=== PATIENT | male | born 1935 | race Caucasian/White ===

== ENCOUNTER 2019-01-02 10:08 | Observation (INO) | payer MEDICARE, BC ==
--- NOTE | 2019-01-02 10:45 | EDM.PDOC ---
ED HPI GENERAL MEDICAL PROBLEM - General Chief Complaint: General Stated Complaint: MEDICAL [facility] Time Seen by Provider: 01/02/19 10:25 Source of Information: Reports: Patient, EMS History Limitations: Reports: No Limitations - History of Present Illness INITIAL COMMENTS - FREE TEXT/NARRATIVE: 83-year-old male brought in by EMS this morning after struggling with GI symptoms such as nausea, diarrhea, abdominal cramps and also cold symptoms with cough, runny nose for the past 2-3 days but today developed some chest pressure which scared him. He called EMS, and EKG looks stable from previous EKGs. He had taken some nitroglycerin prior to EMS arriving and was feeling better but had a few episodes in route of brief epigastric and substernal fullness with no change in vitals or EKG monitoring. While visiting with the patient he had another episode of one to two minutes of a fullness substernally. He felt uncomfortable yesterday with "sweats, I felt hot". Onset: Gradual Duration: Day(s): (Intermittent symptoms for the past 3-4 days) Location: Reports: Chest, Abdomen Associated Symptoms: Reports: Chest Pain, Fever/Chills, Malaise, Shortness of Breath, Other (Rhinitis, diarrhea) Lower Back Pain Score (Numeric/FACES): 8 - Related Data Allergies Allergy/AdvReac Type Severity Reaction Status Date / Time No Known Allergies Allergy Verified 06/23/15 16:51 Home Meds: Home Meds Aspirin 325 mg PO DAILY 08/10/13 [History] Diltiazem HCl [Diltiazem 12Hr ER] 90 mg PO BID 08/10/13 [History] Lisinopril/Hydrochlorothiazide [Lisinopril-Hctz 20-12.5 mg Tab] 1 each PO BID [History] Metoprolol Succinate [Toprol XL 50mg] 1 tab PO DAILY 08/10/13 [History] Nitroglycerin 0.4 mg SL ASDIRECTED PRN 08/10/13 [History] Simvastatin 1 tab PO BEDTIME 08/10/13 [History] Omeprazole 40 mg PO DAILY 06/23/15 [History] Hydrocodone/Acetaminophen [Hydrocodon-Acetaminophn 10-325] 2 tab PO Q8H PRN [History] LORazepam 0.5 mg PO Q8H PRN 01/02/19 [History] Past Medical History HEENT History: Reports: Impaired Vision Cardiovascular History: Reports: Bypass, CAD, Hypertension, Stents Gastrointestinal History: Reports: Diverticulosis Genitourinary History: Reports: Prostate Disorder Musculoskeletal History: Reports: Arthritis, Back Pain, Chronic Other Oncologic History: skin Other Dermatologic History: skin cancer - Infectious Disease History Infectious Disease History: Reports: Chicken Pox, Measles, Mumps - Past Surgical History Cardiovascular Surgical History: Reports: Valve Replacement, Other (See Below) GI Surgical History: Reports: Appendectomy, Cholecystectomy, Colonoscopy, EGD, Hernia Repair/Other Social & Family History - Family History Cardiac: Reports: CAD, [place] : Reports: Renal Disease/Insufficiency Oncologic: Reports: Brain - Tobacco Use Smoking Status *Q: Former Smoker Used Tobacco, but Quit: Yes Month/Year Tobacco Last Used: many years ago - Caffeine Use Caffeine Use: Reports: Coffee Caffeine Use Comment: rarely - Recreational Drug Use Recreational Drug Use: No ED ROS GENERAL - Review of Systems Review Of Systems: See Below Constitutional: Reports: Fever, Chills, Malaise HEENT: Reports: Rhinitis. Denies: Throat Pain Respiratory: Reports: Shortness of Breath, Cough. Denies: Sputum Cardiovascular: Reports: Chest Pain (Substernal pressure) GI/Abdominal: Reports: Abdominal Pain, Diarrhea, Nausea : Reports: No Symptoms Skin: Reports: Other (Healing chronic lesions on his lower extremities) Neurological: Denies: Headache, Paresthesia Psychiatric: Reports: No Symptoms ED EXAM, GENERAL - Physical Exam Exam: See Below Exam Limited By: No Limitations General Appearance: Alert, No Apparent Distress Neck: Non-Tender Respiratory/Chest: No Respiratory Distress, Lungs Clear Cardiovascular: Regular Rate, Rhythm, Systolic Murmur (Significant 3/6 systolic murmur) GI/Abdominal: Normal Bowel Sounds, Tender (Diffuse tenderness and mild distention of the abdomen on palpation) Extremities: Other (1+ symmetric pitting edema with healing dry ulcerations around the ankles) Neurological: Alert, Oriented Psychiatric: Normal Affect, Normal Mood EKG INTERPRETATION Rhythm: NSR QRS: RBBB EKG Interpretation Comments: EKG looks identical to 3 years ago Course - Vital Signs Last Recorded V/S: Last Vital Signs Temp 99.4 F 01/02/19 15:27 Pulse 88 01/02/19 15:27 Resp 18 01/02/19 15:27 BP 155/65 H 01/02/19 15:27 Pulse Ox 99 01/02/19 15:27 - Orders/Labs/Meds Orders: Active Orders 24 hr Category Date Time Status EKG Documentation Completion [RC] ASDIRECTED Care 01/02/19 10:36 Active EKG 12 Lead [EK] Routine Ther 01/02/19 10:35 Ordered Medication Orders Sodium Chloride (Normal Saline) 1,000 mls @ 125 mls/hr IV ASDIRECTED CLARA Last Admin: 01/02/19 13:48 Dose: 125 mls/hr Labs: Laboratory Tests 01/02/19 01/02/19 01/02/19 Range/Units 10:35 10:50 11:05 WBC 9.5 (4.5-11.0) K/uL RBC 3.93 L (4.30-5.90) M/uL Hgb 11.6 L (12.0-15.0) g/dL Hct 35.6 L (40.0-54.0) % MCV 91 (80-98) fL MCH 30 (27-31) pg MCHC 33 (32-36) % Plt Count 235 (150-400) K/uL Neut % (Auto) 82 H (36-66) % Lymph % (Auto) 7 L (24-44) % [place] % (Auto) 11 H (2-6) % Eos % (Auto) 0 L (2-4) % Baso % (Auto) 0 (0-1) % Sodium 133 L (140-148) mmol/L Potassium 3.9 (3.6-5.2) mmol/L Chloride 95 L (100-108) mmol/L Carbon Dioxide 28 (21-32) mmol/L Anion Gap 13.9 (5.0-14.0) mmol/L BUN 17 (7-18) mg/dL Creatinine 1.2 (0.8-1.3) mg/dL Est Cr Clr Drug Dosing 38.98 mL/min Estimated GFR (MDRD) 58 L (>60) Glucose 127 H (74-106) mg/dL Calcium 9.1 (8.5-10.1) mg/dL Total Bilirubin 1.5 H D (0.2-1.0) mg/dL AST 18 (15-37) U/L ALT 16 (12-78) U/L Alkaline Phosphatase 83 (46-116) U/L Troponin I < 0.017 (0.000-0.056) ng/mL Total Protein 7.5 (6.4-8.2) g/dL Albumin 3.7 (3.4-5.0) g/dL Globulin 3.8 H (2.3-3.5) g/dL Albumin/Globulin Ratio 1.0 L (1.2-2.2) Lipase 55 L (73-393) U/L Urine Color Yellow (YELLOW) Urine Appearance Clear (CLEAR) Urine pH 7.0 (5.0-8.0) Ur Specific [place] 1.015 (1.008-1.030) Urine Protein Negative (NEGATIVE) mg/dL Urine Glucose (UA) Negative (NEGATIVE) mg/dL Urine Ketones Negative (NEGATIVE) mg/dL Urine Occult Blood Small H (NEGATIVE) Urine Nitrite Negative (NEGATIVE) Urine Bilirubin Negative (NEGATIVE) Urine Urobilinogen 0.2 (0.2-1.0) EU/dL Ur Leukocyte Esterase Negative (NEGATIVE) Urine RBC 0-5 (0-5) Urine WBC Not seen (0-5) Ur Epithelial Cells Rare Amorphous Sediment Not seen Urine Bacteria Not seen Urine Mucus Not seen Meds: Medications Generic Name Dose Route Start Last Admin Trade Name Freq PRN Reason Stop Dose Admin Sodium Chloride 1,000 mls @ 125 mls/hr 01/02/19 13:45 01/02/19 13:48 Normal Saline IV 125 mls/hr ASDIRECTED CLARA Administration Discontinued Medications Generic Name Dose Route Start Last Admin Trade Name Freq PRN Reason Stop Dose Admin Fentanyl 50 mcg 01/02/19 14:03 01/02/19 14:07 Sublimaze IVPUSH 01/02/19 14:04 50 mcg ONETIME ONE Administration - Re-Assessments/Exams Free Text/Narrative Re-Assessment/Exam: 01/02/19 10:47 EKG is stable from 3 years ago and shows no acute ST findings. CBC, CMP, troponin and lipase were obtained as well as influenza antigens. Two-view chest x-ray will be obtained, likely will need to evaluate the abdomen with a CT scan. No acute medications or treatment is needed at this time. 01/02/19 11:20 Chest x-ray is negative for acute findings, labs are reassuring with a negative troponin, normal electrolytes and white count. Abdomen and pelvis CT without contrast was obtained. UA was also negative. 01/02/19 12:09 Influences were also negative. There does appear to be a large amount of small and large bowel air on the CT scan, awaiting official report. 01/02/19 12:34 CT report Impression : 1. Diffuse scattered fluid-filled mildly distended small bowel loops. No transition point identified findings probably reflect ileus. Repeat imaging could be performed if patient`s symptoms worsen. 2. Diverticulosis . 3. Enlarged prostate gland with trabeculated appearance of the urinary bladder with multiple small diverticula likely related to bladder outlet obstruction Above findings were discussed with Dr. Franks of the hospitalist service after the patient related that he was concerned about going home with his current symptoms. He'll be assessed for admission for gastroenteritis and ileus Departure - Departure Time of Disposition: 14:20 Disposition: Admitted As Inpatient 64 Clinical Impression: Gastroenteritis, Ileus Abdominal pain Qualifiers: Abdominal location: generalized Qualified Code(s): R10.84 - Generalized abdominal pain - Discharge Information - My Orders Last 24 Hours: My Active Orders 01/02/19 10:35 EKG 12 Lead [EK] Routine 01/02/19 10:36 EKG Documentation Completion [RC] ASDIRECTED - Assessment/Plan Last 24 Hours: My Active Orders 01/02/19 10:35 EKG 12 Lead [EK] Routine 01/02/19 10:36 EKG Documentation Completion [RC] ASDIRECTED
--- NOTE | 2019-01-02 11:03 | CRLCR ---
INDICATION: Dyspnea Indication: Dyspnea. Technique: Chest, two views. Comparison: 03/10/2016. Findings: Median sternotomy changes, with mediastinal surgical clips, compatible with prior CABG. There is diffuse pulmonary hyperinflation. There is no acute airspace disease. There is no pneumothorax. Lateral/posterior costophrenic sulci are sharp. Bowel gas pattern is normal in the upper abdomen. Heart size and pulmonary vasculature are normal. Impression: 1. Diffuse pulmonary hyperinflation. 2. No acute airspace disease. Dictated by Macario Teague MD @ 01/02/2019 11:01:22 AM Dictated by: Macario Teague MD @ 01/02/2019 11:01:46 (Electronically Signed)
--- NOTE | 2019-01-02 12:19 | CRLCT ---
INDICATION: Abdominal pain. TECHNIQUE: Noncontrast CT abdomen and pelvis. Coronal and sagittal re-formatted images obtained. Comparison: No comparison studies are available Findings: The heart size is normal. There is no pericardial effusion or pleural effusion. Basilar strandy atelectasis. The unenhanced spleen, pancreas, adrenal glands unenhanced liver appears unremarkable. Cholecystectomy there is biliary dilatation. Left kidney appears atrophic. Nonobstructing small renal calculi on the right. No hydronephrosis. Diverticulosis. Multiple gas and fluid filled mildly distended small bowel loops. No transition point identified. Findings probably reflect ileus. Multiple surgical clips in the in the right inguinal region could be related to prior inguinal hernia repair. No suspicious bony lesions. Enlarged prostate gland measuring 6.6 centimeters. Trabeculated appearance of the urinary bladder with multiple small diverticula. No suspicious bony lesions. Impression : 1. Diffuse scattered fluid-filled mildly distended small bowel loops. No transition point identified findings probably reflect ileus. Repeat imaging could be performed if patient`s symptoms worsen. 2. Diverticulosis . 3. Enlarged prostate gland with trabeculated appearance of the urinary bladder with multiple small diverticula likely related to bladder outlet obstruction Please note that all CT scans at this facility use dose modulation, iterative reconstruction, and/or weight-based dosing when appropriate to reduce radiation dose to as low as reasonably achievable. Dictated by Meghna Olsen MD @ Jan 02 2019 12:07PM Signed by Dr. Meghna Olsen @ Jan 02 2019 12:18PM
--- NOTE | 2019-01-02 13:41 | PCM.HP.2 ---
H&P History of Present Illness - General Date of Service: 01/02/19 Admit Problem/Dx: Admission Diagnosis/Problem Admission Diagnosis/Problem Gastroenteritis Source of Information: Patient, Provider History Limitations: Reports: No Limitations - History of Present Illness Initial Comments - Free Text/Narative: CC: I've had better days HPI: Blake presents today with several days of nasal congestion, shortness of breath, diarrhea and upper abdominal pressure. He first got sick on , just shy of one week ago. Initial symptoms were mostly upper respiratory with a mild cough and nasal congestion. He has developed mild shortness of breath but this seems to be getting better. Over the last 3 days he's had abdominal discomfort with a pressure-like pain in the upper abdomen. The pain does not radiate. The pain gets worse when he tries to eat and is better with belching and fasting. He has been taking pain pills but they don't seem to help the pain very much. He has nausea but has not vomited. He has had several watery bowel movements each day for the past few days. He has subjective fevers but temperatures measured at home have been normal. Appetite has been decreased in intake has been decreased. No complaints of chest pain. No change in bladder habits. He has mild lower extremity edema which is stable. He did have sick contacts with 2 grandchildren who he took care of her in the middle of last week before symptoms started. Laboratory workup in the emergency room was reassuring. Chest x-ray was clear. CT of the abdomen and pelvis did show some fluid-filled portions of the small intestine concerning for ileus or possibly gastroenteritis. Patient will be admitted for hydration, symptom management and observation. - Related Data Allergies/Adverse Reactions: Allergies Allergy/AdvReac Type Severity Reaction Status Date / Time No Known Allergies Allergy Verified 06/23/15 16:51 Home Medications: Home Meds Aspirin 325 mg PO DAILY 08/10/13 [History] Diltiazem HCl [Diltiazem 12Hr ER] 90 mg PO BID 08/10/13 [History] Lisinopril/Hydrochlorothiazide [Lisinopril-Hctz 20-12.5 mg Tab] 1 each PO BID [History] Metoprolol Succinate [Toprol XL 50mg] 1 tab PO DAILY 08/10/13 [History] Nitroglycerin 0.4 mg SL ASDIRECTED PRN 08/10/13 [History] Simvastatin 1 tab PO BEDTIME 08/10/13 [History] Omeprazole 40 mg PO DAILY 06/23/15 [History] Hydrocodone/Acetaminophen [Hydrocodon-Acetaminophn 10-325] 2 tab PO Q8H PRN [History] LORazepam 0.5 mg PO Q8H PRN 01/02/19 [History] Past Medical History HEENT History: Reports: Impaired Vision Cardiovascular History: Reports: Bypass, CAD, Hypertension, Stents Gastrointestinal History: Reports: Diverticulosis Genitourinary History: Reports: Prostate Disorder Musculoskeletal History: Reports: Arthritis, Back Pain, Chronic Other Oncologic History: skin Other Dermatologic History: skin cancer - Infectious Disease History Infectious Disease History: Reports: Chicken Pox, Measles, Mumps - Past Surgical History Cardiovascular Surgical History: Reports: Valve Replacement, Other (See Below) GI Surgical History: Reports: Appendectomy, Cholecystectomy, Colonoscopy, EGD, Hernia Repair/Other Social & Family History - Family History Cardiac: Reports: CAD, [place] : Reports: Renal Disease/Insufficiency Oncologic: Reports: Brain - Tobacco Use Smoking Status *Q: Former Smoker Used Tobacco, but Quit: Yes Month/Year Tobacco Last Used: many years ago - Caffeine Use Caffeine Use: Reports: Coffee Caffeine Use Comment: rarely - Recreational Drug Use Recreational Drug Use: No H&P Review of Systems - Review of Systems: Review Of Systems: See Below Free Text/Narrative: A complete 12 point review of systems was obtained. Pertinent positives and negatives are noted in the history of present illness. All other systems were reviewed and were negative except as noted. Exam - Exam Exam: See Below - Vital Signs Vital Signs: Last Vital Signs Temp 36.4 C 01/02/19 10:11 Pulse 89 01/02/19 10:39 Resp 11 L 01/02/19 10:39 BP 143/70 H 01/02/19 10:39 Pulse Ox 97 01/02/19 10:39 Weight: 61.235 kg - Exam Quality Assessment: No: Supplemental Oxygen General: Alert, Oriented, Cooperative. No: Mild Distress HEENT: Pupils Equal. No: Mucosa Moist & [place] (dry), Scleral Icterus Neck: Supple, Trachea Midline. No: Lymphadenopathy Lungs: Clear to Auscultation, Normal Respiratory Effort Cardiovascular: Regular Rate, Regular Rhythm, Systolic Murmur GI/Abdominal Exam: Normal Bowel Sounds, Soft, No Distention, Tender (moderate, generalized ) Back Exam: Normal Inspection, Full Range of Motion Extremities: Pedal Edema. No: Increased Warmth Skin: Warm, Dry, Wound (2 cm scab on left anterior reynolds ) Neuro Extensive - Mental Status: Alert, Oriented x3, Nl Response to Commands Neuro Extensive - Motor, Sensory, Reflexes: No: Dysarthria, Abnormal Motor, Tremor Psychiatric: Alert, Normal Affect - Patient Data Lab Results Last 24 hrs: Laboratory Results - last 24 hr 01/02/19 01/02/19 01/02/19 Range/Units 10:35 10:50 11:05 WBC 9.5 (4.5-11.0) K/uL RBC 3.93 L (4.30-5.90) M/uL Hgb 11.6 L (12.0-15.0) g/dL Hct 35.6 L (40.0-54.0) % MCV 91 (80-98) fL MCH 30 (27-31) pg MCHC 33 (32-36) % Plt Count 235 (150-400) K/uL Neut % (Auto) 82 H (36-66) % Lymph % (Auto) 7 L (24-44) % [place] % (Auto) 11 H (2-6) % Eos % (Auto) 0 L (2-4) % Baso % (Auto) 0 (0-1) % Sodium 133 L (140-148) mmol/L Potassium 3.9 (3.6-5.2) mmol/L Chloride 95 L (100-108) mmol/L Carbon Dioxide 28 (21-32) mmol/L Anion Gap 13.9 (5.0-14.0) mmol/L BUN 17 (7-18) mg/dL Creatinine 1.2 (0.8-1.3) mg/dL Est Cr Clr Drug Dosing 38.98 mL/min Estimated GFR (MDRD) 58 L (>60) Glucose 127 H (74-106) mg/dL Calcium 9.1 (8.5-10.1) mg/dL Total Bilirubin 1.5 H D (0.2-1.0) mg/dL AST 18 (15-37) U/L ALT 16 (12-78) U/L Alkaline Phosphatase 83 (46-116) U/L Troponin I < 0.017 (0.000-0.056) ng/mL Total Protein 7.5 (6.4-8.2) g/dL Albumin 3.7 (3.4-5.0) g/dL Globulin 3.8 H (2.3-3.5) g/dL Albumin/Globulin Ratio 1.0 L (1.2-2.2) Lipase 55 L (73-393) U/L Urine Color Yellow (YELLOW) Urine Appearance Clear (CLEAR) Urine pH 7.0 (5.0-8.0) Ur Specific [place] 1.015 (1.008-1.030) Urine Protein Negative (NEGATIVE) mg/dL Urine Glucose (UA) Negative (NEGATIVE) mg/dL Urine Ketones Negative (NEGATIVE) mg/dL Urine Occult Blood Small H (NEGATIVE) Urine Nitrite Negative (NEGATIVE) Urine Bilirubin Negative (NEGATIVE) Urine Urobilinogen 0.2 (0.2-1.0) EU/dL Ur Leukocyte Esterase Negative (NEGATIVE) Urine RBC 0-5 (0-5) Urine WBC Not seen (0-5) Ur Epithelial Cells Rare Amorphous Sediment Not seen Urine Bacteria Not seen Urine Mucus Not seen Result Diagrams: 01/02/19 10:35 01/02/19 10:50 Alberto Results Last 24 hrs: Microbiology 01/02/19 10:42 Influenza Type A Antigen Screen - Final Nasal, Unspecified NEGATIVE INFLUENZA A VIRUS AG REFERENCE RANGE: NEGATIVE Influenza Type B Antigen Screen - Final NEGATIVE INFLUENZA B VIRUS AG REFERENCE RANGE: NEGATIVE Imaging Impressions Last 24 hrs: CXR - images personally reviewed - lungs are clear, no mass, infiltrate or effusion. s/p sternotomy EKG INTERPRETATION EKG Date: 01/02/19 Rhythm: NSR Rate (Beats/Min): 83 [place]: RAD-Right [place] Deviation QRS: RBBB ST-T: Normal QT: Normal Comparison: No Change *Q Meaningful Use (ADM) - VTE Risk Assess *Q Each Risk Factor Represents 1 Point: Swollen Legs, Current Total Score 1 Point Risk Factors: 1 Each Risk Factor Represents 2 Points: None Total Score 2 Point Risk Factors: 0 Each Risk Factor Represents 3 Points: Age 75 Years or Greater Total Score 3 Point Risk Factors: 3 Each Risk Factor Represents 5 Points: None Total Score 5 Point Risk Factors: 0 Venous Thromboembolism Risk Factor Score *Q: 4 - Problem List (1) Gastroenteritis SNOMED Code(s): 84882560 ICD Code: K52.9 - NONINFECTIVE GASTROENTERITIS AND COLITIS, UNSPECIFIED Status: Acute Current Visit: Yes Problem List Initiated/Reviewed/Updated: Yes Orders Last 24hrs: Active Orders 24 hr Category Date Time Status Patient Status Manage Transfer [TRANSFER] Routine ADT 01/02/19 13:31 Active EKG Documentation Completion [RC] ASDIRECTED Care 01/02/19 10:36 Active Sodium Chloride 0.9% [Normal Saline] 1,000 ml Med 01/02/19 13:45 Active IV ASDIRECTED Resuscitation Status Routine Resus Stat 01/02/19 13:32 Ordered EKG 12 Lead [EK] Routine Ther 01/02/19 10:35 Ordered Medication Orders Sodium Chloride (Normal Saline) 1,000 mls @ 125 mls/hr IV ASDIRECTED CLARA Assessment/Plan Comment:: ASSESSMENT AND PLAN - Gastroenteritis - manifestations including nausea and diarrhea as well as abdominal pain. Labs are reassuring. CT scan consistent with gastroenteritis versus possibly ileus. Patient is dehydrated but not acutely ill and vitals are otherwise stable. -IV fluid hydration -Pain control -Nausea management -Advance diet as tolerated Coronary artery disease - long-standing history. No active symptoms. Troponin normal. -Continue medical management Maintenance issues - - DVT prophylaxis - ASHU stockings - GI prophylaxis - PPI - Nutrition - mechanical soft - James catheter - not indicated CODE STATUS - DNR/DNI Admission justification - patient will be referred observation status for hydration and symptom management Disposition - I would anticipate discharge home after the hospital stay Primary care physician - Dr Darion Franks M.D. - Mortality Measure Prognosis:: Good
[2019-01-02] MEDS: Sodium Chloride 0.9% 1,000 ML IV SCH ×2 (13:48→23:27)
[2019-01-02] MEDS ORDERED: fentaNYL 100 MCG/2 ML SDV IVPUSH ONE (14:03)
[2019-01-02] MEDS ORDERED: Ondansetron 4 MG/2 ML SDV IV PRN (15:55)
[2019-01-02] MEDS ORDERED: Melatonin 3 MG Tab PO PRN (15:55)
[2019-01-02] MEDS ORDERED: LORazepam 0.5 MG Tab PO PRN (15:55)
[2019-01-02] MEDS ORDERED: LORazepam 2 MG/ML SDV IVPUSH PRN (15:55)
[2019-01-02] MEDS ORDERED: Pantoprazole 40 MG Vial IV ONE (16:30)
[2019-01-02] MEDS: Ondansetron 4 MG Tab.DIS PO PRN (17:41)
[2019-01-02] MEDS: Acetaminophen/HYDROcodone 325-10 MG Tab PO PRN (17:42)
[2019-01-02] MEDS: HYDROCHLOROTHIAZIDE PO SCH (20:32)
[2019-01-02] MEDS: LISINOPRIL PO SCH (20:32)
[2019-01-02] MEDS: DILTIAZEM HCL 90 MG PO SCH (20:32)
[2019-01-02] MEDS ORDERED: SIMVASTATIN PO SCH (21:00)
[2019-01-03] MEDS: Acetaminophen/HYDROcodone 325-10 MG Tab PO PRN ×2 (07:17→17:16)
[2019-01-03] MEDS: Sodium Chloride 0.9% 1,000 ML IV SCH (07:18)
[2019-01-03] MEDS ORDERED: Tamsulosin 0.4 MG Cap.ER PO ONE (09:09)
[2019-01-03] MEDS: Aspirin 325 MG Tab.EC PO SCH (09:16)
[2019-01-03] MEDS: HYDROCHLOROTHIAZIDE PO SCH ×2 (09:17→20:16)
[2019-01-03] MEDS: LISINOPRIL PO SCH ×2 (09:17→20:16)
[2019-01-03] MEDS: DILTIAZEM HCL 90 MG PO SCH ×2 (09:17→20:16)
[2019-01-03] MEDS ORDERED: Potassium Chloride 20 MEQ Tab.ER PO ONE (09:30)
[2019-01-03] MEDS: Pantoprazole 40 MG Tab.CR PO SCH (09:33)
[2019-01-03] MEDS: Metoprolol Succinate 50 MG Tab.ER PO SCH (09:33)
--- NOTE | 2019-01-03 10:24 | PCM.PN ---
- General Info Date of Service: 01/03/19 Subjective Update: No acute events overnight. No fevers overnight. Abdominal pain has improved significantly but not resolved. He did have some diarrhea last night but none this morning. He did have urinary retention last night and a James catheter was placed. Appetite improving. Strength is improving. Functional Status: Reports: Pain Controlled, Tolerating Diet - Review of Systems General: Reports: Weakness. Denies: Fever Gastrointestinal: Reports: Abdominal Pain - Patient Data Vitals - Most Recent: Last Vital Signs Temp 37.5 C 01/03/19 07:38 Pulse 73 01/03/19 09:33 Resp 16 01/03/19 07:38 BP 142/70 H 01/03/19 09:33 Pulse Ox 93 L 01/03/19 07:38 Weight - Most Recent: 57.878 kg I&O - Last 24 Hours: Intake & Output 01/02/19 01/03/19 01/03/19 22:59 06:59 14:59 Intake Total 2025 480 Output Total 1600 Balance 425 480 Lab Results Last 24 Hours: Laboratory Results - last 24 hr 01/02/19 01/02/19 01/02/19 Range/Units 10:35 10:50 11:05 WBC 9.5 (4.5-11.0) K/uL RBC 3.93 L (4.30-5.90) M/uL Hgb 11.6 L (12.0-15.0) g/dL Hct 35.6 L (40.0-54.0) % MCV 91 (80-98) fL MCH 30 (27-31) pg MCHC 33 (32-36) % Plt Count 235 (150-400) K/uL Neut % (Auto) 82 H (36-66) % Lymph % (Auto) 7 L (24-44) % [place] % (Auto) 11 H (2-6) % Eos % (Auto) 0 L (2-4) % Baso % (Auto) 0 (0-1) % Sodium 133 L (140-148) mmol/L Potassium 3.9 (3.6-5.2) mmol/L Chloride 95 L (100-108) mmol/L Carbon Dioxide 28 (21-32) mmol/L Anion Gap 13.9 (5.0-14.0) mmol/L BUN 17 (7-18) mg/dL Creatinine 1.2 (0.8-1.3) mg/dL Est Cr Clr Drug Dosing 38.98 mL/min Estimated GFR (MDRD) 58 L (>60) Glucose 127 H (74-106) mg/dL Calcium 9.1 (8.5-10.1) mg/dL Total Bilirubin 1.5 H D (0.2-1.0) mg/dL AST 18 (15-37) U/L ALT 16 (12-78) U/L Alkaline Phosphatase 83 (46-116) U/L Troponin I < 0.017 (0.000-0.056) ng/mL Total Protein 7.5 (6.4-8.2) g/dL Albumin 3.7 (3.4-5.0) g/dL Globulin 3.8 H (2.3-3.5) g/dL Albumin/Globulin Ratio 1.0 L (1.2-2.2) Lipase 55 L (73-393) U/L Urine Color Yellow (YELLOW) Urine Appearance Clear (CLEAR) Urine pH 7.0 (5.0-8.0) Ur Specific [place] 1.015 (1.008-1.030) Urine Protein Negative (NEGATIVE) mg/dL Urine Glucose (UA) Negative (NEGATIVE) mg/dL Urine Ketones Negative (NEGATIVE) mg/dL Urine Occult Blood Small H (NEGATIVE) Urine Nitrite Negative (NEGATIVE) Urine Bilirubin Negative (NEGATIVE) Urine Urobilinogen 0.2 (0.2-1.0) EU/dL Ur Leukocyte Esterase Negative (NEGATIVE) Urine RBC 0-5 (0-5) Urine WBC Not seen (0-5) Ur Epithelial Cells Rare Amorphous Sediment Not seen Urine Bacteria Not seen Urine Mucus Not seen 01/03/19 01/03/19 Range/Units 04:24 04:24 WBC 9.6 (4.5-11.0) K/uL RBC 3.84 L (4.30-5.90) M/uL Hgb 11.1 L (12.0-15.0) g/dL Hct 34.8 L (40.0-54.0) % MCV 91 (80-98) fL MCH 29 (27-31) pg MCHC 32 (32-36) % Plt Count 224 (150-400) K/uL Neut % (Auto) (36-66) % Lymph % (Auto) (24-44) % [place] % (Auto) (2-6) % Eos % (Auto) (2-4) % Baso % (Auto) (0-1) % Sodium 138 L (140-148) mmol/L Potassium 3.6 (3.6-5.2) mmol/L Chloride 102 (100-108) mmol/L Carbon Dioxide 27 (21-32) mmol/L Anion Gap 12.6 (5.0-14.0) mmol/L BUN 13 (7-18) mg/dL Creatinine 1.1 (0.8-1.3) mg/dL Est Cr Clr Drug Dosing 40.19 mL/min Estimated GFR (MDRD) > 60 (>60) Glucose 113 H (74-106) mg/dL Calcium 8.7 (8.5-10.1) mg/dL Total Bilirubin (0.2-1.0) mg/dL AST (15-37) U/L ALT (12-78) U/L Alkaline Phosphatase (46-116) U/L Troponin I (0.000-0.056) ng/mL Total Protein (6.4-8.2) g/dL Albumin (3.4-5.0) g/dL Globulin (2.3-3.5) g/dL Albumin/Globulin Ratio (1.2-2.2) Lipase (73-393) U/L Urine Color (YELLOW) Urine Appearance (CLEAR) Urine pH (5.0-8.0) Ur Specific [place] (1.008-1.030) Urine Protein (NEGATIVE) mg/dL Urine Glucose (UA) (NEGATIVE) mg/dL Urine Ketones (NEGATIVE) mg/dL Urine Occult Blood (NEGATIVE) Urine Nitrite (NEGATIVE) Urine Bilirubin (NEGATIVE) Urine Urobilinogen (0.2-1.0) EU/dL Ur Leukocyte Esterase (NEGATIVE) Urine RBC (0-5) Urine WBC (0-5) Ur Epithelial Cells Amorphous Sediment Urine Bacteria Urine Mucus Alberto Results Last 24 Hours: Microbiology 01/02/19 10:42 Influenza Type A Antigen Screen - Final Nasal, Unspecified NEGATIVE INFLUENZA A VIRUS AG REFERENCE RANGE: NEGATIVE Influenza Type B Antigen Screen - Final NEGATIVE INFLUENZA B VIRUS AG REFERENCE RANGE: NEGATIVE Med Orders - Current: Current Medications Hydrocodone Bitart/Acetaminophen ([place] 325-10 Mg) 2 tab PO Q8H PRN PRN Reason: Pain Last Admin: 01/03/19 07:17 Dose: 2 tab Aspirin (Ecotrin) 325 mg PO DAILY [facility] Last Admin: 01/03/19 09:16 Dose: 325 mg Sodium Chloride (Normal Saline) 1,000 mls @ 125 mls/hr IV ASDIRECTED [facility] Last Admin: 01/03/19 07:18 Dose: 125 mls/hr Lorazepam (Ativan) 0.5 mg IVPUSH Q4H PRN PRN Reason: Nausea/Vomiting Last Admin: 01/02/19 18:38 Dose: 0.5 mg Lorazepam (Ativan) 0.5 mg PO Q8H PRN PRN Reason: Anxiety Melatonin (Melatonin) 9 mg PO BEDTIME PRN PRN Reason: Sleep Metoprolol Succinate (Toprol Xl) 50 mg PO DAILY [facility] Last Admin: 01/03/19 09:33 Dose: 50 mg Diltiazem Hcl [ Diltiazem 12hr Er] 90 Mg*Pom* 90 mg PO BID [facility] Last Admin: 01/03/19 09:17 Dose: 90 mg Lisinopril/Hydrochlorothiazide( Lisinopril-Hctz) 20- 12.5 *Pom* 1 each PO BID [facility] Last Admin: 01/03/19 09:17 Dose: 1 each Non-Formulary Medication (Simvastatin [Simvastatin]) 1 tab PO BEDTIME [facility] Ondansetron HCl (Zofran Odt) 4 mg PO Q6H PRN PRN Reason: Nausea able to take PO Last Admin: 01/02/19 17:41 Dose: 4 mg Ondansetron HCl (Zofran) 4 mg IV Q6H PRN PRN Reason: Nausea/Vomiting Pantoprazole Sodium (Protonix) 40 mg PO DAILY [facility] Last Admin: 01/03/19 09:33 Dose: 40 mg Discontinued Medications Fentanyl (Sublimaze) 50 mcg IVPUSH ONETIME ONE Stop: 01/02/19 14:04 Last Admin: 01/02/19 14:07 Dose: 50 mcg Pantoprazole Sodium (Protonix Iv) 40 mg IV ONETIME ONE Stop: 01/02/19 16:31 Last Admin: 01/02/19 17:38 Dose: 40 mg Potassium Chloride (Klor-Con M20) 40 meq PO ONETIME ONE Stop: 01/03/19 09:31 Last Admin: 01/03/19 09:16 Dose: 40 meq Tamsulosin HCl (Flomax) 0.4 mg PO ONETIME ONE Stop: 01/03/19 09:10 Last Admin: 01/03/19 09:16 Dose: 0.4 mg - Exam Quality Assessment: No: Supplemental Oxygen General: Alert, Oriented, Cooperative, No Acute Distress Lungs: Normal Respiratory Effort Cardiovascular: Regular Rate, Regular Rhythm GI/Abdominal Exam: Soft, No Distention, Tender (very mild on right side ) Extremities: Pedal Edema. No: Increased Warmth Skin: Warm, Dry, Other (scab left lower anterior reynolds) Psy/Mental Status: Alert, Normal Affect - Problem List & Annotations (1) Gastroenteritis SNOMED Code(s): 01303998 Code(s): K52.9 - NONINFECTIVE GASTROENTERITIS AND COLITIS, UNSPECIFIED Status: Acute Current Visit: Yes - Problem List Review Problem List Initiated/Reviewed/Updated: Yes - My Orders Last 24 Hours: My Active Orders 01/02/19 13:32 Resuscitation Status Routine 01/02/19 13:45 Sodium Chloride 0.9% [Normal Saline] 1,000 ml IV ASDIRECTED 01/02/19 15:55 Patient Status [ADT] Routine Intake and Output [RC] QSHIFT Notify Provider Vital Signs [RC] ASDIRECTED Oxygen Therapy [RC] PRN Up With Assistance [RC] ASDIRECTED VTE/DVT Education [RC] Per Unit Routine Vital Signs [RC] Q4H Acetaminophen/HYDROcodone [[place] 325-10 MG] 2 tab PO Q8H PRN LORazepam [Ativan] 0.5 mg IVPUSH Q4H PRN LORazepam [Ativan] 0.5 mg PO Q8H PRN Melatonin 9 mg PO BEDTIME PRN Ondansetron [Zofran ODT] 4 mg PO Q6H PRN Ondansetron [Zofran] 4 mg IV Q6H PRN Antiembolic Hose [OM.PC] Routine 01/02/19 21:00 Diltiazem HCl [Diltiazem 12Hr ER] 90 mg PO BID Lisinopril/Hydrochlorothiazide [Lisinopril-Hctz 20-12.5 mg Tab] 1 each PO BID Simvastatin [Simvastatin] 1 tab PO BEDTIME 10/23/19 Dinner Mechanical Soft Diet [DIET] 01/03/19 09:00 Aspirin [Ecotrin] 325 mg PO DAILY Metoprolol Succinate [Toprol XL] 50 mg PO DAILY Pantoprazole [ProTONIX] 40 mg PO DAILY 01/03/19 10:22 Peripheral IV Discontinue [OM.PC] Routine 01/03/19 13:00 DC James Catheter [Urinary Catheter Removal] [RC] Per Unit Routine 01/04/19 05:00 BASIC METABOLIC PANEL,BMP [CHEM] Timed - Plan Plan:: ASSESSMENT AND PLAN - Gastroenteritis - manifestations including nausea and diarrhea as well as abdominal pain. Clinically much better. Vitals are stable. Little weak but otherwise doing fairly well. -Encourage oral intake -Dietary supplements -Pain control -Nausea management -Advance diet as tolerated Acute urinary retention with BPH - James catheter was placed last night because of inability to void. -Tamsulosin 1 this morning -Removed catheter this afternoon Coronary artery disease - long-standing history. No active symptoms. Troponin normal. -Continue medical management Maintenance issues - - DVT prophylaxis - ASHU stockings - GI prophylaxis - PPI - Nutrition - mechanical soft - James catheter - placed last night because of urinary retention, plan to remove this afternoon Admission justification - patient will be referred observation status for hydration and symptom management Disposition - I would anticipate discharge home after the hospital stay Primary care physician - Dr Darion Franks M.D.
[2019-01-03] MEDS: Ondansetron 4 MG Tab.DIS PO PRN (21:29)
[2019-01-04] MEDS: Acetaminophen/HYDROcodone 325-10 MG Tab PO PRN (03:46)
[2019-01-04] MEDS: DILTIAZEM HCL 90 MG PO SCH (08:42)
[2019-01-04] MEDS: LISINOPRIL PO SCH (08:43)
[2019-01-04] MEDS: Aspirin 325 MG Tab.EC PO SCH (08:43)
[2019-01-04] MEDS: HYDROCHLOROTHIAZIDE PO SCH (08:43)
[2019-01-04] MEDS: Metoprolol Succinate 50 MG Tab.ER PO SCH (08:44)
[2019-01-04] MEDS: Pantoprazole 40 MG Tab.CR PO SCH (08:44)
[2019-01-04 08:50] VITALS: PULSE 84
--- NOTE | 2019-01-04 09:50 | PCM.DCSUM1 ---
Discharge Summary - Hospital Course Brief History: 83-year-old male with history of coronary artery disease who presented with rhinitis, abdominal pain, nausea and diarrhea. He was admitted for management of dehydration with presumed viral gastroenteritis. Diagnosis: Stroke: No - Discharge Data Discharge Date: 01/04/19 Discharge Disposition: Home, Self-Care 01 Condition: Good - Referral to Home Health Primary Care Physician: PCP None - Discharge Diagnosis/Problem(s) (1) Gastroenteritis SNOMED Code(s): 61841602 ICD Code: K52.9 - NONINFECTIVE GASTROENTERITIS AND COLITIS, UNSPECIFIED Status: Acute - Patient Summary/Data Hospital Course: Al presented to the emergency room with rhinitis, nausea, abdominal pain and diarrhea. Workup in the emergency room revealed a reassuring laboratory studies. CT scan of the abdomen and pelvis showed nonspecific fluid retained throughout the small intestine concerning for either ileus or gastroenteritis. There was evidence for dehydration. He was admitted to observation for hydration and symptom management. Overnight following admission his diarrhea improved significantly and then resolved the day after admission. His nausea resolved. He was able to slowly advance his appetite. He did have difficulty with urinary retention overnight after admission and a James catheter was placed. This was removed the next day and there have been no urinary issues since that time. He has been able to return his appetite to baseline. Strength has improved with increased activity. He did have a low-grade fever the night prior to discharge but otherwise vitals are stable and he's feeling much better. I suspect he had a viral gastroenteritis and did have sick contacts prior to coming into the hospital. He is stable and safe for discharge at this time. - Patient Instructions Diet: Regular Diet as Tolerated Activity: As Tolerated Driving: May Drive Today Showering/Bathing: May Shower Notify Provider of: Fever, Increased Pain, Nausea and/or Vomiting - Discharge Plan *PRESCRIPTION DRUG MONITORING PROGRAM REVIEWED*: Not Applicable *COPY OF PRESCRIPTION DRUG MONITORING REPORT IN PATIENT JOEL: Not Applicable Home Medications: Home Meds Aspirin 325 mg PO DAILY 08/10/13 [History] Diltiazem HCl [Diltiazem 12Hr ER] 90 mg PO BID 08/10/13 [History] Lisinopril/Hydrochlorothiazide [Lisinopril-Hctz 20-12.5 mg Tab] 1 each PO BID [History] Metoprolol Succinate [Toprol XL 50mg] 1 tab PO DAILY 08/10/13 [History] Nitroglycerin 0.4 mg SL ASDIRECTED PRN 08/10/13 [History] Simvastatin 1 tab PO BEDTIME 08/10/13 [History] Omeprazole 40 mg PO DAILY 06/23/15 [History] Hydrocodone/Acetaminophen [Hydrocodon-Acetaminophn 10-325] 2 tab PO Q8H PRN [History] LORazepam 0.5 mg PO Q8H PRN 01/02/19 [History] Oxygen Therapy Mode: Room Air Patient Handouts: Viral Gastroenteritis, Adult Referrals: Marciano Orlando MD [Physician] - 01/16/19 1:30 pm (Please arrive 15 minutes early to register for appointment.) - Discharge Summary/Plan Comment DC Time >30 min.: No - Patient Data Vitals - Most Recent: Last Vital Signs Temp 36.6 C 01/04/19 07:25 Pulse 84 01/04/19 08:44 Resp 18 01/04/19 07:25 BP 114/42 L 01/04/19 08:44 Pulse Ox 99 01/04/19 07:25 Weight - Most Recent: 57.878 kg I&O - Last 24 hours: Intake & Output 01/03/19 01/04/19 01/04/19 22:59 06:59 14:59 Intake Total 480 1000 1000 Output Total 500 200 Balance -20 800 1000 Lab Results - Last 24 hrs: Laboratory Results - last 24 hr 01/04/19 Range/Units 05:00 Sodium 136 L (140-148) mmol/L Potassium 3.8 (3.6-5.2) mmol/L Chloride 101 (100-108) mmol/L Carbon Dioxide 27 (21-32) mmol/L Anion Gap 11.8 (5.0-14.0) mmol/L BUN 19 H (7-18) mg/dL Creatinine 1.2 (0.8-1.3) mg/dL Est Cr Clr Drug Dosing 36.84 mL/min Estimated GFR (MDRD) 58 L (>60) Glucose 133 H (74-106) mg/dL Calcium 8.5 (8.5-10.1) mg/dL Med Orders - Current: Current Medications Hydrocodone Bitart/Acetaminophen ([place] 325-10 Mg) 2 tab PO Q8H PRN PRN Reason: Pain Last Admin: 01/04/19 03:46 Dose: 2 tab Aspirin (Ecotrin) 325 mg PO DAILY [facility] Last Admin: 01/04/19 08:43 Dose: 325 mg Lorazepam (Ativan) 0.5 mg IVPUSH Q4H PRN PRN Reason: Nausea/Vomiting Last Admin: 01/02/19 18:38 Dose: 0.5 mg Lorazepam (Ativan) 0.5 mg PO Q8H PRN PRN Reason: Anxiety Last Admin: 01/04/19 00:40 Dose: 0.5 mg Melatonin (Melatonin) 9 mg PO BEDTIME PRN PRN Reason: Sleep Metoprolol Succinate (Toprol Xl) 50 mg PO DAILY [facility] Last Admin: 01/04/19 08:44 Dose: 50 mg Diltiazem Hcl [ Diltiazem 12hr Er] 90 Mg*Pom* 90 mg PO BID [facility] Last Admin: 01/04/19 08:42 Dose: 90 mg Lisinopril/Hydrochlorothiazide( Lisinopril-Hctz) 20- 12.5 *Pom* 1 each PO BID [facility] Last Admin: 01/04/19 08:43 Dose: 1 each Ondansetron HCl (Zofran Odt) 4 mg PO Q6H PRN PRN Reason: Nausea able to take PO Last Admin: 01/03/19 21:29 Dose: 4 mg Ondansetron HCl (Zofran) 4 mg IV Q6H PRN PRN Reason: Nausea/Vomiting Pantoprazole Sodium (Protonix) 40 mg PO DAILY [facility] Last Admin: 01/04/19 08:44 Dose: 40 mg Discontinued Medications Fentanyl (Sublimaze) 50 mcg IVPUSH ONETIME ONE Stop: 01/02/19 14:04 Last Admin: 01/02/19 14:07 Dose: 50 mcg Sodium Chloride (Normal Saline) 1,000 mls @ 125 mls/hr IV ASDIRECTED [facility] Last Admin: 01/03/19 07:18 Dose: 125 mls/hr Influenza Virus Vaccine (Fluzone High-Dose Syringe) 180 mcg IM .ONCE ONE Stop: 01/03/19 21:01 Last Admin: 01/03/19 22:08 Dose: Not Given Influenza Virus Vaccine (Fluzone High-Dose Syringe) 180 mcg IM .ONCE ONE Stop: 01/04/19 09:01 Non-Formulary Medication (Simvastatin [Simvastatin]) 1 tab PO BEDTIME [facility] Pantoprazole Sodium (Protonix Iv) 40 mg IV ONETIME ONE Stop: 01/02/19 16:31 Last Admin: 01/02/19 17:38 Dose: 40 mg Potassium Chloride (Klor-Con M20) 40 meq PO ONETIME ONE Stop: 01/03/19 09:31 Last Admin: 01/03/19 09:16 Dose: 40 meq Tamsulosin HCl (Flomax) 0.4 mg PO ONETIME ONE Stop: 01/03/19 09:10 Last Admin: 01/03/19 09:16 Dose: 0.4 mg - Exam Quality Assessment: Denies: Supplemental Oxygen General: Reports: Alert, Oriented, Cooperative, No Acute Distress Lungs: Reports: Normal Respiratory Effort GI/Abdominal Exam: Soft, No Distention Extremities: Pedal Edema Psy/Mental Status: Reports: Alert, Normal Affect
[2019-01-04 11:28] VITALS: BP 126/54
== END 2019-01-04 11:46 | disposition home or self-care (01) ==
LOC: JP.ED 10:08 → JP.MS 13:31
PROVIDERS: ADMIT Internal Medicine; ATTEND Internal Medicine
DX: K52.9 Noninfective gastroenteritis and colitis, unspecified (principal); E86.0 Dehydration; I25.10 Atherosclerotic heart disease of native coronary artery without angina pectoris; I10 Essential (primary) hypertension; M19.90 Unspecified osteoarthritis, unspecified site; Z87.891 Personal history of nicotine dependence; Z79.82 Long term (current) use of aspirin; Z79.899 Other long term (current) drug therapy
CPT/HCPCS: 36415; 51702; 71046; 74176; 80048; 80053; 81001; 83690; 84484; 85025; 85027; 87804; 90662; 93005; 93010; 96361; 96374; 99217; 99218; 99225; 99283; 99285; A9270; C9113; G0008; J2060; J3010; J7030; 96375; G0378

== ENCOUNTER 2019-09-03 12:29 | Inpatient (IN) | payer MEDICARE, BC ==
[2019-09-03] MEDS ORDERED: Ondansetron 4 MG/2 ML SDV IVPUSH ONE (13:02)
[2019-09-03] MEDS ORDERED: HYDROmorphone 0.5 MG/0.5 ML Syringe IVPUSH ONE ×2 (13:02→15:43)
--- NOTE | 2019-09-03 13:10 | EDM.PDOC ---
ED HPI GENERAL MEDICAL PROBLEM - General Chief Complaint: Abdominal Pain Stated Complaint: [facility] Time Seen by Provider: 09/03/19 12:41 Source of Information: Reports: Patient History Limitations: Reports: Other (Patient perseverates on how severe his abdominal pain is and keeps telling me the same information over and over, not answering simple questions) - History of Present Illness Onset: Other (Patient cannot tell me a specific time when the pain started yesterday. States that the pain did get better briefly after a bowel movement. On further questioning the patient has had this pain recurring since December last year) Duration: Waxing/Waning Location: Reports: Abdomen Quality: Reports: Ache, Stabbing Severity: Severe Improves with: Reports: Other (Bowel movement) Worsens with: Reports: Eating Associated Symptoms: Reports: Diaphoresis, Nausea/Vomiting, Shortness of Breath (States he has had shortness of breath associated with anxiety.), Other (Has had sweats and nausea). 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 (see below) (Has not taken any of his prescribed medications today including lorazepam for anxiety) Abdomen Pain Score (Numeric/FACES): 5 - Related Data Allergies Allergy/AdvReac Type Severity Reaction Status Date / Time No Known Allergies Allergy Verified 06/23/15 16:51 Home Meds: Home Meds Aspirin 325 mg PO DAILY 08/10/13 [History] Lisinopril/Hydrochlorothiazide [Lisinopril-Hctz 20-12.5 mg Tab] 1 each PO BID 08/10/13 [History] Metoprolol Succinate [Toprol XL 50mg] 1 tab PO DAILY 08/10/13 [History] Nitroglycerin 0.4 mg SL ASDIRECTED PRN 08/10/13 [History] dilTIAZem HCL [Diltiazem 12Hr ER] 90 mg PO BID 08/10/13 [History] Hydrocodone/Acetaminophen [Hydrocodon-Acetaminophn 10-325] 2 tab PO Q8H PRN 01/02/19 [History] LORazepam 0.5 mg PO Q8H PRN 01/02/19 [History] Past Medical History HEENT History: Reports: Impaired Vision Cardiovascular History: Reports: Bypass, CAD, Hypertension, Stents Gastrointestinal History: Reports: Diverticulosis, GERD Genitourinary History: Reports: Prostate Disorder Musculoskeletal History: Reports: Arthritis, Back Pain, Chronic Other Oncologic History: skin Other Dermatologic History: skin cancer - Infectious Disease History Infectious Disease History: Reports: Chicken Pox, Measles, Mumps - Past Surgical History Cardiovascular Surgical History: Reports: Valve Replacement, Other (See Below) GI Surgical History: Reports: Appendectomy, Cholecystectomy, Colonoscopy, EGD, Hernia Repair/Other Social & Family History - Family History Cardiac: Reports: CAD, [place] : Reports: Renal Disease/Insufficiency Oncologic: Reports: Brain - Tobacco Use Smoking Status *Q: Former Smoker Used Tobacco, but Quit: Yes Month/Year Tobacco Last Used: 60 years ago - Caffeine Use Caffeine Use: Reports: Coffee Caffeine Use Comment: rarely - Recreational Drug Use Recreational Drug Use: No ED ROS GENERAL - Review of Systems Review Of Systems: See Below Constitutional: Reports: Chills, Night Sweats HEENT: Reports: No Symptoms Respiratory: Reports: Shortness of Breath. Denies: Wheezing, Cough Cardiovascular: Reports: Chest Pain (Epigastric pain. When I asked him to locate his pain he points to his left lower rib cage area) Endocrine: Reports: No Symptoms GI/Abdominal: Reports: Abdominal Pain, Distension (Dates abdomen is more swollen than usual), Nausea Musculoskeletal: Reports: No Symptoms Skin: Reports: No Symptoms ED EXAM, GI/ABD - Physical Exam Exam: See Below General Appearance: Alert Head: Atraumatic, Normocephalic Neck: Normal Inspection Respiratory/Chest: No Respiratory Distress, Lungs Clear Cardiovascular: Normal Peripheral Pulses GI/Abdominal Exam: Distended, Tender, Abnormal Bowel Sounds (High-pitched frequent bowel sounds). No: Guarding, Rebound EKG INTERPRETATION EKG Date: 09/03/19 Time: 13:15 Rhythm: Other (Complete heart block. No P waves seen.) Rate (Beats/Min): 59 P-Wave: Absent QRS: RBBB (Widened QRS with RSR prime pattern seen in leads V1, V2, and V3, consistent with a right bundle branch block.) Course - Vital Signs Text/Narrative:: Initial differential diagnosis includes: Gastroenteritis, small bowel obstruction, inferior cardiac ischemia, peptic ulcer disease, bowel perforation. X-ray shows clear brumfield and normal heart size, but does show marked bowel dilation. CT scan is suspicious for small bowel obstruction. At 1535 I did consult on-call surgeon who recommended NG, IVF, hospitalization and repeat XR in AM Last Recorded V/S: Last Vital Signs Temp 36.7 C 09/03/19 12:48 Pulse 65 09/03/19 15:35 Resp 14 09/03/19 12:48 BP 123/51 L 09/03/19 15:35 Pulse Ox 99 09/03/19 15:35 - Orders/Labs/Meds Orders: Active Orders 24 hr Category Date Time Status EKG Documentation Completion [RC] ASDIRECTED Care 09/03/19 13:00 Active Overnight Pulse Oximetry [RC] Click to Edit Care 09/03/19 13:28 Active Sodium Chloride 0.9% [Normal Saline] 1,000 ml Med 09/03/19 13:15 Active IV ASDIRECTED Sodium Chloride 0.9% [Normal Saline] 76 ml Med 09/03/19 13:15 Active IV ASDIRECTED Nasogastric Orogastric Tube Insertion [OM.PC] Routine Oth 09/03/19 15:43 Ordered Pulse Oximetry Continuous Monitoring [OM.PC] Routine Oth 09/03/19 13:27 Ordered EKG 12 Lead [EK] Urgent Ther 09/03/19 12:58 Ordered Medication Orders Sodium Chloride (Normal Saline) 1,000 mls @ 500 mls/hr IV ASDIRECTED [facility] Last Admin: 09/03/19 13:24 Dose: 500 mls/hr Documented by: PREILOR Sodium Chloride (Normal Saline) 76 mls @ 3.3 mls/sec IV ASDIRECTED [facility] Last Admin: 09/03/19 13:44 Dose: 3.3 mls/sec Documented by: DECRMIC Labs: Laboratory Tests 09/03/19 09/03/19 09/03/19 Range/Units 13:12 13:12 13:12 WBC 6.4 (4.5-11.0) K/uL RBC 3.85 L (4.30-5.90) M/uL Hgb 11.0 L (12.0-15.0) g/dL Hct 34.7 L (40.0-54.0) % MCV 90 (80-98) fL MCH 29 (27-31) pg MCHC 32 (32-36) % Plt Count 249 (150-400) K/uL PT 11.2 (9.5-12.0) sec INR 1.04 (0.80-1.20) Sodium (140-148) mmol/L Potassium (3.6-5.2) mmol/L Chloride (100-108) mmol/L Carbon Dioxide (21-32) mmol/L Anion Gap (5.0-14.0) mmol/L BUN (7-18) mg/dL Creatinine (0.8-1.3) mg/dL Est Cr Clr Drug Dosing mL/min Estimated GFR (MDRD) (>60) BUN/Creatinine Ratio Glucose (74-106) mg/dL Lactic Acid (0.4-2.0) mmol/L Calcium (8.5-10.1) mg/dL Total Bilirubin (0.2-1.0) mg/dL AST (15-37) U/L ALT (12-78) U/L Alkaline Phosphatase (46-116) U/L Troponin I < 0.017 (0.000-0.056) ng/mL Total Protein (6.4-8.2) g/dL Albumin (3.4-5.0) g/dL Globulin (2.3-3.5) g/dL Albumin/Globulin Ratio (1.2-2.2) Lipase (73-393) U/L Urine Color (YELLOW) Urine Appearance (CLEAR) Urine pH (5.0-8.0) Ur Specific [place] (1.008-1.030) Urine Protein (NEGATIVE) mg/dL Urine Glucose (UA) (NEGATIVE) mg/dL Urine Ketones (NEGATIVE) mg/dL Urine Occult Blood (NEGATIVE) Urine Nitrite (NEGATIVE) Urine Bilirubin (NEGATIVE) Urine Urobilinogen (0.2-1.0) EU/dL Ur Leukocyte Esterase (NEGATIVE) Urine RBC (0-5) Urine WBC (0-5) Ur Epithelial Cells Amorphous Sediment Urine Bacteria Urine Mucus 09/03/19 09/03/19 09/03/19 Range/Units 13:12 13:12 13:12 WBC (4.5-11.0) K/uL RBC (4.30-5.90) M/uL Hgb (12.0-15.0) g/dL Hct (40.0-54.0) % MCV (80-98) fL MCH (27-31) pg MCHC (32-36) % Plt Count (150-400) K/uL PT (9.5-12.0) sec INR (0.80-1.20) Sodium 134 L (140-148) mmol/L Potassium 4.1 (3.6-5.2) mmol/L Chloride 96 L (100-108) mmol/L Carbon Dioxide 32 (21-32) mmol/L Anion Gap 10.1 (5.0-14.0) mmol/L BUN 16 (7-18) mg/dL Creatinine 1.3 (0.8-1.3) mg/dL Est Cr Clr Drug Dosing 40.19 mL/min Estimated GFR (MDRD) 52 L (>60) BUN/Creatinine Ratio Not Reportable Glucose 143 H (74-106) mg/dL Lactic Acid 1.6 (0.4-2.0) mmol/L Calcium 9.2 (8.5-10.1) mg/dL Total Bilirubin 0.7 D (0.2-1.0) mg/dL AST 19 (15-37) U/L ALT 22 (12-78) U/L Alkaline Phosphatase 76 (46-116) U/L Troponin I (0.000-0.056) ng/mL Total Protein 7.6 (6.4-8.2) g/dL Albumin 3.8 (3.4-5.0) g/dL Globulin 3.8 H (2.3-3.5) g/dL Albumin/Globulin Ratio 1.0 L (1.2-2.2) Lipase 84 (73-393) U/L Urine Color (YELLOW) Urine Appearance (CLEAR) Urine pH (5.0-8.0) Ur Specific [place] (1.008-1.030) Urine Protein (NEGATIVE) mg/dL Urine Glucose (UA) (NEGATIVE) mg/dL Urine Ketones (NEGATIVE) mg/dL Urine Occult Blood (NEGATIVE) Urine Nitrite (NEGATIVE) Urine Bilirubin (NEGATIVE) Urine Urobilinogen (0.2-1.0) EU/dL Ur Leukocyte Esterase (NEGATIVE) Urine RBC (0-5) Urine WBC (0-5) Ur Epithelial Cells Amorphous Sediment Urine Bacteria Urine Mucus 09/03/19 Range/Units 14:57 WBC (4.5-11.0) K/uL RBC (4.30-5.90) M/uL Hgb (12.0-15.0) g/dL Hct (40.0-54.0) % MCV (80-98) fL MCH (27-31) pg MCHC (32-36) % Plt Count (150-400) K/uL PT (9.5-12.0) sec INR (0.80-1.20) Sodium (140-148) mmol/L Potassium (3.6-5.2) mmol/L Chloride (100-108) mmol/L Carbon Dioxide (21-32) mmol/L Anion Gap (5.0-14.0) mmol/L BUN (7-18) mg/dL Creatinine (0.8-1.3) mg/dL Est Cr Clr Drug Dosing mL/min Estimated GFR (MDRD) (>60) BUN/Creatinine Ratio Glucose (74-106) mg/dL Lactic Acid (0.4-2.0) mmol/L Calcium (8.5-10.1) mg/dL Total Bilirubin (0.2-1.0) mg/dL AST (15-37) U/L ALT (12-78) U/L Alkaline Phosphatase (46-116) U/L Troponin I (0.000-0.056) ng/mL Total Protein (6.4-8.2) g/dL Albumin (3.4-5.0) g/dL Globulin (2.3-3.5) g/dL Albumin/Globulin Ratio (1.2-2.2) Lipase (73-393) U/L Urine Color Yellow (YELLOW) Urine Appearance Clear (CLEAR) Urine pH 7.5 (5.0-8.0) Ur Specific [place] 1.015 (1.008-1.030) Urine Protein Negative (NEGATIVE) mg/dL Urine Glucose (UA) Negative (NEGATIVE) mg/dL Urine Ketones Negative (NEGATIVE) mg/dL Urine Occult Blood Trace-lysed H (NEGATIVE) Urine Nitrite Negative (NEGATIVE) Urine Bilirubin Negative (NEGATIVE) Urine Urobilinogen 0.2 (0.2-1.0) EU/dL Ur Leukocyte Esterase Negative (NEGATIVE) Urine RBC 0-5 (0-5) Urine WBC 0-5 (0-5) Ur Epithelial Cells Rare Amorphous Sediment Not seen Urine Bacteria Rare Urine Mucus Not seen Meds: Medications Generic Name Dose Route Start Last Admin Trade Name Freq PRN Reason Stop Dose Admin Sodium Chloride 1,000 mls @ 500 mls/hr 09/03/19 13:15 09/03/19 13:24 Normal Saline IV 500 mls/hr ASDIRECTED CLARA Administration Sodium Chloride 76 mls @ 3.3 mls/sec 09/03/19 13:15 09/03/19 13:44 Normal Saline IV 3.3 mls/sec ASDIRECTED CLARA Administration Discontinued Medications Generic Name Dose Route Start Last Admin Trade Name Jordan PRN Reason Stop Dose Admin Hydromorphone HCl 0.5 mg 09/03/19 13:02 09/03/19 13:28 Dilaudid IVPUSH 09/03/19 13:03 0.5 mg ONETIME ONE Administration Hydromorphone HCl 0.5 mg 09/03/19 15:43 Dilaudid IVPUSH 09/03/19 15:44 ONETIME ONE Iopamidol 100 ml 09/03/19 13:13 09/03/19 13:44 Isovue-300 (61%) IV 09/03/19 13:14 100 ml . DIRECTED ONE Administration Ondansetron HCl 4 mg 09/03/19 13:02 09/03/19 13:26 Zofran IVPUSH 09/03/19 13:03 4 mg ONETIME ONE Administration Departure - Departure Time of Disposition: 15:45 Disposition: Admitted As Inpatient 64 Clinical Impression: Heart block, Small bowel obstruction - Discharge Information Referrals: PCP,None [Primary Care Provider] - Forms: ED Department Discharge Sepsis Event Note (ED) - Evaluation Sepsis Screening Result: No Definite Risk - Focused Exam Vital Signs: Vital Signs Temp Pulse Resp BP Pulse Ox 09/03/19 15:35 65 123/51 L 99 09/03/19 15:12 60 143/65 H 09/03/19 12:48 36.7 C 59 L 14 125/47 L 99 09/03/19 12:36 36.7 C 59 L 14 125/47 L 99 - My Orders Last 24 Hours: My Active Orders 09/03/19 12:58 EKG 12 Lead [EK] Urgent 09/03/19 13:00 EKG Documentation Completion [RC] ASDIRECTED 09/03/19 13:15 Sodium Chloride 0.9% [Normal Saline] 1,000 ml IV ASDIRECTED Sodium Chloride 0.9% [Normal Saline] 76 ml IV ASDIRECTED 09/03/19 13:27 Pulse Oximetry Continuous Monitoring [OM.PC] Routine 09/03/19 13:28 Overnight Pulse Oximetry [RC] Click to Edit 09/03/19 15:43 Nasogastric Orogastric Tube Insertion [OM.PC] Routine - Assessment/Plan Last 24 Hours: My Active Orders 09/03/19 12:58 EKG 12 Lead [EK] Urgent 09/03/19 13:00 EKG Documentation Completion [RC] ASDIRECTED 09/03/19 13:15 Sodium Chloride 0.9% [Normal Saline] 1,000 ml IV ASDIRECTED Sodium Chloride 0.9% [Normal Saline] 76 ml IV ASDIRECTED 09/03/19 13:27 Pulse Oximetry Continuous Monitoring [OM.PC] Routine 09/03/19 13:28 Overnight Pulse Oximetry [RC] Click to Edit 09/03/19 15:43 Nasogastric Orogastric Tube Insertion [OM.PC] Routine
[2019-09-03] MEDS ORDERED: Iopamidol 612 MG/ML 100 ML Bottle IV ONE (13:13)
[2019-09-03] MEDS ORDERED: Sodium Chloride 0.9% 1,000 ML IV SCH (13:15)
--- NOTE | 2019-09-03 14:19 | CT ---
Abdomen Pelvis w Cont CLINICAL HISTORY: Abdominal pain, distention, nausea COMPARISON: 2019. TECHNIQUE: Transverse scans were obtained from the base of the lungs to the pubic symphysis following oral contrast and IV infusion of contrast.Auto dosage reduction and iterative reconstructiontechniques employed. FINDINGS: The lung bases are clear. The liver shows diffuse intrahepatic biliary distention.. The gallbladder has been removed. Common hepatic duct measures 17 mm The spleen has a normal size and shape. The pancreas is poorly seen. There may be some atrophy. There is severe diffuse small bowel distention. There are more normal caliber small bowel loops in the right lower quadrant suggesting obstruction within the mid to distal ileum. A definite transition point is not identified. There is some, clockwise rotation of the descending mesenteric vessels in the mid abdomen. This is new since prior study. The adrenal glands are normal bilaterally . There is a punctate stone in the midpole of the right kidney. Is no hydronephrosis. The left kidney is small with significant parenchymal thinning. The ureters have a normal course and caliber as seen. The aorta shows dense calcified plaque throughout. 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 The renal arteries are densely calcified. The bladder is distended and thick-walled. There is a very large prostate There is no suspicious retroperitoneal adenopathy. IMPRESSION: Significant small bowel distention with more normal bowel caliber involving the mid to distal ileum. This is suspect for obstruction. Clinical correlation is necessary. There is now a common clock orta rotation of descending mesenteric vessels which was not present on our study Moderate diffuse intrahepatic biliary dilatation is new since the 2019 study. Some. No definite stone is seen. Patient has had previous cholecystectomy. An element of distal common duct obstruction is not excluded. Significant prostatic enlargement
--- NOTE | 2019-09-03 14:20 | CR ---
CHEST: 2 view CLINICAL HISTORY:Epigastric pain COMPARISON:December 30, 2018 FINDINGS: The heart size, pulmonary vascularity and hilar structures are normal. No infiltrate effusion or pneumothorax is seen. Patient has had previous sternotomy. There are atherosclerotic changes in the aorta. Lungs are hyperaerated. Small bowel distention is also seen on abdominal CT IMPRESSION: No acute cardiopulmonary process. Hyperaeration
--- NOTE | 2019-09-03 16:57 | PCM.HP.2 ---
H&P History of Present Illness - General Date of Service: 09/03/19 Admit Problem/Dx: Admission Diagnosis/Problem Admission Diagnosis/Problem Abdominal pain Source of Information: Patient, Provider, RN Notes Reviewed History Limitations: Reports: No Limitations - History of Present Illness Initial Comments - Free Text/Narative: Mr. Lucero is an 83-year-old gentleman who was admitted through the emergency department with abdominal pain and nausea secondary to small bowel obstruction. He did not feel well last night had a large bowel movement and then diarrhea afterwards. After eating this morning he developed acute pain in his upper abdomen described as an intense ache which did not radiate. He noted no other precipitating or relieving factors. Because of the severe pain he was brought into the emergency department by EMS. CT scan shows evidence of small bowel obstruction. NG tube is been placed in the emergency department. Abdomen Pain Score (Numeric/FACES): 5 - Related Data Allergies/Adverse Reactions: Allergies Allergy/AdvReac Type Severity Reaction Status Date / Time No Known Allergies Allergy Verified 06/23/15 16:51 Home Medications: Home Meds Aspirin 325 mg PO DAILY 08/10/13 [History] Lisinopril/Hydrochlorothiazide [Lisinopril-Hctz 20-12.5 mg Tab] 1 each PO BID 08/10/13 [History] Metoprolol Succinate [Toprol XL 50mg] 1 tab PO DAILY 08/10/13 [History] Nitroglycerin 0.4 mg SL ASDIRECTED PRN 08/10/13 [History] dilTIAZem HCL [Diltiazem 12Hr ER] 90 mg PO BID 08/10/13 [History] Hydrocodone/Acetaminophen [Hydrocodon-Acetaminophn 10-325] 2 tab PO Q8H PRN 01/02/19 [History] LORazepam 0.5 mg PO Q8H PRN 01/02/19 [History] Past Medical History HEENT History: Reports: Impaired Vision Cardiovascular History: Reports: Bypass, CAD, Hypertension, Stents Gastrointestinal History: Reports: Diverticulosis, GERD Genitourinary History: Reports: Prostate Disorder Musculoskeletal History: Reports: Arthritis, Back Pain, Chronic Other Oncologic History: skin Other Dermatologic History: skin cancer - Infectious Disease History Infectious Disease History: Reports: Chicken Pox, Measles, Mumps - Past Surgical History Cardiovascular Surgical History: Reports: Valve Replacement, Other (See Below) GI Surgical History: Reports: Appendectomy, Cholecystectomy, Colonoscopy, EGD, Hernia Repair/Other Social & Family History - Family History Cardiac: Reports: CAD, [place] : Reports: Renal Disease/Insufficiency Oncologic: Reports: Brain - Tobacco Use Smoking Status *Q: Former Smoker Used Tobacco, but Quit: Yes Month/Year Tobacco Last Used: 60 years ago - Caffeine Use Caffeine Use: Reports: Coffee Caffeine Use Comment: rarely - Recreational Drug Use Recreational Drug Use: No H&P Review of Systems - Review of Systems: Review Of Systems: See Below General: Reports: No Symptoms HEENT: Reports: No Symptoms Pulmonary: Reports: No Symptoms Cardiovascular: Reports: No Symptoms Gastrointestinal: Reports: Abdominal Pain, Distension, Nausea. Denies: Difficulty Swallowing, Hematemesis, Hematochezia, Melena Genitourinary: Reports: No Symptoms Musculoskeletal: Reports: No Symptoms Skin: Reports: No Symptoms Psychiatric: Reports: No Symptoms Neurological: Reports: No Symptoms Hematologic/Lymphatic: Reports: No Symptoms Immunologic: Reports: No Symptoms Exam - Exam Exam: See Below - Vital Signs Vital Signs: Last Vital Signs Temp 98.1 F 09/03/19 12:48 Pulse 65 09/03/19 15:35 Resp 14 09/03/19 12:48 BP 123/51 L 09/03/19 15:35 Pulse Ox 99 09/03/19 15:35 Weight: 155 lb - Exam Quality Assessment: DVT Prophylaxis General: Alert, Oriented, Cooperative, Moderate Distress HEENT: Conjunctiva Clear, Hearing Intact, Normal Nasal Septum, Posterior Pharynx Clear, Pupils Equal. No: Mucosa Moist & [place] Neck: Supple, Trachea Midline, +2 Carotid Pulse wo Bruit Lungs: Clear to Auscultation, Normal Respiratory Effort Cardiovascular: Regular Rate, Regular Rhythm, Normal S1, Normal S2, Systolic Murmur GI/Abdominal Exam: No Organomegaly, Distended, Tender. No: Guarding, Rigid, Rebound Back Exam: Normal Inspection, Full Range of Motion Extremities: Non-Tender, No Pedal Edema Skin: Warm, Dry, Intact Neurological: Cranial Nerves Intact, Strength Equal Bilateral, Normal Speech, Normal Tone, Sensation Intact. No: Focal Deficit Neuro Extensive - Mental Status: Alert, Oriented x3, Normal Mood/Affect, Normal Cognition, Memory Intact - Patient Data Lab Results Last 24 hrs: Laboratory Results - last 24 hr 09/03/19 09/03/1909/02/20 Range/Units 13:12 13:12 13:12 WBC 6.4 (4.5-11.0) K/uL RBC 3.85 L (4.30-5.90) M/uL Hgb 11.0 L (12.0-15.0) g/dL Hct 34.7 L (40.0-54.0) % MCV 90 (80-98) fL MCH 29 (27-31) pg MCHC 32 (32-36) % Plt Count 249 (150-400) K/uL PT 11.2 (9.5-12.0) sec INR 1.04 (0.80-1.20) Sodium (140-148) mmol/L Potassium (3.6-5.2) mmol/L Chloride (100-108) mmol/L Carbon Dioxide (21-32) mmol/L Anion Gap (5.0-14.0) mmol/L BUN (7-18) mg/dL Creatinine (0.8-1.3) mg/dL Est Cr Clr Drug Dosing mL/min Estimated GFR (MDRD) (>60) BUN/Creatinine Ratio Glucose (74-106) mg/dL Lactic Acid (0.4-2.0) mmol/L Calcium (8.5-10.1) mg/dL Total Bilirubin (0.2-1.0) mg/dL AST (15-37) U/L ALT (12-78) U/L Alkaline Phosphatase (46-116) U/L Troponin I < 0.017 (0.000-0.056) ng/mL Total Protein (6.4-8.2) g/dL Albumin (3.4-5.0) g/dL Globulin (2.3-3.5) g/dL Albumin/Globulin Ratio (1.2-2.2) Lipase (73-393) U/L Urine Color (YELLOW) Urine Appearance (CLEAR) Urine pH (5.0-8.0) Ur Specific [place] (1.008-1.030) Urine Protein (NEGATIVE) mg/dL Urine Glucose (UA) (NEGATIVE) mg/dL Urine Ketones (NEGATIVE) mg/dL Urine Occult Blood (NEGATIVE) Urine Nitrite (NEGATIVE) Urine Bilirubin (NEGATIVE) Urine Urobilinogen (0.2-1.0) EU/dL Ur Leukocyte Esterase (NEGATIVE) Urine RBC (0-5) Urine WBC (0-5) Ur Epithelial Cells Amorphous Sediment Urine Bacteria Urine Mucus 09/03/19 09/03/19 09/03/19 Range/Units 13:12 13:12 13:12 WBC (4.5-11.0) K/uL RBC (4.30-5.90) M/uL Hgb (12.0-15.0) g/dL Hct (40.0-54.0) % MCV (80-98) fL MCH (27-31) pg MCHC (32-36) % Plt Count (150-400) K/uL PT (9.5-12.0) sec INR (0.80-1.20) Sodium 134 L (140-148) mmol/L Potassium 4.1 (3.6-5.2) mmol/L Chloride 96 L (100-108) mmol/L Carbon Dioxide 32 (21-32) mmol/L Anion Gap 10.1 (5.0-14.0) mmol/L BUN 16 (7-18) mg/dL Creatinine 1.3 (0.8-1.3) mg/dL Est Cr Clr Drug Dosing 40.19 mL/min Estimated GFR (MDRD) 52 L (>60) BUN/Creatinine Ratio Not Reportable Glucose 143 H (74-106) mg/dL Lactic Acid 1.6 (0.4-2.0) mmol/L Calcium 9.2 (8.5-10.1) mg/dL Total Bilirubin 0.7 D (0.2-1.0) mg/dL AST 19 (15-37) U/L ALT 22 (12-78) U/L Alkaline Phosphatase 76 (46-116) U/L Troponin I (0.000-0.056) ng/mL Total Protein 7.6 (6.4-8.2) g/dL Albumin 3.8 (3.4-5.0) g/dL Globulin 3.8 H (2.3-3.5) g/dL Albumin/Globulin Ratio 1.0 L (1.2-2.2) Lipase 84 (73-393) U/L Urine Color (YELLOW) Urine Appearance (CLEAR) Urine pH (5.0-8.0) Ur Specific [place] (1.008-1.030) Urine Protein (NEGATIVE) mg/dL Urine Glucose (UA) (NEGATIVE) mg/dL Urine Ketones (NEGATIVE) mg/dL Urine Occult Blood (NEGATIVE) Urine Nitrite (NEGATIVE) Urine Bilirubin (NEGATIVE) Urine Urobilinogen (0.2-1.0) EU/dL Ur Leukocyte Esterase (NEGATIVE) Urine RBC (0-5) Urine WBC (0-5) Ur Epithelial Cells Amorphous Sediment Urine Bacteria Urine Mucus 09/03/19 Range/Units 14:57 WBC (4.5-11.0) K/uL RBC (4.30-5.90) M/uL Hgb (12.0-15.0) g/dL Hct (40.0-54.0) % MCV (80-98) fL MCH (27-31) pg MCHC (32-36) % Plt Count (150-400) K/uL PT (9.5-12.0) sec INR (0.80-1.20) Sodium (140-148) mmol/L Potassium (3.6-5.2) mmol/L Chloride (100-108) mmol/L Carbon Dioxide (21-32) mmol/L Anion Gap (5.0-14.0) mmol/L BUN (7-18) mg/dL Creatinine (0.8-1.3) mg/dL Est Cr Clr Drug Dosing mL/min Estimated GFR (MDRD) (>60) BUN/Creatinine Ratio Glucose (74-106) mg/dL Lactic Acid (0.4-2.0) mmol/L Calcium (8.5-10.1) mg/dL Total Bilirubin (0.2-1.0) mg/dL AST (15-37) U/L ALT (12-78) U/L Alkaline Phosphatase (46-116) U/L Troponin I (0.000-0.056) ng/mL Total Protein (6.4-8.2) g/dL Albumin (3.4-5.0) g/dL Globulin (2.3-3.5) g/dL Albumin/Globulin Ratio (1.2-2.2) Lipase (73-393) U/L Urine Color Yellow (YELLOW) Urine Appearance Clear (CLEAR) Urine pH 7.5 (5.0-8.0) Ur Specific [place] 1.015 (1.008-1.030) Urine Protein Negative (NEGATIVE) mg/dL Urine Glucose (UA) Negative (NEGATIVE) mg/dL Urine Ketones Negative (NEGATIVE) mg/dL Urine Occult Blood Trace-lysed H (NEGATIVE) Urine Nitrite Negative (NEGATIVE) Urine Bilirubin Negative (NEGATIVE) Urine Urobilinogen 0.2 (0.2-1.0) EU/dL Ur Leukocyte Esterase Negative (NEGATIVE) Urine RBC 0-5 (0-5) Urine WBC 0-5 (0-5) Ur Epithelial Cells Rare Amorphous Sediment Not seen Urine Bacteria Rare Urine Mucus Not seen Result Diagrams: 09/03/19 13:12 09/03/19 13:12 Sepsis Event Note - Evaluation Sepsis Screening Result: No Definite Risk - Focused Exam Vital Signs: Vital Signs Temp Pulse Resp BP Pulse Ox 09/03/19 15:35 65 123/51 L 99 09/03/19 15:12 60 143/65 H 09/03/19 12:48 98.1 F 59 L 14 125/47 L 99 09/03/19 12:36 98.1 F 59 L 14 125/47 L 99 Date Exam was Performed: 09/03/19 Time Exam was Performed: 17:43 *Q Meaningful Use (ADM) - VTE Risk Assess *Q Each Risk Factor Represents 1 Point: None Total Score 1 Point Risk Factors: 0 Each Risk Factor Represents 2 Points: None Total Score 2 Point Risk Factors: 0 Each Risk Factor Represents 3 Points: Age 75 Years or Greater Total Score 3 Point Risk Factors: 3 Each Risk Factor Represents 5 Points: None Total Score 5 Point Risk Factors: 0 Venous Thromboembolism Risk Factor Score *Q: 3 Problem List Initiated/Reviewed/Updated: Yes Orders Last 24hrs: Active Orders 24 hr Category Date Time Status Patient Status Manage Transfer [TRANSFER] Routine ADT 09/03/19 16:49 Ordered EKG Documentation Completion [RC] ASDIRECTED Care 09/03/19 13:00 Active Overnight Pulse Oximetry [RC] Click to Edit Care 09/03/19 13:28 Active Sodium Chloride 0.9% [Normal Saline] 1,000 ml Med 09/03/19 13:15 Active IV ASDIRECTED Sodium Chloride 0.9% [Normal Saline] 76 ml Med 09/03/19 13:15 Active IV ASDIRECTED Nasogastric Orogastric Tube Insertion [OM.PC] Routine Oth 09/03/19 15:43 Ordered Pulse Oximetry Continuous Monitoring [OM.PC] Routine Oth 09/03/19 13:27 Ordered Resuscitation Status Routine Resus Stat 09/03/19 16:52 Ordered EKG 12 Lead [EK] Urgent Ther 09/03/19 12:58 Ordered Medication Orders Sodium Chloride (Normal Saline) 1,000 mls @ 500 mls/hr IV ASDIRECTED [facility] Last Admin: 09/03/19 13:24 Dose: 500 mls/hr Documented by: PREILOR Sodium Chloride (Normal Saline) 76 mls @ 3.3 mls/sec IV ASDIRECTED [facility] Last Admin: 09/03/19 13:44 Dose: 3.3 mls/sec Documented by: DECRMIC Assessment/Plan Comment:: ASSESSMENT AND PLAN SMALL BOWEL OBSTRUCTION-set of pain this morning associated with nausea, CT scan shows evidence of small bowel obstruction. History of several previous abdominal surgeries. -N.p.o. -NG tube to low intermittent suction -IV fluids for hydration -Pain and nausea medication as needed -Dr. Cid to see for surgical consult in a.m. -Follow-up abdominal flatplate and upright x-ray in a.m. HISTORY OF CORONARY ARTERY DISEASE-status post previous coronary artery bypass surgery as well as angioplasties with stenting. Currently asymptomatic denies recent symptoms of chest pain or pressure. -Continue outpatient medications MAINTENANCE ISSUES -DVT prophylaxis; SCUDs, hold on anticoagulation because of possible surgery -GI prophylaxis; not indicated -James catheter; not indicated -Nutrition; n.p.o. -Nicotine dependence; not required CODE STATUS-FULL CODE ADMISSION STATUS-patient will be admitted to inpatient status, expect at least a 2 night hospital stay for evaluation and management of problems as outlined above. At the time of this admission I do not reasonably expected evaluation and management of this problem will require more than a 96 hour hospital stay. DISPOSITION-anticipate discharge to home after the hospital stay. - Mortality Measure Prognosis:: Good
[2019-09-03] MEDS ORDERED: Sodium Chloride 0.9% 10 ML Syringe FLUSH PRN (17:05)
[2019-09-03] MEDS ORDERED: Ondansetron 4 MG/2 ML SDV IV PRN (17:05)
[2019-09-03] MEDS: Lactated Ringers 1,000 ML IV SCH (17:55)
[2019-09-03] MEDS ORDERED: Non-Formulary Medication 1 Each (Lisinopril/Hydrochlorothiazide [Lisinopril-Hctz 20-12.5 M PO SCH (21:00)
[2019-09-03] MEDS: Hydrochlorothiazide 12.5 MG Cap PO SCH (21:45)
[2019-09-03] MEDS: Lisinopril 20 MG Tab PO SCH (21:45)
[2019-09-03] MEDS: DILTIAZEM 90 MG PO SCH (21:46)
[2019-09-03] MEDS: HYDROmorphone 0.5 MG/0.5 ML Syringe IVPUSH PRN (21:54)
[2019-09-04] MEDS: Lactated Ringers 1,000 ML IV SCH ×2 (01:23→09:37)
[2019-09-04] MEDS ORDERED: Tamsulosin 0.4 MG Cap.ER PO ONE (08:00)
--- NOTE | 2019-09-04 08:37 | PCM.CONS ---
H&P History of Present Illness - General Date of Service: 09/04/19 Admit Problem/Dx: Admission Diagnosis/Problem Admission Diagnosis/Problem Partial Small Bowel Obstruction Source of Information: Patient History Limitations: Reports: No Limitations - History of Present Illness Onset of Symptoms: Reports: Gradual Location: Reports: Abdomen Quality: Reports: Ache Severity: Mild Improves with: Reports: None Worsens with: Reports: None Associated Symptoms: Reports: Nausea/Vomiting Other HPI/Comments: Vishnu reports that he had severe abdominal pain yesterday and went to the ED by ambulance. He states he has had problems with his stomach for years but isn't really specific on his symptoms. Reports yesterday severe abdominal pain and nausea. Abdomen Pain Score (Numeric/FACES): 5 - Related Data Allergies/Adverse Reactions: Allergies Allergy/AdvReac Type Severity Reaction Status Date / Time No Known Allergies Allergy Verified 06/23/15 16:51 Home Medications: Home Meds Aspirin 325 mg PO DAILY 08/10/13 [History] Lisinopril/Hydrochlorothiazide [Lisinopril-Hctz 20-12.5 mg Tab] 1 each PO BID 08/10/13 [History] Metoprolol Succinate [Toprol XL 50mg] 1 tab PO DAILY 08/10/13 [History] Nitroglycerin 0.4 mg SL ASDIRECTED PRN 08/10/13 [History] dilTIAZem HCL [Diltiazem 12Hr ER] 90 mg PO BID 08/10/13 [History] Hydrocodone/Acetaminophen [Hydrocodon-Acetaminophn 10-325] 2 tab PO Q8H PRN 01/02/19 [History] LORazepam 0.5 mg PO Q8H PRN 01/02/19 [History] Past Medical History HEENT History: Reports: Impaired Vision Cardiovascular History: Reports: Bypass, CAD, Hypertension, Stents Gastrointestinal History: Reports: Diverticulosis, GERD Genitourinary History: Reports: Prostate Disorder Musculoskeletal History: Reports: Arthritis, Back Pain, Chronic Other Oncologic History: skin Other Dermatologic History: skin cancer - Infectious Disease History Infectious Disease History: Reports: Chicken Pox, Measles, Mumps - Past Surgical History Cardiovascular Surgical History: Reports: Valve Replacement, Other (See Below) GI Surgical History: Reports: Appendectomy, Cholecystectomy, Colonoscopy, EGD, Hernia Repair/Other Male Surgical History: Reports: None Social & Family History - Family History Cardiac: Reports: CAD, [place] : Reports: Renal Disease/Insufficiency Oncologic: Reports: Brain - Tobacco Use Smoking Status *Q: Former Smoker Years of Tobacco use: 10 Used Tobacco, but Quit: Yes Month/Year Tobacco Last Used: 61 years ago Second Hand Smoke Exposure: No - Caffeine Use Caffeine Use: Reports: Coffee Caffeine Use Comment: rarely - Recreational Drug Use Recreational Drug Use: No H&P Review of Systems - Review of Systems: Review Of Systems: Comprehensive ROS is negative, except as noted in HPI. Exam - Exam Exam: See Below - Vital Signs Vital Signs: Last Vital Signs Temp 97.5 F 09/04/19 05:00 Pulse 64 09/04/19 05:00 Resp 18 09/04/19 05:00 BP 151/57 H 09/04/19 05:00 Pulse Ox 100 09/04/19 05:00 Weight: 123 lb 9.6 oz - Exam General: Alert, Oriented HEENT: PERRLA Neck: Supple Lungs: Clear to Auscultation, Normal Respiratory Effort Cardiovascular: Regular Rate, Regular Rhythm GI/Abdominal Exam: Normal Bowel Sounds, Soft, Distended (Male) Exam: Deferred Rectal (Males) Exam: Deferred Back Exam: Normal Inspection, Full Range of Motion Extremities: Normal Inspection, Normal Range of Motion Skin: Warm, Dry, Intact Neurological: Cranial Nerves Intact, Reflexes Equal Bilateral Neuro Extensive - Mental Status: Alert, Oriented x3, Normal Mood/Affect Neuro Extensive - Motor, Sensory, Reflexes: CN II-XII Intact, Normal Gait Psychiatric: Alert, Normal Affect, Normal Mood - Patient Data Lab Results Last 24 hrs: Laboratory Results - last 24 hr 09/03/19 09/03/19 09/03/19 Range/Units 13:12 13:12 13:12 WBC 6.4 (4.5-11.0) K/uL RBC 3.85 L (4.30-5.90) M/uL Hgb 11.0 L (12.0-15.0) g/dL Hct 34.7 L (40.0-54.0) % MCV 90 (80-98) fL MCH 29 (27-31) pg MCHC 32 (32-36) % Plt Count 249 (150-400) K/uL Neut % (Auto) (36-66) % Lymph % (Auto) (24-44) % [place] % (Auto) (2-6) % Eos % (Auto) (2-4) % Baso % (Auto) (0-1) % PT 11.2 (9.5-12.0) sec INR 1.04 (0.80-1.20) Sodium (140-148) mmol/L Potassium (3.6-5.2) mmol/L Chloride (100-108) mmol/L Carbon Dioxide (21-32) mmol/L Anion Gap (5.0-14.0) mmol/L BUN (7-18) mg/dL Creatinine (0.8-1.3) mg/dL Est Cr Clr Drug Dosing mL/min Estimated GFR (MDRD) (>60) BUN/Creatinine Ratio Glucose (74-106) mg/dL Lactic Acid (0.4-2.0) mmol/L Calcium (8.5-10.1) mg/dL Magnesium (1.8-2.4) mg/dL Total Bilirubin (0.2-1.0) mg/dL AST (15-37) U/L ALT (12-78) U/L Alkaline Phosphatase (46-116) U/L Troponin I < 0.017 (0.000-0.056) ng/mL Total Protein (6.4-8.2) g/dL Albumin (3.4-5.0) g/dL Globulin (2.3-3.5) g/dL Albumin/Globulin Ratio (1.2-2.2) Lipase (73-393) U/L Urine Color (YELLOW) Urine Appearance (CLEAR) Urine pH (5.0-8.0) Ur Specific [place] (1.008-1.030) Urine Protein (NEGATIVE) mg/dL Urine Glucose (UA) (NEGATIVE) mg/dL Urine Ketones (NEGATIVE) mg/dL Urine Occult Blood (NEGATIVE) Urine Nitrite (NEGATIVE) Urine Bilirubin (NEGATIVE) Urine Urobilinogen (0.2-1.0) EU/dL Ur Leukocyte Esterase (NEGATIVE) Urine RBC (0-5) Urine WBC (0-5) Ur Epithelial Cells Amorphous Sediment Urine Bacteria Urine Mucus 09/03/19 09/03/19 09/03/19 Range/Units 13:12 13:12 13:12 WBC (4.5-11.0) K/uL RBC (4.30-5.90) M/uL Hgb (12.0-15.0) g/dL Hct (40.0-54.0) % MCV (80-98) fL MCH (27-31) pg MCHC (32-36) % Plt Count (150-400) K/uL Neut % (Auto) (36-66) % Lymph % (Auto) (24-44) % [place] % (Auto) (2-6) % Eos % (Auto) (2-4) % Baso % (Auto) (0-1) % PT (9.5-12.0) sec INR (0.80-1.20) Sodium 134 L (140-148) mmol/L Potassium 4.1 (3.6-5.2) mmol/L Chloride 96 L (100-108) mmol/L Carbon Dioxide 32 (21-32) mmol/L Anion Gap 10.1 (5.0-14.0) mmol/L BUN 16 (7-18) mg/dL Creatinine 1.3 (0.8-1.3) mg/dL Est Cr Clr Drug Dosing 40.19 mL/min Estimated GFR (MDRD) 52 L (>60) BUN/Creatinine Ratio Not Reportable Glucose 143 H (74-106) mg/dL Lactic Acid 1.6 (0.4-2.0) mmol/L Calcium 9.2 (8.5-10.1) mg/dL Magnesium (1.8-2.4) mg/dL Total Bilirubin 0.7 D (0.2-1.0) mg/dL AST 19 (15-37) U/L ALT 22 (12-78) U/L Alkaline Phosphatase 76 (46-116) U/L Troponin I (0.000-0.056) ng/mL Total Protein 7.6 (6.4-8.2) g/dL Albumin 3.8 (3.4-5.0) g/dL Globulin 3.8 H (2.3-3.5) g/dL Albumin/Globulin Ratio 1.0 L (1.2-2.2) Lipase 84 (73-393) U/L Urine Color (YELLOW) Urine Appearance (CLEAR) Urine pH (5.0-8.0) Ur Specific [place] (1.008-1.030) Urine Protein (NEGATIVE) mg/dL Urine Glucose (UA) (NEGATIVE) mg/dL Urine Ketones (NEGATIVE) mg/dL Urine Occult Blood (NEGATIVE) Urine Nitrite (NEGATIVE) Urine Bilirubin (NEGATIVE) Urine Urobilinogen (0.2-1.0) EU/dL Ur Leukocyte Esterase (NEGATIVE) Urine RBC (0-5) Urine WBC (0-5) Ur Epithelial Cells Amorphous Sediment Urine Bacteria Urine Mucus 09/03/19 09/04/19 09/04/19 Range/Units 14:57 05:24 05:24 WBC 5.9 (4.5-11.0) K/uL RBC 3.72 L (4.30-5.90) M/uL Hgb 10.9 L (12.0-15.0) g/dL Hct 33.5 L (40.0-54.0) % MCV 90 (80-98) fL MCH 29 (27-31) pg MCHC 33 (32-36) % Plt Count 245 (150-400) K/uL Neut % (Auto) 66 (36-66) % Lymph % (Auto) 21 L (24-44) % [place] % (Auto) 12 H (2-6) % Eos % (Auto) 1 L (2-4) % Baso % (Auto) 0 (0-1) % PT (9.5-12.0) sec INR (0.80-1.20) Sodium 134 L (140-148) mmol/L Potassium 3.6 (3.6-5.2) mmol/L Chloride 100 (100-108) mmol/L Carbon Dioxide 31 (21-32) mmol/L Anion Gap 6.6 (5.0-14.0) mmol/L BUN 11 (7-18) mg/dL Creatinine 1.2 (0.8-1.3) mg/dL Est Cr Clr Drug Dosing 35.69 mL/min Estimated GFR (MDRD) 58 L (>60) BUN/Creatinine Ratio Glucose 116 H (74-106) mg/dL Lactic Acid (0.4-2.0) mmol/L Calcium 8.8 (8.5-10.1) mg/dL Magnesium 1.7 L (1.8-2.4) mg/dL Total Bilirubin (0.2-1.0) mg/dL AST (15-37) U/L ALT (12-78) U/L Alkaline Phosphatase (46-116) U/L Troponin I (0.000-0.056) ng/mL Total Protein (6.4-8.2) g/dL Albumin (3.4-5.0) g/dL Globulin (2.3-3.5) g/dL Albumin/Globulin Ratio (1.2-2.2) Lipase (73-393) U/L Urine Color Yellow (YELLOW) Urine Appearance Clear (CLEAR) Urine pH 7.5 (5.0-8.0) Ur Specific [place] 1.015 (1.008-1.030) Urine Protein Negative (NEGATIVE) mg/dL Urine Glucose (UA) Negative (NEGATIVE) mg/dL Urine Ketones Negative (NEGATIVE) mg/dL Urine Occult Blood Trace-lysed H (NEGATIVE) Urine Nitrite Negative (NEGATIVE) Urine Bilirubin Negative (NEGATIVE) Urine Urobilinogen 0.2 (0.2-1.0) EU/dL Ur Leukocyte Esterase Negative (NEGATIVE) Urine RBC 0-5 (0-5) Urine WBC 0-5 (0-5) Ur Epithelial Cells Rare Amorphous Sediment Not seen Urine Bacteria Rare Urine Mucus Not seen Result Diagrams: 09/04/19 05:24 09/04/19 05:24 Sepsis Event Note - Evaluation Sepsis Screening Result: No Definite Risk - Focused Exam Vital Signs: Vital Signs Temp Pulse Resp BP BP Pulse Ox 09/04/19 05:00 97.5 F 64 18 151/57 H 100 09/03/19 23:09 98.7 F 65 16 146/61 H 98 09/03/19 21:45 156/61 H Date Exam was Performed: 09/04/19 Time Exam was Performed: 08:40 Consult PN Assessment/Plan Procedures: Procedures ASSAY OF CK (CPK) (06/23/15) ASSAY OF LIPASE (01/02/19) ASSAY OF TROPONIN QUANT (01/02/19) CHEST X-RAY 1 VIEW FRONTAL (03/10/16) COMPLETE CBC AUTOMATED (01/02/19) COMPLETE CBC W/AUTO DIFF WBC (01/02/19) COMPREHEN METABOLIC PANEL (01/02/19) CT ABD & PELVIS W/O CONTRAST (01/02/19) ELECTROCARDIOGRAM REPORT (01/02/19) ELECTROCARDIOGRAM TRACING (01/02/19) EMERGENCY DEPT VISIT (01/02/19) EMERGENCY DEPT VISIT (01/02/19) EMERGENCY DEPT VISIT (03/10/16) EMERGENCY DEPT VISIT (03/10/16) EMERGENCY DEPT VISIT (08/10/13) EMERGENCY DEPT VISIT (08/10/13) EXTREMITY STUDY (09/27/18) HYDRATE IV INFUSION ADD-ON (01/02/19) IIV NO PRSV INCREASED AG IM (01/02/19) INFLUENZA ASSAY W/OPTIC (01/02/19) INITIAL OBSERVATION CARE (01/02/19) INSERT TEMP BLADDER CATH (01/02/19) METABOLIC PANEL TOTAL CA (01/02/19) OBSERVATION CARE DISCHARGE (01/02/19) ROUTINE VENIPUNCTURE (01/02/19) SUBSEQUENT OBSERVATION CARE (01/02/19) THER/PROPH/DIAG INJ IV PUSH (01/02/19) TTE W/DOPPLER COMPLETE (02/28/13) TX/PRO/DX INJ NEW DRUG ADDON (01/02/19) URINALYSIS AUTO W/SCOPE (01/02/19) X-RAY EXAM CHEST 2 VIEWS (01/02/19) X-RAY EXAM OF ABDOMEN (06/23/15) (1) Small bowel obstruction SNOMED Code(s): 285557904 Code(s): K56.609 - UNSP INTESTNL OBST, UNSP TO PARTIAL VERSUS COMPLETE OBST Current Visit: Yes Problem List Initiated/Reviewed/Updated: Yes My Orders Last 24 Hours: My Active Orders 09/04/19 07:39 Bladder Scan [RC] ASDIRECTED 09/04/19 09:00 bisacodyL [Dulcolax] 10 mg RECTAL BID 09/04/19 10:00 Magnesium Sulfate/Water [Magnesium Sulfate in Water Premix] 2 gm Premix Bag 1 bag IV Q6H 09/04/19 21:00 Tamsulosin [Flomax] 0.4 mg PO BEDTIME 09/05/19 04:00 Abdomen 2V AP Flat Upright [CR] DAILY 09/06/19 04:00 Abdomen 2V AP Flat Upright [CR] DAILY 09/07/19 04:00 Abdomen 2V AP Flat Upright [CR] DAILY
[2019-09-04] MEDS: DILTIAZEM 90 MG PO SCH ×2 (10:16→21:23)
[2019-09-04] MEDS: Hydrochlorothiazide 12.5 MG Cap PO SCH ×2 (10:16→21:26)
[2019-09-04] MEDS: Bisacodyl 10 MG Supp RECTAL SCH ×2 (10:16→21:24)
[2019-09-04] MEDS: Aspirin 325 MG Tab.EC PO SCH (10:16)
[2019-09-04] MEDS: Metoprolol Succinate 50 MG Tab.ER PO SCH (10:17)
[2019-09-04] MEDS: Magnesium Sulfate/Water 2 GM in Premix Bag 1 BAG IV SCH ×3 (10:21→21:26)
[2019-09-04] MEDS: Lisinopril 20 MG Tab PO SCH ×2 (10:21→21:24)
[2019-09-04] MEDS ORDERED: Lidocaine 2% Jelly 10 ML Urojet MUCMEM ONE (10:32)
--- NOTE | 2019-09-04 10:58 | CR ---
Abdomen 2V AP Upright Decub CLINICAL HISTORY: SBO FINDINGS: Flat and upright views the abdomen show moderate gaseous distention of small bowel with a few scattered air-fluid levels. There is gas and feces colon. There is some gastric distention. IMPRESSION: Persistent small bowel and now gastric distention. Overall appearance is similar to prior study if not slightly improved with more air in the colon.
[2019-09-04] MEDS: HYDROmorphone 0.5 MG/0.5 ML Syringe IVPUSH PRN (14:36)
--- NOTE | 2019-09-04 15:23 | PCM.PN ---
- General Info Date of Service: 09/04/19 Subjective Update: Mr. Medina has improved since admission, no further abdominal pain or nausea. NG tube has been removed, he has been passing gas and has had a few bowel movements this afternoon. Functional Status: Reports: Ambulating, Urinating - Review of Systems General: Reports: No Symptoms Pulmonary: Reports: No Symptoms Cardiovascular: Reports: No Symptoms Gastrointestinal: Reports: No Symptoms - Patient Data Vitals - Most Recent: Last Vital Signs Temp 97.2 F 09/04/19 13:00 Pulse 70 09/04/19 13:00 Resp 16 09/04/19 13:00 BP 132/60 09/04/19 13:00 Pulse Ox 100 09/04/19 13:00 Weight - Most Recent: 123 lb I&O - Last 24 Hours: Intake & Output 09/04/19 09/04/19 09/04/19 06:59 14:59 22:59 Intake Total 1436 50 Output Total 900 2150 Balance 536 -2100 Lab Results Last 24 Hours: Laboratory Results - last 24 hr 09/04/19 09/04/19 Range/Units 05:24 05:24 WBC 5.9 (4.5-11.0) K/uL RBC 3.72 L (4.30-5.90) M/uL Hgb 10.9 L (12.0-15.0) g/dL Hct 33.5 L (40.0-54.0) % MCV 90 (80-98) fL MCH 29 (27-31) pg MCHC 33 (32-36) % Plt Count 245 (150-400) K/uL Neut % (Auto) 66 (36-66) % Lymph % (Auto) 21 L (24-44) % Fisher % (Auto) 12 H (2-6) % Eos % (Auto) 1 L (2-4) % Baso % (Auto) 0 (0-1) % Sodium 134 L (140-148) mmol/L Potassium 3.6 (3.6-5.2) mmol/L Chloride 100 (100-108) mmol/L Carbon Dioxide 31 (21-32) mmol/L Anion Gap 6.6 (5.0-14.0) mmol/L BUN 11 (7-18) mg/dL Creatinine 1.2 (0.8-1.3) mg/dL Est Cr Clr Drug Dosing 35.69 mL/min Estimated GFR (MDRD) 58 L (>60) Glucose 116 H (74-106) mg/dL Calcium 8.8 (8.5-10.1) mg/dL Magnesium 1.7 L (1.8-2.4) mg/dL Med Orders - Current: Current Medications Aspirin (Ecotrin) 325 mg PO DAILY [facility] Last Admin: 09/04/19 10:16 Dose: 325 mg Documented by: Bisacodyl (Dulcolax) 10 mg RECTAL BID [facility] Last Admin: 09/04/19 10:16 Dose: 10 mg Documented by: Hydrochlorothiazide (Hydrochlorothiazide) 12.5 mg PO BID [facility] Last Admin: 09/04/19 10:16 Dose: 12.5 mg Documented by: Hydromorphone HCl (Dilaudid) 0.5 mg IVPUSH Q1H PRN PRN Reason: Pain Last Admin: 09/04/19 14:36 Dose: 0.5 mg Documented by: Magnesium Sulfate 2 gm/ Premix 50 mls @ 25 mls/hr IV Q6H [facility] Stop: 09/07/19 05:59 Last Admin: 09/04/19 10:21 Dose: 25 mls/hr Documented by: Lisinopril (Prinivil) 20 mg PO BID [facility] Last Admin: 09/04/19 10:21 Dose: 20 mg Documented by: Lorazepam (Ativan) 0.5 mg PO Q4H PRN PRN Reason: Anxiety Metoprolol Succinate (Toprol Xl) 50 mg PO DAILY [facility] Last Admin: 09/04/19 10:17 Dose: 50 mg Documented by: Diltiazem 12hr Er 90 (Mg Ptom) 0 mg PO BID [facility] Last Admin: 09/04/19 10:16 Dose: 90 mg Documented by: Ondansetron HCl (Zofran) 4 mg IV Q4H PRN PRN Reason: Nausea/Vomiting Sodium Chloride (Saline Flush) 10 ml FLUSH ASDIRECTED PRN PRN Reason: Keep Vein Open Tamsulosin HCl (Flomax) 0.4 mg PO BEDTIME [facility] Discontinued Medications Hydromorphone HCl (Dilaudid) 0.5 mg IVPUSH ONETIME ONE Stop: 09/03/19 13:03 Last Admin: 09/03/19 13:28 Dose: 0.5 mg Documented by: Hydromorphone HCl (Dilaudid) 0.5 mg IVPUSH ONETIME ONE Stop: 09/03/19 15:44 Last Admin: 09/03/19 16:35 Dose: 0.5 mg Documented by: Sodium Chloride (Normal Saline) 1,000 mls @ 500 mls/hr IV ASDIRECTED [facility] Last Admin: 09/03/19 13:24 Dose: 500 mls/hr Documented by: Sodium Chloride (Normal Saline) 76 mls @ 3.3 mls/sec IV ASDIRECTED [facility] Last Admin: 09/03/19 13:44 Dose: 3.3 mls/sec Documented by: Lactated Ringer's (Ringers, Lactated) 1,000 mls @ 125 mls/hr IV ASDIRECTED [facility] Last Admin: 09/04/19 09:37 Dose: 125 mls/hr Documented by: Iopamidol (Isovue-300 (61%)) 100 ml IV . DIRECTED ONE Stop: 09/03/19 13:14 Last Admin: 09/03/19 13:44 Dose: 100 ml Documented by: Lidocaine HCl (Xylocaine 2% Jelly) 10 ml MUCMEM ONETIME ONE Stop: 09/04/19 10:33 Last Admin: 09/04/19 10:39 Dose: 10 ml Documented by: Ondansetron HCl (Zofran) 4 mg IVPUSH ONETIME ONE Stop: 09/03/19 13:03 Last Admin: 09/03/19 13:26 Dose: 4 mg Documented by: Tamsulosin HCl (Flomax) 0.4 mg PO ONETIME ONE Stop: 09/04/19 08:01 Last Admin: 09/04/19 10:41 Dose: 0.4 mg Documented by: - Exam General: Alert, Oriented, Cooperative, No Acute Distress Lungs: Clear to Auscultation, Normal Respiratory Effort Cardiovascular: Regular Rate, Regular Rhythm, No Murmurs GI/Abdominal Exam: Soft, Non-Tender, No Organomegaly, No Distention Extremities: Non-Tender, No Pedal Edema Sepsis Event Note - Evaluation Sepsis Screening Result: No Definite Risk - Focused Exam Vital Signs: Vital Signs Temp Pulse Pulse Resp BP BP Pulse Ox 09/04/19 13:00 97.2 F 70 16 132/60 100 09/04/19 10:21 135/59 L 09/04/19 10:17 69 135/59 L 09/04/19 09:00 97 F 68 18 135/59 L 100 09/04/19 05:00 97.5 F 64 18 151/57 H 100 Date Exam was Performed: 09/04/19 Time Exam was Performed: 15:18 - Problem List Review Problem List Initiated/Reviewed/Updated: Yes - My Orders Last 24 Hours: My Active Orders 09/03/19 16:52 Resuscitation Status Routine 09/03/19 17:05 HYDROmorphone [Dilaudid] 0.5 mg IVPUSH Q1H PRN Ondansetron [Zofran] 4 mg IV Q4H PRN Sodium Chloride 0.9% [Saline Flush] 10 ml FLUSH ASDIRECTED PRN 09/03/19 17:05 Patient Status [ADT] Routine Ambulate [RC] QID Gastrointestinal Tube Mgmt [RC] ASDIRECTED Height and Weight [RC] 0500 Intake and Output [RC] QSHIFT Notify Provider Consults [RC] ASDIRECTED Notify Provider Vital Signs [RC] ASDIRECTED Oxygen Therapy [RC] PRN Peripheral IV Care [RC] . DIRECTED Up With Assistance [RC] ASDIRECTED Up to Chair [RC] QID Vital Signs [RC] Q4H Consult to Physician [CONS] Routine Peripheral IV Insertion Adult [OM.PC] Routine Sequential Compression Device [OM.PC] Per Unit Routine 09/03/19 21:00 dilTIAZem HCL [Diltiazem 12Hr ER] 0 mg PO BID hydroCHLOROthiazide 12.5 mg PO BID lisinopriL [Prinivil] 20 mg PO BID 09/04/19 09:00 Aspirin [Ecotrin] 325 mg PO DAILY Metoprolol Succinate [Toprol XL] 50 mg PO DAILY 09/04/19 Lunch Full Liquid Diet [DIET] 09/04/19 15:15 LORazepam [Ativan] 0.5 mg PO Q4H PRN 09/04/19 15:17 Convert IV to Saline Lock [OM.PC] Routine - Plan Plan:: ASSESSMENT AND PLAN SMALL BOWEL OBSTRUCTION-improved from admission, NG tube is out. He has been passing gas today and this afternoon has had 2 bowel movements. No abdominal pain or nausea. -Saline lock IV -Pain and nausea medication as needed -Surgical follow-up per Dr. Cid -Full liquid diet -Follow-up abdominal flatplate and upright x-ray in a.m. HISTORY OF CORONARY ARTERY DISEASE-status post previous coronary artery bypass surgery as well as angioplasties with stenting. Currently asymptomatic denies recent symptoms of chest pain or pressure. -Continue outpatient medications MAINTENANCE ISSUES -DVT prophylaxis; SCUDs, hold on anticoagulation because of possible surgery -GI prophylaxis; not indicated -James catheter; not indicated -Nutrition; n.p.o. -Nicotine dependence; not required CODE STATUS-FULL CODE ADMISSION STATUS-patient will be admitted to inpatient status, expect at least a 2 night hospital stay for evaluation and management of problems as outlined above. At the time of this admission I do not reasonably expected evaluation and management of this problem will require more than a 96 hour hospital stay. DISPOSITION-anticipate discharge to home after the hospital stay.
[2019-09-04] MEDS: LORazepam 0.5 MG Tab PO PRN (16:49)
[2019-09-04] MEDS: Tamsulosin 0.4 MG Cap.ER PO SCH (21:24)
[2019-09-05] MEDS: Magnesium Sulfate/Water 2 GM in Premix Bag 1 BAG IV SCH ×4 (04:18→21:12)
--- NOTE | 2019-09-05 09:03 | CR ---
Abdomen 2V AP Flat Upright CLINICAL HISTORY: Partial SBO FINDINGS: There is some decrease in small bowel distention. There is an increase in air passing into the colon. No free air is seen IMPRESSION: Decrease in small bowel distention. There is more air in the right and transverse colon. There is minimal gas and feces in the left colon and rectosigmoid region. No colon cut off sign is identified but this should be followed to exclude some colonic obstruction.
[2019-09-05] MEDS: Hydrochlorothiazide 12.5 MG Cap PO SCH ×2 (09:17→20:14)
[2019-09-05] MEDS: Lisinopril 20 MG Tab PO SCH ×2 (09:18→20:15)
[2019-09-05] MEDS: Aspirin 325 MG Tab.EC PO SCH (09:18)
[2019-09-05] MEDS: Metoprolol Succinate 50 MG Tab.ER PO SCH (09:18)
[2019-09-05] MEDS: DILTIAZEM 90 MG PO SCH ×2 (09:19→20:13)
[2019-09-05] MEDS: Bisacodyl 10 MG Supp RECTAL SCH ×2 (09:34→20:14)
--- NOTE | 2019-09-05 11:46 | PN ---
DATE OF SERVICE: 09/05/2019 SUBJECTIVE: Vishnu started having bowel movements and he has had 6 medium to large. His abdominal flat and upright x-ray this morning showed that the partial small bowel obstruction has resolved. He had 900 post void residual, and he has a James catheter in. This will be referred to Dr. Salcedo in regard to treatment of his urinary retention or inability to completely empty out his bladder. REVIEW OF SYSTEMS: CONSTITUTIONAL: No fever. HEENT: Negative. NECK: Negative. CHEST: No chest pain, shortness of breath, fast or irregular heart beat. LUNGS: No cough. ABDOMEN: No nausea, vomiting. No abdominal pain. Continues to be slightly bloated he states. GENITOURINARY: As above. EXTREMITIES: Negative. SKIN: Without rash. PSYCHIATRIC: Negative. NEUROLOGIC: Negative. Remainder of review of systems negative for any pertinent positives and negatives. OBJECTIVE: GENERAL: Vishnu is a pleasant 83-year-old male. He is alert and orientated. VITAL SIGNS: TPR from 0700 is 98.6; 72; 17; blood pressure 148/53. HEENT: Negative. NECK: Supple. HEART: Regular rate and rhythm. LUNGS: Clear. ABDOMEN: Remains to be soft. It is nontender and slightly bloated. EXTREMITIES: Without peripheral edema. ASSESSMENT: Partial small-bowel obstruction. PLAN: 1. Increase diet to low residue soft GI diet. 2. Dietary consult in regard to dietary instructions. 3. Dr. Salcedo to discharge and evaluate urinary incontinence. 4. We will evaluate p.r.n. or in a.m. Tammi Carbajal PA-C /[id number]
--- NOTE | 2019-09-05 12:57 | PCM.PN ---
- General Info Date of Service: 09/05/19 Subjective Update: Mr. Medina has been stable since yesterday, tolerating a soft diet this morning. He has had several bowel movements with no further evidence of bowel obstruction. James catheter was placed because of urinary tract obstruction and he was started on Flomax. He much prefers to be discharged without the urinary catheter even if it means that he is retaining urine. Functional Status: Reports: Tolerating Diet, Ambulating, Urinating - Review of Systems General: Reports: Weakness. Denies: Fever, Chills Pulmonary: Reports: No Symptoms Cardiovascular: Reports: No Symptoms Gastrointestinal: Reports: No Symptoms - Patient Data Vitals - Most Recent: Last Vital Signs Temp 97.6 F 09/05/19 11:00 Pulse 77 09/05/19 11:00 Resp 16 09/05/19 11:00 BP 136/59 L 09/05/19 11:00 Pulse Ox 100 09/05/19 11:00 Weight - Most Recent: 119 lb 3.2 oz I&O - Last 24 Hours: Intake & Output 09/04/19 09/05/19 09/05/19 22:59 06:59 14:59 Intake Total 240 400 Output Total 325 500 Balance -85 -500 400 Med Orders - Current: Current Medications Aspirin (Ecotrin) 325 mg PO DAILY [facility] Last Admin: 09/05/19 09:18 Dose: 325 mg Documented by: Bisacodyl (Dulcolax) 10 mg RECTAL BID [facility] Last Admin: 09/05/19 09:34 Dose: Not Given Documented by: Hydrochlorothiazide (Hydrochlorothiazide) 12.5 mg PO BID [facility] Last Admin: 09/05/19 09:17 Dose: 12.5 mg Documented by: Magnesium Sulfate 2 gm/ Premix 50 mls @ 25 mls/hr IV Q6H [facility] Stop: 09/07/19 05:59 Last Admin: 09/05/19 09:19 Dose: 25 mls/hr Documented by: Lisinopril (Prinivil) 20 mg PO BID [facility] Last Admin: 09/05/19 09:18 Dose: 20 mg Documented by: Lorazepam (Ativan) 0.5 mg PO Q4H PRN PRN Reason: Anxiety Last Admin: 09/04/19 16:49 Dose: 0.5 mg Documented by: Metoprolol Succinate (Toprol Xl) 50 mg PO DAILY [facility] Last Admin: 09/05/19 09:18 Dose: 50 mg Documented by: Diltiazem 12hr Er 90 (Mg Ptom) 0 mg PO BID [facility] Last Admin: 09/05/19 09:19 Dose: 90 mg Documented by: Ondansetron HCl (Zofran) 4 mg IV Q4H PRN PRN Reason: Nausea/Vomiting Oxycodone HCl (Oxycodone) 5 mg PO Q4H PRN PRN Reason: Pain Sodium Chloride (Saline Flush) 10 ml FLUSH ASDIRECTED PRN PRN Reason: Keep Vein Open Tamsulosin HCl (Flomax) 0.4 mg PO BEDTIME [facility] Last Admin: 09/04/19 21:24 Dose: 0.4 mg Documented by: Discontinued Medications Hydromorphone HCl (Dilaudid) 0.5 mg IVPUSH ONETIME ONE Stop: 09/03/19 13:03 Last Admin: 09/03/19 13:28 Dose: 0.5 mg Documented by: Hydromorphone HCl (Dilaudid) 0.5 mg IVPUSH ONETIME ONE Stop: 09/03/19 15:44 Last Admin: 09/03/19 16:35 Dose: 0.5 mg Documented by: Hydromorphone HCl (Dilaudid) 0.5 mg IVPUSH Q1H PRN PRN Reason: Pain Last Admin: 09/04/19 14:36 Dose: 0.5 mg Documented by: Sodium Chloride (Normal Saline) 1,000 mls @ 500 mls/hr IV ASDIRECTED [facility] Last Admin: 09/03/19 13:24 Dose: 500 mls/hr Documented by: Sodium Chloride (Normal Saline) 76 mls @ 3.3 mls/sec IV ASDIRECTED [facility] Last Admin: 09/03/19 13:44 Dose: 3.3 mls/sec Documented by: Lactated Ringer's (Ringers, Lactated) 1,000 mls @ 125 mls/hr IV ASDIRECTED [facility] Last Admin: 09/04/19 09:37 Dose: 125 mls/hr Documented by: Iopamidol (Isovue-300 (61%)) 100 ml IV . DIRECTED ONE Stop: 09/03/19 13:14 Last Admin: 09/03/19 13:44 Dose: 100 ml Documented by: Lidocaine HCl (Xylocaine 2% Jelly) 10 ml MUCMEM ONETIME ONE Stop: 09/04/19 10:33 Last Admin: 09/04/19 10:39 Dose: 10 ml Documented by: Ondansetron HCl (Zofran) 4 mg IVPUSH ONETIME ONE Stop: 09/03/19 13:03 Last Admin: 09/03/19 13:26 Dose: 4 mg Documented by: Tamsulosin HCl (Flomax) 0.4 mg PO ONETIME ONE Stop: 09/04/19 08:01 Last Admin: 09/04/19 10:41 Dose: 0.4 mg Documented by: - Exam Quality Assessment: DVT Prophylaxis General: Alert, Oriented, Cooperative, Mild Distress Lungs: Clear to Auscultation, Normal Respiratory Effort Cardiovascular: Regular Rate, Regular Rhythm, No Murmurs GI/Abdominal Exam: Soft, Non-Tender, No Organomegaly, No Distention Extremities: Non-Tender, No Pedal Edema, Other (Changes of venous stasis both lo wer extremities) Sepsis Event Note - Evaluation Sepsis Screening Result: No Definite Risk - Focused Exam Vital Signs: Vital Signs Temp Pulse Pulse Resp BP BP Pulse Ox 09/05/19 11:00 97.6 F 77 16 136/59 L 100 09/05/19 09:18 80 148/53 H 09/05/19 07:00 98.6 F 72 17 148/53 H 97 09/05/19 03:10 98.4 F 78 18 124/71 98 Date Exam was Performed: 09/05/19 Time Exam was Performed: 12:54 - Problem List Review Problem List Initiated/Reviewed/Updated: Yes - My Orders Last 24 Hours: My Active Orders 09/04/19 15:15 LORazepam [Ativan] 0.5 mg PO Q4H PRN 09/04/19 15:17 Convert IV to Saline Lock [OM.PC] Routine 09/04/19 15:23 oxyCODONE 5 mg PO Q4H PRN 09/04/19 15:24 Resuscitation Status Routine 09/05/19 12:54 Remove James Catheter [Urinary Catheter Removal] [RC] Per Unit Routine - Plan Plan:: ASSESSMENT AND PLAN SMALL BOWEL OBSTRUCTION-resolved -Pain and nausea medication as needed -Surgical follow-up per Dr. Cid -Soft diet -Follow-up abdominal flatplate and upright x-ray in a.m. HISTORY OF CORONARY ARTERY DISEASE-status post previous coronary artery bypass surgery as well as angioplasties with stenting. Currently asymptomatic denies recent symptoms of chest pain or pressure. -Continue outpatient medications BPH CAUSING BLADDER OUTLET OBSTRUCTION -Remove James catheter -Flomax 0.4 mg p.o. nightly MAINTENANCE ISSUES -DVT prophylaxis; SCUDs, hold on anticoagulation because of possible surgery -GI prophylaxis; not indicated -James catheter; not indicated -Nutrition; n.p.o. -Nicotine dependence; not required CODE STATUS-FULL CODE ADMISSION STATUS-patient will be admitted to inpatient status, expect at least a 2 night hospital stay for evaluation and management of problems as outlined above. At the time of this admission I do not reasonably expected evaluation and management of this problem will require more than a 96 hour hospital stay. DISPOSITION-anticipate discharge to home after the hospital stay.
[2019-09-05] MEDS: oxyCODONE 5 MG Tab PO PRN ×2 (16:16→20:19)
[2019-09-05] MEDS: Tamsulosin 0.4 MG Cap.ER PO SCH (20:14)
[2019-09-05] MEDS: LORazepam 0.5 MG Tab PO PRN (20:19)
[2019-09-06] MEDS: Magnesium Sulfate/Water 2 GM in Premix Bag 1 BAG IV SCH ×2 (03:25→09:08)
[2019-09-06] MEDS: Lisinopril 20 MG Tab PO SCH (09:06)
[2019-09-06] MEDS: Metoprolol Succinate 50 MG Tab.ER PO SCH (09:06)
[2019-09-06] MEDS: Bisacodyl 10 MG Supp RECTAL SCH (09:06)
[2019-09-06] MEDS: DILTIAZEM 90 MG PO SCH (09:07)
[2019-09-06] MEDS: Aspirin 325 MG Tab.EC PO SCH (09:07)
[2019-09-06] MEDS: Hydrochlorothiazide 12.5 MG Cap PO SCH (09:07)
[2019-09-06 09:08] VITALS: BP 130/60; PULSE 70
--- NOTE | 2019-09-06 10:18 | CR ---
Abdomen 2V AP Flat Upright CLINICAL HISTORY: Partial SBO FINDINGS: There is persistent small bowel distention and a few scattered air-fluid levels. There is gas and feces in the colon. Configuration is similar to the prior study. There are atherosclerotic changes in the aorta. IMPRESSION: Persistent small bowel distention similar to prior study
--- NOTE | 2019-09-06 10:42 | PN ---
DATE OF SERVICE: 09/06/2019 SUBJECTIVE: Vishnu states he plans to go home today. His James catheter was removed yesterday. He is urinating without any difficulty. Oral intake was 1180 and urine output total 1100. He is getting protein drinks, supplementing his meals. States he does not eat very much at home. REVIEW OF SYSTEMS: Remainder of review of systems negative for any pertinent positives and negatives. OBJECTIVE: GENERAL: Vishnu Medina is a pleasant 83-year-old male. VITAL SIGNS: TPR at 07:49, 97.4; 65; 16; blood pressure 129/55. HEENT: Negative. NECK: Supple. HEART: Regular rate and rhythm. LUNGS: Clear. ABDOMEN: Soft, nondistended, and nontender. EXTREMITIES: Without peripheral edema. ASSESSMENT: 1. Partial small-bowel obstruction. 2. Urinary retention. PLAN: Continue low residue soft GI diet. Discharge per Ruel Salcedo MD. Tammi Carbajal PA-C /[id number]
--- NOTE | 2019-09-06 11:06 | PCM.DCSUM1 ---
Discharge Summary - Hospital Course Brief History: Mr. Medina is an 83-year-old gentleman who was admitted through the emergency department with abdominal pain and nausea secondary to small bowel obstruction. - Discharge Data Discharge Date: 09/06/19 Discharge Disposition: Home, Self-Care 01 Condition: Fair - Referral to Home Health Primary Care Physician: PCP None - Discharge Diagnosis/Problem(s) (1) Urinary retention SNOMED Code(s): 156181721 ICD Code: R33.9 - RETENTION OF URINE, UNSPECIFIED Status: Acute Current Visit: Yes (2) BPH (benign prostatic hyperplasia) SNOMED Code(s): 490791015 ICD Code: N40.0 - BENIGN PROSTATIC HYPERPLASIA WITHOUT LOWER URINRY TRACT SYMP Status: Acute Current Visit: Yes (3) Small bowel obstruction SNOMED Code(s): 958551143 ICD Code: K56.609 - UNSP INTESTNL OBST, UNSP TO PARTIAL VERSUS COMPLETE OBST Status: Acute Current Visit: Yes (4) CAD (coronary artery disease) SNOMED Code(s): 03178205 ICD Code: I25.10 - ATHSCL HEART DISEASE OF [place] CORONARY ARTERY W/O ANG PCTRS Status: Chronic Current Visit: No - Patient Summary/Data Consults: Consultations 09/03/19 17:05 Consult to Physician [CONS] Routine Consulting Provider: Bonifacio Cid Call Completed to Consulting Physician: Yes Reason for Consult: Small bowel obstruction 09/05/19 07:13 Consult to Contracts Intern [CONS] Routine Comment: Physician Instructions: Quantity: Reason for Consult: instructions low residue diet gambreler Hospital Course: Mr. Lucero is an 83-year-old gentleman who was admitted through the emergency department with abdominal pain and nausea secondary to small bowel obstruction. He did not feel well last night had a large bowel movement and then diarrhea afterwards. After eating this morning he developed acute pain in his upper abdomen described as an intense ache which did not radiate. He noted no other precipitating or relieving factors. Because of the severe pain he was brought into the emergency department by EMS. CT scan shows evidence of small bowel obstruction. NG tube is been placed in the emergency department. On admission NG tube was kept at low intermittent suction and he was given IV fluids for hydration. He was also provided medication for pain and nausea as needed. On the morning after discharge he was seen and evaluated by Dr. Cid for a surgical consult. He had started to pass gas and did have a few bowel movements. NG tube was removed and he was started on a full liquid diet. By the time of discharge he was tolerating a soft low residue diet without significant difficulty. Hospital course was complicated by urinary retention with very high postvoid residuals. Urinary catheter was placed and he was started on Flomax 0.4 mg daily. Urinary catheter was removed on the day prior to discharge as the patient refused discharged home with a catheter. He was able to urinate, but still had high postvoid residuals. He will be discharged home on Flomax 0.4 mg in the evening. Activity will be as tolerated and he will remain on a soft low residue diet. Follow-up appointment will be scheduled with Dr. Orlando within 1 week. - Patient Instructions Diet: GI Soft/Low Residue/Low Fiber Activity: As Tolerated Other/Special Instructions: Please schedule follow-up appointment with Dr. Orlando within 1 week. - Discharge Plan *PRESCRIPTION DRUG MONITORING PROGRAM REVIEWED*: Not Applicable *COPY OF PRESCRIPTION DRUG MONITORING REPORT IN PATIENT JOEL: Not Applicable Prescriptions/Med Rec: Tamsulosin [Flomax] 0.4 mg PO BEDTIME #30 cap.er Home Medications: Home Meds Aspirin 325 mg PO DAILY 08/10/13 [History] Lisinopril/Hydrochlorothiazide [Lisinopril-Hctz 20-12.5 mg Tab] 1 each PO BID 08/10/13 [History] Metoprolol Succinate [Toprol XL 50mg] 1 tab PO DAILY 08/10/13 [History] Nitroglycerin 0.4 mg SL ASDIRECTED PRN 08/10/13 [History] dilTIAZem HCL [Diltiazem 12Hr ER] 90 mg PO BID 08/10/13 [History] Hydrocodone/Acetaminophen [Hydrocodon-Acetaminophn 10-325] 2 tab PO Q8H PRN 01/02/19 [History] LORazepam 0.5 mg PO Q8H PRN 01/02/19 [History] Tamsulosin [Flomax] 0.4 mg PO BEDTIME #30 cap.er 09/06/19 [Rx] Referrals: Marciano Orlando MD [Physician] - 09/12/19 1:30 pm ([facility]) - Discharge Summary/Plan Comment DC Time >30 min.: No - Patient Data Vitals - Most Recent: Last Vital Signs Temp 97.4 F 09/06/19 07:49 Pulse 70 09/06/19 09:06 Resp 16 09/06/19 07:49 BP 130/60 09/06/19 09:06 Pulse Ox 99 09/06/19 07:49 Weight - Most Recent: 118 lb 12.8 oz I&O - Last 24 hours: Intake & Output 09/05/19 09/06/19 09/06/19 22:59 06:59 14:59 Intake Total 580 300 Output Total 550 550 Balance 30 -250 Med Orders - Current: Current Medications Aspirin (Ecotrin) 325 mg PO DAILY [facility] Last Admin: 09/06/19 09:07 Dose: 325 mg Documented by: Bisacodyl (Dulcolax) 10 mg RECTAL BID [facility] Last Admin: 09/06/19 09:06 Dose: Not Given Documented by: Hydrochlorothiazide (Hydrochlorothiazide) 12.5 mg PO BID [facility] Last Admin: 09/06/19 09:07 Dose: 12.5 mg Documented by: Magnesium Sulfate 2 gm/ Premix 50 mls @ 25 mls/hr IV Q6H [facility] Stop: 09/07/19 05:59 Last Admin: 09/06/19 09:08 Dose: Not Given Documented by: Lisinopril (Prinivil) 20 mg PO BID [facility] Last Admin: 09/06/19 09:06 Dose: 20 mg Documented by: Lorazepam (Ativan) 0.5 mg PO Q4H PRN PRN Reason: Anxiety Last Admin: 09/05/19 20:19 Dose: 0.5 mg Documented by: Metoprolol Succinate (Toprol Xl) 50 mg PO DAILY [facility] Last Admin: 09/06/19 09:06 Dose: 50 mg Documented by: Diltiazem 12hr Er 90 (Mg Ptom) 0 mg PO BID [facility] Last Admin: 09/06/19 09:07 Dose: 1 mg Documented by: Ondansetron HCl (Zofran) 4 mg IV Q4H PRN PRN Reason: Nausea/Vomiting Oxycodone HCl (Oxycodone) 5 mg PO Q4H PRN PRN Reason: Pain Last Admin: 09/05/19 20:19 Dose: 5 mg Documented by: Sodium Chloride (Saline Flush) 10 ml FLUSH ASDIRECTED PRN PRN Reason: Keep Vein Open Tamsulosin HCl (Flomax) 0.4 mg PO BEDTIME [facility] Last Admin: 09/05/19 20:14 Dose: 0.4 mg Documented by: Discontinued Medications Hydromorphone HCl (Dilaudid) 0.5 mg IVPUSH ONETIME ONE Stop: 09/03/19 13:03 Last Admin: 09/03/19 13:28 Dose: 0.5 mg Documented by: Hydromorphone HCl (Dilaudid) 0.5 mg IVPUSH ONETIME ONE Stop: 09/03/19 15:44 Last Admin: 09/03/19 16:35 Dose: 0.5 mg Documented by: Hydromorphone HCl (Dilaudid) 0.5 mg IVPUSH Q1H PRN PRN Reason: Pain Last Admin: 09/04/19 14:36 Dose: 0.5 mg Documented by: Sodium Chloride (Normal Saline) 1,000 mls @ 500 mls/hr IV ASDIRECTED [facility] Last Admin: 09/03/19 13:24 Dose: 500 mls/hr Documented by: Sodium Chloride (Normal Saline) 76 mls @ 3.3 mls/sec IV ASDIRECTED [facility] Last Admin: 09/03/19 13:44 Dose: 3.3 mls/sec Documented by: Lactated Ringer's (Ringers, Lactated) 1,000 mls @ 125 mls[facility] Last Admin: 09/04/19 09:37 Dose: 125 mls/hr Documented by: Iopamidol (Isovue-300 (61%)) 100 ml IV . DIRECTED ONE Stop: 09/03/19 13:14 Last Admin: 09/03/19 13:44 Dose: 100 ml Documented by: Lidocaine HCl (Xylocaine 2% Jelly) 10 ml MUCMEM ONETIME ONE Stop: 09/04/19 10:33 Last Admin: 09/04/19 10:39 Dose: 10 ml Documented by: Ondansetron HCl (Zofran) 4 mg IVPUSH ONETIME ONE Stop: 09/03/19 13:03 Last Admin: 09/03/19 13:26 Dose: 4 mg Documented by: Tamsulosin HCl (Flomax) 0.4 mg PO ONETIME ONE Stop: 09/04/19 08:01 Last Admin: 09/04/19 10:41 Dose: 0.4 mg Documented by: - Exam Quality Assessment: Reports: DVT Prophylaxis General: Reports: Alert, Oriented, Cooperative, No Acute Distress Lungs: Reports: Clear to Auscultation, Normal Respiratory Effort, Decreased Breath Sounds Cardiovascular: Reports: Regular Rate, Regular Rhythm, Murmurs GI/Abdominal Exam: Soft, Non-Tender, No Organomegaly, No Distention Extremities: Non-Tender, No Pedal Edema Skin: Reports: Other (Venous stasis both lower extremities)
== END 2019-09-06 11:53 | disposition home or self-care (01) | DRG 389 ==
LOC: JP.ED 12:29 → JP.MS 16:49
PROVIDERS: ADMIT Hospitalist; ATTEND Hospitalist
PROC: 0D9670Z Drainage of Stomach with Drainage Device, Via Natural or Artificial Opening (ICD-10-PCS; principal; 2019-09-03)
DX: K56.609 Unspecified intestinal obstruction, unspecified as to partial versus complete obstruction (principal); I45.10 Unspecified right bundle-branch block; K56.600 Partial intestinal obstruction, unspecified as to cause; N13.8 Other obstructive and reflux uropathy; H54.7 Unspecified visual loss; I25.10 Atherosclerotic heart disease of native coronary artery without angina pectoris; I10 Essential (primary) hypertension; K21.9 Gastro-esophageal reflux disease without esophagitis; M19.90 Unspecified osteoarthritis, unspecified site; K57.90 Diverticulosis of intestine, part unspecified, without perforation or abscess without bleeding; G89.29 Other chronic pain; M54.9 Dorsalgia, unspecified; N42.9 Disorder of prostate, unspecified; N40.1 Benign prostatic hyperplasia with lower urinary tract symptoms; R33.8 Other retention of urine; Z95.2 Presence of prosthetic heart valve; Z79.82 Long term (current) use of aspirin; Z79.899 Other long term (current) drug therapy; Z95.1 Presence of aortocoronary bypass graft; Z95.5 Presence of coronary angioplasty implant and graft; Z90.49 Acquired absence of other specified parts of digestive tract; Z98.890 Other specified postprocedural states; Z85.828 Personal history of other malignant neoplasm of skin; Z87.891 Personal history of nicotine dependence
CPT/HCPCS: 36415; 71046 ×2; 74177 ×2; 80053; 81001; 83605; 83690; 84484; 85027; 85610; 93005; 96361; 96374; 96375; 96376; 99285; J1170 ×2; J2405; J7030; J7050; Q9967; 51702; 51798; 74019; 74019-26; 74021; 74021-26; 80048; 83735; 85025; 93010; A9270-GY; J3475; J7120

== ENCOUNTER 2020-06-18 06:47 | Emergency (ER) | payer MEDICARE, BC ==
[2020-06-18 07:22] VITALS: BP 124/51; PULSE 61
--- NOTE | 2020-06-18 07:50 | EDM.PDOC ---
ED HPI GENERAL MEDICAL PROBLEM - General Chief Complaint: Chest Pain Stated Complaint: ADB PAIN Time Seen by Provider: 06/18/20 07:10 Source of Information: Reports: Patient, EMS History Limitations: Reports: No Limitations - History of Present Illness INITIAL COMMENTS - FREE TEXT/NARRATIVE: 84-year-old male who has a history of coronary artery disease and also bowel obstructions, chronic lower extremity edema presents with abdominal pain for the past 12 hours. He had some loose stools and generalized malaise yesterday afternoon, then developed abdominal cramping and pain last evening. It was very painful overnight, especially in the left lower quadrant. He continued to have a small amount of soft stools. He called the ambulance this morning because it was still bothering him, he was given 2 nitro and some aspirin in route. Was not short of breath, told EMS he was having some chest discomfort but he denies that to us. He is now feeling better, his abdomen still feels "raw" and is mostly across the lower abdomen. He is resting comfortably. Vitals are normal. Onset: Gradual Duration: Hour(s): (Pain is been present for just over 12 hours) Location: Reports: Abdomen (Especially left lower quadrant) Quality: Reports: Ache, Sharp Improves with: Reports: None Worsens with: Reports: None Associated Symptoms: Reports: Chest Pain (Some chest pain was possible, although he denies it at this time), Loss of Appetite, Malaise. Denies: Fever/Chills, Nausea/Vomiting, Shortness of Breath Abdomen Pain Score (Numeric/FACES): 2 - Related Data Allergies Allergy/AdvReac Type Severity Reaction Status Date / Time No Known Allergies Allergy Verified 06/18/20 06:56 Home Meds: Home Meds Aspirin 81 mg PO DAILY 08/10/13 [History] Lisinopril/Hydrochlorothiazide [Lisinopril-Hctz 20-12.5 mg Tab] 1 each PO BID 08/10/13 [History] Metoprolol Succinate [Toprol XL 50mg] 1 tab PO DAILY 08/10/13 [History] Nitroglycerin 0.4 mg SL ASDIRECTED PRN 08/10/13 [History] dilTIAZem HCL [Diltiazem 12Hr ER] 90 mg PO BID 08/10/13 [History] Hydrocodone/Acetaminophen [Hydrocodon-Acetaminophn 10-325] 2 tab PO Q8H PRN 01/02/19 [History] LORazepam 0.5 mg PO Q8H PRN 01/02/19 [History] Tamsulosin [Flomax] 0.4 mg PO BEDTIME #30 cap.er 09/06/19 [Rx] Citalopram [Citalopram HBr] 10 mg PO DAILY 06/18/20 [History] Pantoprazole [ProTONIX] 40 mg PO DAILY 06/18/20 [History] Simvastatin 80 mg PO BEDTIME 06/18/20 [History] Past Medical History HEENT History: Reports: Impaired Vision Cardiovascular History: Reports: Bypass, CAD, Hypertension, Stents Gastrointestinal History: Reports: Diverticulosis, GERD Genitourinary History: Reports: Prostate Disorder Musculoskeletal History: Reports: Arthritis, Back Pain, Chronic Psychiatric History: Reports: Anxiety, Depression Other Oncologic History: skin Other Dermatologic History: skin cancer - Infectious Disease History Infectious Disease History: Reports: Chicken Pox, Measles, Mumps - Past Surgical History Cardiovascular Surgical History: Reports: Valve Replacement, Other (See Below) Other Cardiovascular Surgeries/Procedures: 2 open heart surgeries GI Surgical History: Reports: Appendectomy, Cholecystectomy, Colonoscopy, EGD, Hernia Repair/Other Male Surgical History: Reports: None Social & Family History - Family History Cardiac: Reports: CAD, [place] : Reports: Renal Disease/Insufficiency Oncologic: Reports: Brain - Tobacco Use Tobacco Use Status *Q: Never Tobacco User - Caffeine Use Caffeine Use: Reports: Coffee Caffeine Use Comment: rarely - Recreational Drug Use Recreational Drug Use: No ED ROS GENERAL - Review of Systems Review Of Systems: See Below Constitutional: Reports: Malaise. Denies: Fever, Chills HEENT: Reports: No Symptoms Respiratory: Denies: Shortness of Breath Cardiovascular: Reports: Chest Pain. Denies: Palpitations GI/Abdominal: Reports: Abdominal Pain, Diarrhea. Denies: Vomiting Skin: Reports: Erythema (Chronic erythema of the lower extremities, dry skin) Neurological: Denies: Confusion, Headache Psychiatric: Reports: No Symptoms ED EXAM, GENERAL - Physical Exam Exam: See Below Exam Limited By: No Limitations General Appearance: Alert, No Apparent Distress Head: Atraumatic Respiratory/Chest: Lungs Clear, Other (No chest wall tenderness to palpation) Cardiovascular: Regular Rate, Rhythm, Extra Beats (Occasional ectopic beats are heard) GI/Abdominal: Normal Bowel Sounds, Tender (Does react with tenderness to palpation of the right upper quadrant and left lower quadrant of the abdomen but no guarding or significant rebound tenderness. No significant distention.) Neurological: Alert, Oriented Psychiatric: Flat Affect Skin Exam: Warm, Dry, Other (Chronic vasculitic changes are present in the lower extremities from chronic edema including the erythema and dry scaly skin.) #1 Interpretation EKG Date: 06/18/20 Time: 07:00 Rhythm: NSR P-Wave: Present Comparison: No Change EKG Interpretation Comments: Right bundle branch block and borderline first-degree block are present, EKG is identical to 8 months ago. Course - Vital Signs Last Recorded V/S: Last Vital Signs Temp 97.9 F 06/18/20 06:52 Pulse 61 06/18/20 07:22 Resp 12 06/18/20 07:22 BP 124/51 L 06/18/20 07:22 Pulse Ox 99 06/18/20 07:22 - Orders/Labs/Meds Orders: Active Orders 24 hr Category Date Time Status EKG 12 Lead [EK] Routine Ther 06/18/20 06:48 Ordered Labs: Laboratory Tests 06/18/20 06/18/20 06/18/20 Range/Units 07:09 07:09 07:09 WBC 4.8 (4.5-11.0) K/uL RBC 3.81 L (4.30-5.90) M/uL Hgb 10.9 L (12.0-15.0) g/dL Hct 34.0 L (40.0-54.0) % MCV 89 (80-98) fL MCH 29 (27-31) pg MCHC 32 (32-36) % Plt Count 182 (150-400) K/uL Neut % (Auto) 69 H (36-66) % Lymph % (Auto) 14 L (24-44) % [place] % (Auto) 17 H (2-6) % Eos % (Auto) 0 L (2-4) % Baso % (Auto) 0 (0-1) % PT 11.4 (9.5-12.0) sec INR 1.05 (0.80-1.20) APTT 30.8 (27.0-36.0) sec Sodium 135 L (140-148) mmol/L Potassium 3.8 (3.6-5.2) mmol/L Chloride 98 L (100-108) mmol/L Carbon Dioxide 28 (21-32) mmol/L Anion Gap 12.8 (5.0-14.0) mmol/L BUN 17 D (7-18) mg/dL Creatinine 1.3 (0.8-1.3) mg/dL Est Cr Clr Drug Dosing 34.02 mL/min Estimated GFR (MDRD) 52 L (>60) Glucose 114 H (74-106) mg/dL Lactic Acid (0.4-2.0) mmol/L Calcium 9.2 (8.5-10.1) mg/dL Total Bilirubin 0.7 (0.2-1.0) mg/dL AST 20 (15-37) U/L ALT 16 (12-78) U/L Alkaline Phosphatase 73 (46-116) U/L Troponin I < 0.017 (0.000-0.056) ng/mL Total Protein 7.1 (6.4-8.2) g/dL Albumin 3.7 (3.4-5.0) g/dL Globulin 3.4 (2.3-3.5) g/dL Albumin/Globulin Ratio 1.1 L (1.2-2.2) Lipase (73-393) U/L 06/18/20 06/18/20 Range/Units 07:14 07:14 WBC (4.5-11.0) K/uL RBC (4.30-5.90) M/uL Hgb (12.0-15.0) g/dL Hct (40.0-54.0) % MCV (80-98) fL MCH (27-31) pg MCHC (32-36) % Plt Count (150-400) K/uL Neut % (Auto) (36-66) % Lymph % (Auto) (24-44) % [place] % (Auto) (2-6) % Eos % (Auto) (2-4) % Baso % (Auto) (0-1) % PT (9.5-12.0) sec INR (0.80-1.20) APTT (27.0-36.0) sec Sodium (140-148) mmol/L Potassium (3.6-5.2) mmol/L Chloride (100-108) mmol/L Carbon Dioxide (21-32) mmol/L Anion Gap (5.0-14.0) mmol/L BUN (7-18) mg/dL Creatinine (0.8-1.3) mg/dL Est Cr Clr Drug Dosing mL/min Estimated GFR (MDRD) (>60) Glucose (74-106) mg/dL Lactic Acid 1.1 (0.4-2.0) mmol/L Calcium (8.5-10.1) mg/dL Total Bilirubin (0.2-1.0) mg/dL AST (15-37) U/L ALT (12-78) U/L Alkaline Phosphatase (46-116) U/L Troponin I (0.000-0.056) ng/mL Total Protein (6.4-8.2) g/dL Albumin (3.4-5.0) g/dL Globulin (2.3-3.5) g/dL Albumin/Globulin Ratio (1.2-2.2) Lipase 102 (73-393) U/L - Re-Assessments/Exams Free Text/Narrative Re-Assessment/Exam: 06/18/20 07:51 EKG done on arrival is identical to previous. He has no chest symptoms on arrival, only has abdominal pain. In review of his old records, he has a hist ory of abdominal pain due to small bowel obstructions. CBC, CMP, lipase, lactic acid and troponin were obtained. 06/18/20 08:47 Labs were remarkably normal, patient continued to rest quietly and appeared asymptomatic. Lipase, lactic acid, white count were all normal. Electrolytes normal. CT the abdomen and pelvis without contrast was obtained to rule out evidence of bowel obstruction. 06/18/20 08:50 Impression: Demonstration of multiple dilated gas and fluid-filled loops of central small bowel which could represent developing obstruction. Incidental note of somewhat bulky soft tissue at the gastroesophageal junction which could represent a decompressed stomach, an underlying mass within the gastric lumen is not excluded and further evaluation with oral and IV contrast exam is recommended for improved characterization. 06/18/20 08:58 After being in the emergency room for 2 hours, patient had no emesis or increased pain. CT results are above. These are very similar findings to his last work-up and it resolved with conservative therapy. Patient wants to try to go home, he is going to stick with just clear liquids for the next 24 hours and return if worsening. Departure - Departure Time of Disposition: 10:16 Disposition: Home, Self-Care 01 Clinical Impression: Partial small bowel obstruction Abdominal pain Qualifiers: Abdominal location: lower abdomen, unspecified Qualified Code(s): R10.30 - Lower abdominal pain, unspecified - Discharge Information Instructions: Abdominal Pain, Adult Referrals: PCP,None [Primary Care Provider] - Forms: ED Department Discharge Care Plan Goals: Stick with only liquids for the next 24 hours, then advance diet slowly as tolerated. Return anytime if symptoms are worsening and persistent. You are not having pain from heart problems, this is your abdomen and bowels that are causing your problem and may improve with just liquids. Sepsis Event Note (ED) - Evaluation Sepsis Screening Result: No Definite Risk - Focused Exam Vital Signs: Vital Signs Temp Pulse Resp BP Pulse Ox 06/18/20 07:22 61 12 124/51 L 99 06/18/20 06:52 97.9 F 72 20 132/54 L 97
--- NOTE | 2020-06-18 08:49 | CRLCT ---
Indication: Abdominal pain history of obstruction Technique: Volumetric multidetector CT images of the abdomen and pelvis were without the administration of intravenous contrast. Comparison: CT September 03, 2019 Findings: There is minimal bibasilar atelectasis versus scar. The liver is normal in attenuation without intrahepatic biliary ductal dilatation. There is prior cholecystectomy. There is reservoir dilatation of the intrahepatic and common bile duct. The spleen is normal in attenuation and size. There is a somewhat bulky appearing questionable mass arising from the gastroesophageal junction versus is decompressed stomach. Evaluation of this is limited due to lack of oral or IV contrast. There is marked pancreatic atrophy. The adrenal glands are unremarkable. There is hypertrophic change of the right kidney and atrophy of the left kidney similar to previous exam. There is a moderate amount of stool seen throughout the colon with moderately dilated fluid-filled loops of central small bowel likely representing developing obstruction versus ileus. The appendix is not visualized. There is no significant mesenteric, retroperitoneal, or pelvic sidewall lymph nodes. The aorta is non aneurysmal with scattered atherosclerotic calcifications similar to previous exam. There is marked prostatomegaly and markedly distended appearing bladder with peripheral bladder diverticula similar to previous exam. There is no free fluid or free air. There is mild diastasis of the rectus musculature. Postoperative change of the right groin status post inguinal hernia repair is again seen. The lumbar vertebral body heights are grossly preserved with [id number] degenerative disc disease. Impression: Demonstration of multiple dilated gas and fluid-filled loops of central small bowel which could represent developing obstruction. Incidental note of somewhat bulky soft tissue at the gastroesophageal junction which could represent a decompressed stomach, an underlying mass within the gastric lumen is not excluded and further evaluation with oral and IV contrast exam is recommended for improved characterization. Please note that all CT scans at this facility use dose modulation, iterative reconstruction, and/or weight-based dosing when appropriate to reduce radiation dose to as low as reasonably achievable. Dictated by Everardo Pires MD @ Jun 18 2020 8:26AM Signed by Dr. Everardo Pires @ Jun 18 2020 8:47AM
== END 2020-06-18 10:05 | disposition home or self-care (01) ==
LOC: JP.ED 06:47
DX: K56.600 Partial intestinal obstruction, unspecified as to cause (principal); I25.10 Atherosclerotic heart disease of native coronary artery without angina pectoris; I10 Essential (primary) hypertension; K21.9 Gastro-esophageal reflux disease without esophagitis; Z90.49 Acquired absence of other specified parts of digestive tract; Z79.82 Long term (current) use of aspirin; Z79.899 Other long term (current) drug therapy
CPT/HCPCS: 36415; 74176; 80053; 83605; 83690; 84484; 85025; 85610; 85730; 93005; 99285-25

== ENCOUNTER 2020-06-19 08:03 | Inpatient (IN) | payer MEDICARE, BC ==
--- NOTE | 2020-06-19 08:42 | EDM.PDOC ---
ED HPI GENERAL MEDICAL PROBLEM - General Chief Complaint: Syncope Stated Complaint: MEDICAL Time Seen by Provider: 06/19/20 08:30 Source of Information: Reports: Patient, EMS, Old Records, RN Notes Reviewed History Limitations: Reports: No Limitations - History of Present Illness INITIAL COMMENTS - FREE TEXT/NARRATIVE: 84-year-old gentleman presents emergency department day complaint of syncopal event, he was in the emergency department yesterday he has known history of coronary artery disease as well as bowel obstructions chronic leg edema evaluation yesterday which did include a CT scan blood work EKG demonstrates sinus rhythm no acute process on CT scan no etiology could be found he was complaining of abdominal pain yesterday. Today he states the diarrhea is making him so weak that he passed out at home. On presentation he is found to be in atrial fibrillation on the monitor complains of sore throat he is tachycardic and tachypneic. Abdominal Pain Score (Numeric/FACES): 2 Throat Pain Score (Numeric/FACES): 10 - Related Data Allergies Allergy/AdvReac Type Severity Reaction Status Date / Time No Known Allergies Allergy Verified 06/19/20 08:18 Home Meds: Home Meds Aspirin 81 mg PO DAILY 08/10/13 [History] Lisinopril/Hydrochlorothiazide [Lisinopril-Hctz 20-12.5 mg Tab] 1 each PO BID 08/10/13 [History] Metoprolol Succinate [Toprol XL 50mg] 1 tab PO DAILY 08/10/13 [History] Nitroglycerin 0.4 mg SL ASDIRECTED PRN 08/10/13 [History] dilTIAZem HCL [Diltiazem 12Hr ER] 90 mg PO BID 08/10/13 [History] Hydrocodone/Acetaminophen [Hydrocodon-Acetaminophn 10-325] 2 tab PO Q8H PRN 01/02/19 [History] LORazepam 0.5 mg PO Q8H PRN 01/02/19 [History] Tamsulosin [Flomax] 0.4 mg PO BEDTIME #30 cap.er 09/06/19 [Rx] Citalopram [Citalopram HBr] 10 mg PO DAILY 06/18/20 [History] Pantoprazole [ProTONIX] 40 mg PO DAILY 06/18/20 [History] Simvastatin 80 mg PO BEDTIME 06/18/20 [History] Past Medical History HEENT History: Reports: Impaired Vision Cardiovascular History: Reports: Bypass, CAD, Hypertension, Stents Gastrointestinal History: Reports: Diverticulosis, GERD, Other (See Below) Other Gastrointestinal History: bowel obstruction Genitourinary History: Reports: Prostate Disorder Musculoskeletal History: Reports: Arthritis, Back Pain, Chronic Psychiatric History: Reports: Anxiety, Depression Other Oncologic History: skin Other Dermatologic History: skin cancer - Infectious Disease History Infectious Disease History: Reports: Chicken Pox, Measles, Mumps - Past Surgical History Cardiovascular Surgical History: Reports: Valve Replacement, Other (See Below) Other Cardiovascular Surgeries/Procedures: 2 open heart surgeries GI Surgical History: Reports: Appendectomy, Cholecystectomy, Colonoscopy, EGD, Hernia Repair/Other Male Surgical History: Reports: None Social & Family History - Family History Cardiac: Reports: CAD, [place] : Reports: Renal Disease/Insufficiency Oncologic: Reports: Brain - Tobacco Use Tobacco Use Status *Q: Former Tobacco User Used Tobacco, but Quit: Yes Month/Year Tobacco Last Used: 40 years ago - Caffeine Use Caffeine Use: Reports: Coffee Caffeine Use Comment: rarely - Recreational Drug Use Recreational Drug Use: No ED ROS GENERAL - Review of Systems Review Of Systems: See Below Constitutional: Reports: Weakness HEENT: Reports: Throat Pain, Throat Swelling Respiratory: Reports: Shortness of Breath Cardiovascular: Denies: Chest Pain GI/Abdominal: Reports: No Symptoms ED EXAM, GENERAL - Physical Exam Exam: See Below Exam Limited By: No Limitations General Appearance: Alert, No Apparent Distress Throat/Mouth: Normal Inspection, Normal Lips, Normal Teeth, Normal Gums, Normal Oropharynx, Normal Voice, No Airway Compromise Neck: Normal Inspection, Supple, Non-Tender, Full Range of Motion Respiratory/Chest: No Respiratory Distress, Lungs Clear, Normal Breath Sounds, No Accessory Muscle Use, Chest Non-Tender Cardiovascular: Systolic Murmur, Irregularly Irregular GI/Abdominal: Normal Bowel Sounds, Soft, Non-Tender Course - Vital Signs Last Recorded V/S: Last Vital Signs Temp 98.3 F 06/19/20 08:09 Pulse 123 H 06/19/20 11:14 Resp 25 H 06/19/20 11:14 BP 137/78 06/19/20 11:14 Pulse Ox 95 06/19/20 11:14 - Orders/Labs/Meds Orders: Active Orders 24 hr Category Date Time Status EKG Documentation Completion [RC] ASDIRECTED Care 06/19/20 08:39 Active Diltiazem 100 MG in Normal Saline Adv @ 5 MG/HR(100ml) Med 06/19/20 11:30 Ordered Diltiazem [Cardizem] 100 mg Sodium Chloride 0.9% [Normal Saline] 100 ml IV TITRATE EKG 12 Lead [EK] Stat Ther 06/19/20 08:39 Ordered Medication Orders Diltiazem HCl 100 mg/ Sodium (Chloride) 100 mls @ 5 mls/hr IV TITRATE CLARA; Protocol Labs: Laboratory Tests 06/19/20 06/19/20 06/19/20 Range/Units 08:55 08:55 08:55 WBC 7.1 (4.5-11.0) K/uL RBC 4.34 (4.30-5.90) M/uL Hgb 12.6 (12.0-15.0) g/dL Hct 37.7 L (40.0-54.0) % MCV 87 (80-98) fL MCH 29 (27-31) pg MCHC 33 (32-36) % Plt Count 171 (150-400) K/uL Neut % (Auto) 81 H (36-66) % Lymph % (Auto) 8 L (24-44) % [place] % (Auto) 11 H (2-6) % Eos % (Auto) 0 L (2-4) % Baso % (Auto) 0 (0-1) % D-Dimer, Quantitative 955.96 H (0.0-500.0) ng/mL Sodium 133 L (140-148) mmol/L Potassium 3.7 (3.6-5.2) mmol/L Chloride 94 L (100-108) mmol/L Carbon Dioxide 26 (21-32) mmol/L Anion Gap 16.7 H (5.0-14.0) mmol/L BUN 19 H (7-18) mg/dL Creatinine 1.3 (0.8-1.3) mg/dL Est Cr Clr Drug Dosing 39.25 mL/min Estimated GFR (MDRD) 52 L (>60) Glucose 127 H (74-106) mg/dL Lactic Acid (0.4-2.0) mmol/L Calcium 9.3 (8.5-10.1) mg/dL Total Bilirubin 0.8 (0.2-1.0) mg/dL AST 27 (15-37) U/L ALT 20 (12-78) U/L Alkaline Phosphatase 74 (46-116) U/L Troponin I (0.000-0.056) ng/mL Total Protein 7.6 (6.4-8.2) g/dL Albumin 3.8 (3.4-5.0) g/dL Globulin 3.8 H (2.3-3.5) g/dL Albumin/Globulin Ratio 1.0 L (1.2-2.2) 06/19/20 06/19/20 Range/Units 08:55 08:55 WBC (4.5-11.0) K/uL RBC (4.30-5.90) M/uL Hgb (12.0-15.0) g/dL Hct (40.0-54.0) % MCV (80-98) fL MCH (27-31) pg MCHC (32-36) % Plt Count (150-400) K/uL Neut % (Auto) (36-66) % Lymph % (Auto) (24-44) % [place] % (Auto) (2-6) % Eos % (Auto) (2-4) % Baso % (Auto) (0-1) % D-Dimer, Quantitative (0.0-500.0) ng/mL Sodium (140-148) mmol/L Potassium (3.6-5.2) mmol/L Chloride (100-108) mmol/L Carbon Dioxide (21-32) mmol/L Anion Gap (5.0-14.0) mmol/L BUN (7-18) mg/dL Creatinine (0.8-1.3) mg/dL Est Cr Clr Drug Dosing mL/min Estimated GFR (MDRD) (>60) Glucose (74-106) mg/dL Lactic Acid 1.6 (0.4-2.0) mmol/L Calcium (8.5-10.1) mg/dL Total Bilirubin (0.2-1.0) mg/dL AST (15-37) U/L ALT (12-78) U/L Alkaline Phosphatase (46-116) U/L Troponin I 0.051 (0.000-0.056) ng/mL Total Protein (6.4-8.2) g/dL Albumin (3.4-5.0) g/dL Globulin (2.3-3.5) g/dL Albumin/Globulin Ratio (1.2-2.2) Meds: Medications Generic Name Dose Route Start Last Admin Trade Name Freq PRN Reason Stop Dose Admin Diltiazem HCl 100 mg/ Sodium 100 mls @ 5 mls/hr 06/19/20 11:30 Chloride IV TITRATE CLARA Protocol 5 MG/HR Discontinued Medications Generic Name Dose Route Start Last Admin Trade Name Freq PRN Reason Stop Dose Admin Diltiazem HCl 15 mg 06/19/20 11:25 Diltiazem 25 Mg/5 Ml Sdv IVPUSH 06/19/20 11:26 ONETIME ONE Sodium Chloride 100 mls @ 4 mls/sec 06/19/20 10:15 06/19/20 10:56 Normal Saline IV 06/19/20 10:16 4 mls/sec ASDIRECTED CLARA Administration Iopamidol 100 ml 06/19/20 10:15 06/19/20 10:57 Iopamidol 755 Mg/Ml 100 Ml Bottle IV 06/19/20 10:16 100 ml . DIRECTED CLARA Administration Sodium Chloride 10 ml 06/19/20 10:07 06/19/20 10:56 Sodium Chloride 0.9% 10 Ml Syringe FLUSH 06/19/20 10:08 10 ml ONETIME ONE Administration Departure - Departure Time of Disposition: 11:31 Disposition: Admitted As Inpatient 64 Condition: Poor Clinical Impression: New onset atrial fibrillation Instructions: Atrial Fibrillation Referrals: PCP,None [Primary Care Provider] - Forms: ED Department Discharge Sepsis Event Note (ED) - Evaluation Sepsis Screening Result: No Definite Risk - Focused Exam Vital Signs: Vital Signs Temp Pulse Resp BP Pulse Ox 06/19/20 11:14 123 H 25 H 137/78 95 06/19/20 08:09 98.3 F 102 H 26 H 132/57 L 97 - My Orders Last 24 Hours: My Active Orders 06/19/20 08:39 EKG Documentation Completion [RC] ASDIRECTED EKG 12 Lead [EK] Stat 06/19/20 11:30 Diltiazem 100 MG in Normal Saline Adv @ 5 MG/HR(100ml) Diltiazem [Cardizem] 100 mg Sodium Chloride 0.9% [Normal Saline] 100 ml IV TITRATE - Assessment/Plan Last 24 Hours: My Active Orders 06/19/20 08:39 EKG Documentation Completion [RC] ASDIRECTED EKG 12 Lead [EK] Stat 06/19/20 11:30 Diltiazem 100 MG in Normal Saline Adv @ 5 MG/HR(100ml) Diltiazem [Cardizem] 100 mg Sodium Chloride 0.9% [Normal Saline] 100 ml IV TITRATE Plan: Assessment Acuity = acute Site and laterality = new onset atrial fibrillation, weakness concern for pneumonia development left lower lobe Etiology = unknown Manifestations = weakness, shortness of breath Location of injury = Home Lab values = CBC unremarkable D-dimer elevated 955 uncertain significance sodium low at 133 consistent with hyponatremia troponin in the normal range 0.051 CT scan describes no pulmonary embolism however there is a question of new development early pneumonia left lower lobe Plan Call discussed case hospitalist on-call at 1130 kindly agreed to come and evaluate patient emergency department for admission, Cardizem drip has been initiated in the emergency department This note was dictated using [employer] voice recognition software please call with any questions on syntax or grammar.
[2020-06-19] MEDS ORDERED: Sodium Chloride 0.9% 10 ML Syringe FLUSH ONE (10:07)
[2020-06-19] MEDS ORDERED: Iopamidol 755 Mg/ML 100 ML Bottle IV SCH (10:15)
[2020-06-19] MEDS ORDERED: Sodium Chloride 0.9% 100 ML IV SCH (10:15)
--- NOTE | 2020-06-19 11:19 | CT ---
Ang Chest CLINICAL HISTORY: Elevated d-dimer TECHNIQUE: Thin section axial contiguous tomographic sections were taken through the chest after bolus IV iodinated contrast administration. Coronal and sagittal images were reconstructed. Auto dosage reduction and iterative reconstruction techniques employed. FINDINGS: There is some reading motion which reduces detail in the lung bases. There is some regional groundglass opacification in the left lower lobe. No pulmonary masses identified. There are no pleural effusions. There is a 5 mm some solid nodular focus with some surrounding micronodular nodularity in the right upper lobe best seen on image #15. No mediastinal mass or suspicious lymphadenopathy is identified. There are no pericardial effusions. There are atherosclerotic changes in the aorta. There are no filling defects in the pulmonary arteries. There is no vessel cut off. IMPRESSION: No evidence of pulmonary embolus There is some groundglass opacification in the left lower lobe. This may represent early pneumonitis Subcentimeter nodular focus in the right upper lobe with some surrounding nodularity is most likely related to some chronic infection
[2020-06-19] MEDS ORDERED: Diltiazem 25 MG/5 ML SDV IVPUSH ONE (11:25)
[2020-06-19] MEDS: Diltiazem 100 MG in Sodium Chloride 0.9% 100 ML IV SCH ×2 (11:35→21:32)
[2020-06-19] MEDS ORDERED: Acetaminophen/HYDROcodone 325-10 MG Tab PO ONE (13:17)
[2020-06-19] MEDS ORDERED: Bismuth Subsalicylate 262 MG/15 ML Susp 236 ML Bottle PO ONE (15:04)
[2020-06-19] MEDS ORDERED: Levofloxacin/Dextrose 5%-Water 750 MG in Premix Bag 1 BAG IV SCH ×2 (15:15→16:00)
--- NOTE | 2020-06-19 15:22 | PCM.HP.2 ---
H&P History of Present Illness - General Date of Service: 06/19/20 Admit Problem/Dx: Admission Diagnosis/Problem Admission Diagnosis/Problem Pneumonia Source of Information: Patient, Provider History Limitations: Reports: No Limitations - History of Present Illness Initial Comments - Free Text/Narative: CC: I collapsed this morning HPI: Blake presents to the emergency room after an episode of syncope this morning. He reports several days of diarrhea and poor intake and thinks that he is getting dehydrated because of the diarrhea. He felt a little dizzy before he collapsed on the floor. He feels a little short of breath and has been coughing. He had some chest pain yesterday but none today. He reports intermittent watery diarrhea that is somewhat urgent. He does have some abdominal pain which is mild and crampy. He has been taking his usual pain pills and they do seem to help some. No obvious trigger to make the abdominal pain worse. Mild nausea but no vomiting. He does report a sore throat for the past 2 or 3 days which is slowly getting better and he is able to swallow some liquids now. No fevers or chills. He feels weak. He has aches and pains in most of his joints but this is chronic and stable. He was seen in the emergency room yesterday but work-up was reassuring and he wanted to try it at home. Work-up in the emergency room today revealed evidence for mild dehydration. He was in atrial fibrillation with a rapid ventricular response and was started on a diltiazem infusion. His D-dimer was elevated so a CT pulmonary angiogram was obtained. There was no PE but it did show a left lower lobe pneumonia/pneumonitis. Antibiotics were initiated and he will be admitted for further management. Abdominal Pain Score (Numeric/FACES): 2 Throat Pain Score (Numeric/FACES): 10 - Related Data Allergies/Adverse Reactions: Allergies Allergy/AdvReac Type Severity Reaction Status Date / Time No Known Allergies Allergy Verified 06/19/20 08:18 Home Medications: Home Meds Aspirin 81 mg PO DAILY 08/10/13 [History] Lisinopril/Hydrochlorothiazide [Lisinopril-Hctz 20-12.5 mg Tab] 1 each PO BID 08/10/13 [History] Metoprolol Succinate [Toprol XL 50mg] 1 tab PO DAILY 08/10/13 [History] Nitroglycerin 0.4 mg SL ASDIRECTED PRN 08/10/13 [History] dilTIAZem HCL [Diltiazem 12Hr ER] 90 mg PO BID 08/10/13 [History] Hydrocodone/Acetaminophen [Hydrocodon-Acetaminophn 10-325] 2 tab PO Q8H PRN 01/02/19 [History] LORazepam 0.5 mg PO Q8H PRN 01/02/19 [History] Tamsulosin [Flomax] 0.4 mg PO BEDTIME #30 cap.er 09/06/19 [Rx] Citalopram [Citalopram HBr] 10 mg PO DAILY 06/18/20 [History] Pantoprazole [ProTONIX] 40 mg PO DAILY 06/18/20 [History] Simvastatin 80 mg PO BEDTIME 06/18/20 [History] Past Medical History HEENT History: Reports: Impaired Vision Cardiovascular History: Reports: Bypass, CAD, Hypertension, Stents Gastrointestinal History: Reports: Diverticulosis, GERD, Other (See Below) Other Gastrointestinal History: bowel obstruction Genitourinary History: Reports: Prostate Disorder Musculoskeletal History: Reports: Arthritis, Back Pain, Chronic Psychiatric History: Reports: Anxiety, Depression Other Oncologic History: skin Other Dermatologic History: skin cancer - Infectious Disease History Infectious Disease History: Reports: Chicken Pox, Measles, Mumps - Past Surgical History Cardiovascular Surgical History: Reports: Valve Replacement, Other (See Below) Other Cardiovascular Surgeries/Procedures: 2 open heart surgeries GI Surgical History: Reports: Appendectomy, Cholecystectomy, Colonoscopy, EGD, Hernia Repair/Other Male Surgical History: Reports: None Social & Family History - Family History Cardiac: Reports: CAD, [place] : Reports: Renal Disease/Insufficiency Oncologic: Reports: Brain - Tobacco Use Tobacco Use Status *Q: Former Tobacco User Used Tobacco, but Quit: Yes Month/Year Tobacco Last Used: 40 years ago - Caffeine Use Caffeine Use: Reports: Coffee Caffeine Use Comment: rarely - Alcohol Use Alcohol Use History: No - Recreational Drug Use Recreational Drug Use: No H&P Review of Systems - Review of Systems: Review Of Systems: See Below Free Text/Narrative: A complete 12 point review of systems was obtained. Pertinent positives and ne gatives are noted in the history of present illness. All other systems were reviewed and were negative except as noted. Exam - Exam Exam: See Below - Vital Signs Vital Signs: Last Vital Signs Temp 36.8 C 06/19/20 08:09 Pulse 63 06/19/20 12:11 Resp 24 H 06/19/20 12:11 BP 151/77 H 06/19/20 12:11 Pulse Ox 94 L 06/19/20 12:11 Weight: 68.039 kg - Exam Quality Assessment: No: Supplemental Oxygen General: Alert, Oriented, Cooperative. No: Mild Distress HEENT: Conjunctiva Clear. No: Mucosa Moist & [place] (dry), Scleral Icterus Neck: Supple, Trachea Midline. No: Lymphadenopathy Lungs: Normal Respiratory Effort, Crackles (few left lung base) Cardiovascular: Irregular Rhythm, Tachycardia GI/Abdominal Exam: Normal Bowel Sounds, Soft, Distended (mild ), Tender (mild generalized ) Back Exam: Normal Inspection, Full Range of Motion Extremities: Pedal Edema. No: Increased Warmth Skin: Warm, Dry, Other (dry flaking skin both lower legs from midshin distally ) Neuro Extensive - Mental Status: Alert, Oriented x3, Nl Response to Commands Neuro Extensive - Motor, Sensory, Reflexes: No: Dysarthria, Abnormal Motor, Tremor Psychiatric: Alert, Normal Affect - Patient Data Lab Results Last 24 hrs: Laboratory Results - last 24 hr 06/19/20 06/19/20 06/19/20 Range/Units 08:55 08:55 08:55 WBC 7.1 (4.5-11.0) K/uL RBC 4.34 (4.30-5.90) M/uL Hgb 12.6 (12.0-15.0) g/dL Hct 37.7 L (40.0-54.0) % MCV 87 (80-98) fL MCH 29 (27-31) pg MCHC 33 (32-36) % Plt Count 171 (150-400) K/uL Neut % (Auto) 81 H (36-66) % Lymph % (Auto) 8 L (24-44) % [place] % (Auto) 11 H (2-6) % Eos % (Auto) 0 L (2-4) % Baso % (Auto) 0 (0-1) % D-Dimer, Quantitative 955.96 H (0.0-500.0) ng/mL Sodium 133 L (140-148) mmol/L Potassium 3.7 (3.6-5.2) mmol/L Chloride 94 L (100-108) mmol/L Carbon Dioxide 26 (21-32) mmol/L Anion Gap 16.7 H (5.0-14.0) mmol/L BUN 19 H (7-18) mg/dL Creatinine 1.3 (0.8-1.3) mg/dL Est Cr Clr Drug Dosing 39.25 mL/min Estimated GFR (MDRD) 52 L (>60) Glucose 127 H (74-106) mg/dL Lactic Acid (0.4-2.0) mmol/L Calcium 9.3 (8.5-10.1) mg/dL Total Bilirubin 0.8 (0.2-1.0) mg/dL AST 27 (15-37) U/L ALT 20 (12-78) U/L Alkaline Phosphatase 74 (46-116) U/L Troponin I (0.000-0.056) ng/mL Total Protein 7.6 (6.4-8.2) g/dL Albumin 3.8 (3.4-5.0) g/dL Globulin 3.8 H (2.3-3.5) g/dL Albumin/Globulin Ratio 1.0 L (1.2-2.2) 06/19/20 06/19/20 Range/Units 08:55 08:55 WBC (4.5-11.0) K/uL RBC (4.30-5.90) M/uL Hgb (12.0-15.0) g/dL Hct (40.0-54.0) % MCV (80-98) fL MCH (27-31) pg MCHC (32-36) % Plt Count (150-400) K/uL Neut % (Auto) (36-66) % Lymph % (Auto) (24-44) % [place] % (Auto) (2-6) % Eos % (Auto) (2-4) % Baso % (Auto) (0-1) % D-Dimer, Quantitative (0.0-500.0) ng/mL Sodium (140-148) mmol/L Potassium (3.6-5.2) mmol/L Chloride (100-108) mmol/L Carbon Dioxide (21-32) mmol/L Anion Gap (5.0-14.0) mmol/L BUN (7-18) mg/dL Creatinine (0.8-1.3) mg/dL Est Cr Clr Drug Dosing mL/min Estimated GFR (MDRD) (>60) Glucose (74-106) mg/dL Lactic Acid 1.6 (0.4-2.0) mmol/L Calcium (8.5-10.1) mg/dL Total Bilirubin (0.2-1.0) mg/dL AST (15-37) U/L ALT (12-78) U/L Alkaline Phosphatase (46-116) U/L Troponin I 0.051 (0.000-0.056) ng/mL Total Protein (6.4-8.2) g/dL Albumin (3.4-5.0) g/dL Globulin (2.3-3.5) g/dL Albumin/Globulin Ratio (1.2-2.2) Result Diagrams: 06/19/20 08:55 06/19/20 08:55 Imaging Impressions Last 24 hrs: CT pulmonary angiogram-these images were personally reviewed-no evidence for pulmonary embolism. He does have some groundglass opacity in the left lower lung consistent with pneumonitis/early pneumonia. #1 Interpretation EKG Date: 06/19/20 Rhythm: A-Fib Rate (Beats/Min): 120 [place]: RAD-Right [place] Deviation P-Wave: Variable QRS: RBBB ST-T: Normal QT: Normal Comparison: Change From Previous EKG EKG Interpretation Comments: I personally reviewed this EKG image Sepsis Event Note - Evaluation Sepsis Screening Result: No Definite Risk - Focused Exam Vital Signs: Vital Signs Temp Pulse Resp BP Pulse Ox 06/19/20 12:11 63 24 H 151/77 H 94 L 06/19/20 11:14 123 H 25 H 137/78 95 06/19/20 08:09 36.8 C 102 H 26 H 132/57 L 97 *Q Meaningful Use (ADM) - VTE Risk Assess *Q Each Risk Factor Represents 1 Point: Swollen Legs, Current, Serious lung disease including pneumonia Total Score 1 Point Risk Factors: 2 Each Risk Factor Represents 2 Points: None Total Score 2 Point Risk Factors: 0 Each Risk Factor Represents 3 Points: Age 75 Years or Greater Total Score 3 Point Risk Factors: 3 Each Risk Factor Represents 5 Points: None Total Score 5 Point Risk Factors: 0 Venous Thromboembolism Risk Factor Score *Q: 5 - Problem List (1) Left lower lobe pneumonia SNOMED Code(s): 250712371 ICD Code: J18.9 - PNEUMONIA, UNSPECIFIED ORGANISM Status: Acute Current Visit: Yes Qualifiers: Pneumonia type: due to unspecified organism Qualified Code(s): J18.9 - Pneumonia, unspecified organism (2) Paroxysmal atrial fibrillation with rapid ventricular response SNOMED Code(s): 7075928067 ICD Code: I48.0 - PAROXYSMAL ATRIAL FIBRILLATION Status: Acute Current Visit: Yes (3) Diarrhea SNOMED Code(s): 81436081 ICD Code: R19.7 - DIARRHEA, UNSPECIFIED Status: Acute Current Visit: Yes Qualifiers: Diarrhea type: presumed infectious Qualified Code(s): R19.7 - Diarrhea, unspecified (4) CAD (coronary artery disease) SNOMED Code(s): 74138829 ICD Code: I25.10 - ATHSCL HEART DISEASE OF [place] CORONARY ARTERY W/O ANG PCTRS Status: Chronic Current Visit: No Qualifiers: Coronary Disease-Associated Artery/Lesion type: [place] artery [place] vs. transplanted heart: [place] heart Associated angina: without angina Qualified Code(s): I25.10 - Atherosclerotic heart disease of [place] coronary artery without angina pectoris (5) Aortic stenosis SNOMED Code(s): 76587653 ICD Code: I35.0 - NONRHEUMATIC AORTIC (VALVE) STENOSIS Status: Chronic Current Visit: No Qualifiers: Cardiac valve disease etiology: etiology unspecified Qualified Code(s): I35.0 - Nonrheumatic aortic (valve) stenosis Problem List Initiated/Reviewed/Updated: Yes Orders Last 24hrs: Active Orders 24 hr Category Date Time Status Patient Status Manage Transfer [TRANSFER] Routine ADT 06/19/20 15:08 Ordered EKG Documentation Completion [RC] ASDIRECTED Care 06/19/20 08:39 Active Diltiazem [Cardizem] 100 mg Med 06/19/20 11:30 Active Sodium Chloride 0.9% [Normal Saline] 100 ml IV TITRATE Levofloxacin/Dextrose 5%-Water [Levaquin in D5W 750 MG/ Med 06/19/20 15:15 Active 150 ML] 750 mg Premix Bag 1 bag IV Q24H Resuscitation Status Routine Resus Stat 06/19/20 15:11 Ordered EKG 12 Lead [EK] Stat Ther 06/19/20 08:39 Ordered Medication Orders Diltiazem HCl 100 mg/ Sodium (Chloride) 100 mls @ 5 mls/hr IV TITRATE CLARA; Protocol Last Titration: 06/19/20 13:31 Dose: 5 mg/hr, 5 mls/hr Documented by: Admin: 06/19/20 11:35 Dose: 5 mg/hr, 5 mls/hr Documented by: PREILOR Levofloxacin/Dextrose 750 mg/ (Premix) 150 mls @ 100 mls/hr IV Q24H CLARA Assessment/Plan Comment:: ASSESSMENT AND PLAN - Left lower lobe pneumonia-curb 65 score is 2 suggesting 13% mortality. Multiple chronic medical problems as well. Not currently hypoxic but he is weak, in atrial fibrillation and obviously dyspneic in the room. I suspect the diarrhea is probably related to the pneumonia since the symptoms started about the same time. -Antibiotic coverage with levofloxacin -Blood cultures if fever -Symptomatic management of cough and diarrhea -Gentle IV fluids overnight -Supplement oxygen if needed Paroxysmal atrial fibrillation with rapid ventricular response-rate has improved some with the diltiazem infusion. Hopefully additional treatment for the pneumonia will improve his heart rate since this is likely the instigator for the rhythm. He does have a history of heart disease but troponin is normal. -Optimize electrolytes -Diltiazem infusion -Continue metoprolol -Cardiac monitoring Coronary artery disease-extensive history. No chest pain today. Troponin is normal. -Continue medical management Stage III chronic kidney disease-creatinine near baseline but slightly higher. Hopefully this will improve with some fluids and pneumonia treatment. Maintenance issues - -DVT prophylaxis-enoxaparin -GI prophylaxis-PPI -[id number] -James catheter-not indicated CODE STATUS -DNR/DNI Admission justification -this patient will be admitted for inpatient services and is medically appropriate meeting medical necessity for inpatient admission as outlined in my documentation. I reasonably expect the patient will require inpatient services that span a period time over 2 midnights. I reasonably expect this patient to be discharged or transferred within 96 hours [facility]. Disposition -I anticipate discharge home after the hospital stay Primary care physician -Dr. Darion Franks M.D. - Mortality Measure Prognosis:: Good
[2020-06-19] MEDS ORDERED: Albuterol 0.083% 2.5 MG/3 ML Neb Soln NEB PRN (15:34)
[2020-06-19] MEDS ORDERED: Benzonatate 100 MG Cap PO PRN (15:34)
[2020-06-19] MEDS ORDERED: Benzocaine/Cetylpyridinium/Menthol Lozenge MUCMEM PRN (15:34)
[2020-06-19] MEDS ORDERED: guaiFENesin/Dextromethorphan 100-10 MG/5 ML Soln 10 ML Cup PO PRN (15:34)
[2020-06-19] MEDS ORDERED: Sodium Chloride 0.9% 1,000 ML IV SCH ×2 (15:34→18:15)
[2020-06-19] MEDS ORDERED: Ondansetron 4 MG Tab.DIS PO PRN (15:34)
[2020-06-19] MEDS ORDERED: Ondansetron 4 MG/2 ML SDV IV PRN (15:34)
[2020-06-19] MEDS ORDERED: Morphine 2 MG/ML SYRINGE IVPUSH PRN (15:34)
[2020-06-19] MEDS ORDERED: LORazepam 2 MG/ML SDV IVPUSH PRN (15:34)
[2020-06-19] MEDS ORDERED: Magnesium Hydroxide 400 MG/5 ML Susp 30 ML Cup PO PRN (15:34)
[2020-06-19] MEDS ORDERED: Lidocaine 2% Viscous Solution 15 ML Cup PO PRN (15:34)
[2020-06-19] MEDS ORDERED: Bismuth Subsalicylate 262 MG Tab.Chew PO ONE (15:45)
[2020-06-19] MEDS: Enoxaparin 40 MG/0.4 ML Syringe SUBCUT SCH (16:12)
[2020-06-19 16:50] LABS: CORONAVIRUS COVID-19 NAA POSITIVE (NEGATIVE)
[2020-06-19] MEDS ORDERED: EPINEPHrine 1 MG/ML SDV IM PRN (17:45)
[2020-06-19] MEDS ORDERED: Famotidine 20 MG/2 ML SDV IVPUSH PRN (17:45)
[2020-06-19] MEDS ORDERED: Sodium Chloride 0.9% 10 ML Syringe FLUSH SCH (17:45)
[2020-06-19] MEDS ORDERED: methylPREDNISolone Sodium Succinate 125 MG/2 ML SDV IVPUSH PRN (17:45)
[2020-06-19] MEDS ORDERED: diphenhydrAMINE 50 MG/ML SDV IVPUSH PRN (17:45)
[2020-06-19] MEDS ORDERED: Non-Formulary Medication 1 Each (Lisinopril/Hydrochlorothiazide [Lisinopril-Hctz 20-12.5 M PO SCH (21:00)
[2020-06-19] MEDS: Simvastatin 20 MG Tab PO SCH (21:18)
[2020-06-19] MEDS: Lactobacillus Rhamnosus GG (Probiotic) Cap PO SCH (21:19)
[2020-06-19] MEDS: Lisinopril 20 MG Tab PO SCH (21:19)
[2020-06-19] MEDS: Acetaminophen/HYDROcodone 325-10 MG Tab PO PRN (21:24)
[2020-06-19] MEDS: Hydrochlorothiazide 12.5 MG Cap PO SCH (21:24)
[2020-06-19] MEDS: Melatonin 3 MG Tab PO SCH (21:24)
[2020-06-19] MEDS: Tamsulosin 0.4 MG Cap.ER PO SCH (21:25)
[2020-06-19] MEDS: LORazepam 0.5 MG Tab PO PRN (21:25)
[2020-06-20] MEDS: Acetaminophen/HYDROcodone 325-10 MG Tab PO PRN ×4 (04:15→22:30)
[2020-06-20] MEDS ORDERED: Casirivimab 1,200 MG, Imdevimab 1,200 MG in Sodium Chloride 0.9% 230 ML IV ONE (07:00)
[2020-06-20] MEDS: Pantoprazole 40 MG Tab.CR PO SCH (07:50)
[2020-06-20] MEDS ORDERED: methylPREDNISolone Sodium Succinate 125 MG/2 ML SDV IVPUSH PRN (08:00)
[2020-06-20] MEDS ORDERED: Famotidine 20 MG/2 ML SDV IV PRN (08:00)
[2020-06-20] MEDS ORDERED: Acetaminophen 325 MG Tab PO PRN (08:00)
[2020-06-20] MEDS ORDERED: SODIUM CHLORIDE 0.9% IV ONE ×2 (08:00→09:30)
[2020-06-20] MEDS ORDERED: CASIRIVIMAB IV ONE ×2 (08:00→09:30)
[2020-06-20] MEDS ORDERED: EPINEPHrine 1 MG/ML SDV IM PRN (08:00)
[2020-06-20] MEDS ORDERED: diphenhydrAMINE 50 MG/ML SDV IVPUSH PRN (08:00)
[2020-06-20] MEDS ORDERED: IMDEVIMAB IV ONE ×2 (08:00→09:30)
[2020-06-20] MEDS: Citalopram 10 MG Tab PO SCH (08:16)
[2020-06-20] MEDS: Lactobacillus Rhamnosus GG (Probiotic) Cap PO SCH ×2 (08:16→20:25)
[2020-06-20] MEDS: Metoprolol Succinate 50 MG Tab.ER PO SCH (08:17)
[2020-06-20] MEDS: Aspirin 325 MG Tab.EC PO SCH (08:19)
[2020-06-20] MEDS: Magnesium Oxide 400 MG Tab PO SCH ×2 (08:21→20:25)
[2020-06-20] MEDS ORDERED: Potassium Chloride 20 MEQ Tab.ER PO ONE (08:30)
[2020-06-20] MEDS ORDERED: Non-Formulary Medication 1 Each (Aspirin [Aspirin] 325 MG Tablet) PO SCH (09:00)
[2020-06-20] MEDS: Diltiazem 180 MG Cap.CD PO SCH (09:01)
[2020-06-20] MEDS: Lisinopril 20 MG Tab PO SCH ×2 (09:01→20:25)
[2020-06-20] MEDS: Hydrochlorothiazide 12.5 MG Cap PO SCH ×2 (09:02→20:25)
--- NOTE | 2020-06-20 09:32 | PCM.PN ---
- General Info Date of Service: 06/20/20 Subjective Update: No acute events overnight. We have achieved return to sinus rhythm with the diltiazem infusion and this has been weaned down. He remains weak and has not been out of bed as of yet. He has not had any recurrence of his syncope. Sore throat and diarrhea are a little better but not resolved. He has not been hypoxic. He has a mild cough and mild shortness of breath. No chest pain. Functional Status: Reports: Pain Controlled, Tolerating Diet - Review of Systems General: Reports: Weakness, Fatigue. Denies: Fever HEENT: Reports: Sore Throat Pulmonary: Reports: Cough Gastrointestinal: Reports: Diarrhea - Patient Data Vitals - Most Recent: Last Vital Signs Temp 36.7 C 06/20/20 08:00 Pulse 73 06/20/20 09:00 Resp 18 06/20/20 09:00 BP 130/52 L 06/20/20 09:01 Pulse Ox 97 06/20/20 09:00 Weight - Most Recent: 56.109 kg I&O - Last 24 Hours: Intake & Output 06/19/20 06/20/20 06/20/20 22:59 06:59 14:59 Intake Total 1314 274 Output Total 550 1050 Balance 764 -776 Lab Results Last 24 Hours: Laboratory Results - last 24 hr 06/19/20 06/19/20 06/20/20 Range/Units 08:55 15:40 05:30 WBC 6.4 (4.5-11.0) K/uL RBC 4.13 L (4.30-5.90) M/uL Hgb 11.7 L (12.0-15.0) g/dL Hct 35.9 L (40.0-54.0) % MCV 87 (80-98) fL MCH 28 (27-31) pg MCHC 33 (32-36) % Plt Count 161 (150-400) K/uL D-Dimer, Quantitative 955.96 H (0.0-500.0) ng/mL Sodium (140-148) mmol/L Potassium (3.6-5.2) mmol/L Chloride (100-108) mmol/L Carbon Dioxide (21-32) mmol/L Anion Gap (5.0-14.0) mmol/L BUN (7-18) mg/dL Creatinine (0.8-1.3) mg/dL Est Cr Clr Drug Dosing mL/min Estimated GFR (MDRD) (>60) Glucose (74-106) mg/dL Calcium (8.5-10.1) mg/dL Magnesium (1.8-2.4) mg/dL Influenza Type A RNA Negative (NEGATIVE) RSV RNA (INAAT) Negative (NEGATIVE) Influenza Type B RNA Negative (NEGATIVE) SARS-CoV-2 RNA (MORIAH) Positive H (NEGATIVE) 06/20/20 Range/Units 05:30 WBC (4.5-11.0) K/uL RBC (4.30-5.90) M/uL Hgb (12.0-15.0) g/dL Hct (40.0-54.0) % MCV (80-98) fL MCH (27-31) pg MCHC (32-36) % Plt Count (150-400) K/uL D-Dimer, Quantitative (0.0-500.0) ng/mL Sodium 137 L (140-148) mmol/L Potassium 3.4 L (3.6-5.2) mmol/L Chloride 99 L (100-108) mmol/L Carbon Dioxide 28 (21-32) mmol/L Anion Gap 13.4 (5.0-14.0) mmol/L BUN 19 H (7-18) mg/dL Creatinine 1.1 (0.8-1.3) mg/dL Est Cr Clr Drug Dosing 38.26 mL/min Estimated GFR (MDRD) > 60 (>60) Glucose 122 H (74-106) mg/dL Calcium 8.7 (8.5-10.1) mg/dL Magnesium 1.6 L (1.8-2.4) mg/dL Influenza Type A RNA (NEGATIVE) RSV RNA (INAAT) (NEGATIVE) Influenza Type B RNA (NEGATIVE) SARS-CoV-2 RNA (MORIAH) (NEGATIVE) Med Orders - Current: Current Medications Acetaminophen (Acetaminophen 325 Mg Tab) 650 mg PO ONETIME PRN PRN Reason: HEADACHE,CHILLS Hydrocodone Bitart/Acetaminophen (Acetaminophen/Hydrocodone 325-10 Mg Tab) 2 tab PO Q6H PRN PRN Reason: Pain Last Admin: 06/20/20 04:15 Dose: 2 tab Documented by: Albuterol (Albuterol 0.083% 2.5 Mg/3 Ml Neb Soln) 2.5 mg NEB Q4H PRN PRN Reason: Shortness Of Breath/wheezing Aspirin (Aspirin 325 Mg Tab.Ec) 325 mg PO DAILY [facility] Last Admin: 06/20/20 08:19 Dose: 325 mg Documented by: Benzocaine/Menthol (Benzocaine/Cetylpyridinium/Menthol Lozenge) 1 lozenge MUCMEM Q2H PRN PRN Reason: Sore Throat Benzonatate (Benzonatate 100 Mg Cap) 100 mg PO TID PRN PRN Reason: Cough Citalopram Hydrobromide (Citalopram 10 Mg Tab) 10 mg PO DAILY [facility] Last Admin: 06/20/20 08:16 Dose: 10 mg Documented by: Diltiazem HCl (Diltiazem 180 Mg Cap.Cd) 180 mg PO DAILY [facility] Last Admin: 06/20/20 09:01 Dose: 180 mg Documented by: Diphenhydramine HCl (Diphenhydramine 50 Mg/Ml Sdv) 50 mg IVPUSH ONETIME PRN PRN Reason: ALLERGIC RXN Stop: 06/20/20 16:00 Enoxaparin Sodium (Enoxaparin 40 Mg/0.4 Ml Syringe) 40 mg SUBCUT Q24H [facility] Last Admin: 06/19/20 16:12 Dose: 40 mg Documented by: Epinephrine HCl (Epinephrine 1 Mg/Ml Sdv) 0.3 mg IM ONETIME PRN PRN Reason: ALLERGIC RXN Stop: 06/20/20 16:00 Famotidine (Famotidine 20 Mg/2 Ml Sdv) 20 mg IV ONETIME PRN PRN Reason: ALLERGIC RXN Stop: 06/20/20 16:00 Guaifenesin/Dextromethorphan (Guaifenesin/Dextromethorphan 100-10 Mg/5 Ml Soln 10 Ml Cup) 10 ml PO Q4H PRN PRN Reason: Cough Hydrochlorothiazide (Hydrochlorothiazide 12.5 Mg Cap) 12.5 mg PO BID [facility] Last Admin: 06/20/20 09:02 Dose: 12.5 mg Documented by: Sodium Chloride (Normal Saline) 1,000 mls @ 25 mls/hr IV ASDIRECTED [facility] Non-Formulary Medication 1,200 mg/ Non-Formulary Medication 1,200 mg/ Sodium Chloride 170 mls @ 310 mls/hr IV ONETIME ONE Stop: 06/20/20 10:02 Lactobacillus Rhamnosus (Lactobacillus Rhamnosus Gg (Probiotic) Cap) 1 cap PO BID [facility] Last Admin: 06/20/20 08:16 Dose: 1 cap Documented by: Lidocaine HCl (Lidocaine 2% Viscous Solution 15 Ml Cup) 15 ml PO Q4H PRN PRN Reason: Sore Throat Lisinopril (Lisinopril 20 Mg Tab) 20 mg PO BID [facility] Last Admin: 06/20/20 09:01 Dose: 20 mg Documented by: Lorazepam (Lorazepam 0.5 Mg Tab) 0.5 mg PO Q8H PRN PRN Reason: Anxiety Last Admin: 06/19/20 21:25 Dose: 0.5 mg Documented by: Lorazepam (Lorazepam 2 Mg/Ml Sdv) 0.5 mg IVPUSH Q4H PRN PRN Reason: Nausea/Vomiting Magnesium Hydroxide (Magnesium Hydroxide 400 Mg/5 Ml Susp 30 Ml Cup) 30 ml PO Q12H PRN PRN Reason: Constipation Magnesium Oxide (Magnesium Oxide 400 Mg Tab) 400 mg PO BID [facility] Last Admin: 06/20/20 08:21 Dose: 400 mg Documented by: Melatonin (Melatonin 3 Mg Tab) 9 mg PO BEDTIME [facility] Last Admin: 06/19/20 21:24 Dose: 9 mg Documented by: Methylprednisolone Sodium Succinate (Methylprednisolone Sodium Succinate 125 Mg/2 Ml Sdv) 125 mg IVPUSH ONETIME PRN PRN Reason: ALLERGIC RXN Stop: 06/20/20 16:00 Metoprolol Succinate (Metoprolol Succinate 50 Mg Tab.Er) 50 mg PO DAILY [facility] Last Admin: 06/20/20 08:17 Dose: 50 mg Documented by: Morphine Sulfate (Morphine 2 Mg/Ml Syringe) 2 mg IVPUSH Q2H PRN PRN Reason: Pain (severe 7-10) Last Admin: 06/19/20 18:54 Dose: 2 mg Documented by: Ondansetron HCl (Ondansetron 4 Mg/2 Ml Sdv) 4 mg IV Q6H PRN PRN Reason: Nausea/Vomiting Ondansetron HCl (Ondansetron 4 Mg Tab.Dis) 4 mg PO Q6H PRN PRN Reason: Nausea able to take PO Pantoprazole Sodium (Pantoprazole 40 Mg Tab.Cr) 40 mg PO ACBREAKFAST [facility] Last Admin: 06/20/20 07:50 Dose: 40 mg Documented by: Senna/Docusate Sodium (Docusate Sodium/Sennosides 50-8.6 Mg Tab) 1 tab PO BID PRN PRN Reason: Constipation Simvastatin (Simvastatin 20 Mg Tab) 80 mg PO BEDTIME [facility] Last Admin: 06/19/20 21:18 Dose: 80 mg Documented by: Tamsulosin HCl (Tamsulosin 0.4 Mg Cap.Er) 0.4 mg PO BEDTIME [facility] Last Admin: 06/19/20 21:25 Dose: 0.4 mg Documented by: Discontinued Medications Hydrocodone Bitart/Acetaminophen (Acetaminophen/Hydrocodone 325-10 Mg Tab) 2 tab PO ONETIME ONE Stop: 06/19/20 13:18 Last Admin: 06/19/20 13:26 Dose: 2 tab Documented by: Bismuth Subsalicylate (Bismuth Subsalicylate 262 Mg Tab.Chew) 524 mg PO ONETIME ONE Stop: 06/19/20 15:46 Last Admin: 06/19/20 16:10 Dose: 524 mg Documented by: Diltiazem HCl (Diltiazem 25 Mg/5 Ml Sdv) 15 mg IVPUSH ONETIME ONE Stop: 06/19/20 11:26 Last Admin: 06/19/20 11:33 Dose: 15 mg Documented by: Sodium Chloride (Normal Saline) 100 mls @ 4 mls/sec IV ASDIRECTED [facility] Stop: 06/19/20 10:16 Last Admin: 06/19/20 10:56 Dose: 4 mls/sec Documented by: Diltiazem HCl 100 mg/ Sodium (Chloride) 100 mls @ 5 mls/hr IV TITRATE [facility]; Protocol Last Titration: 06/20/20 01:15 Dose: 2.5 mg/hr, 2.5 mls/hr Documented by: Sodium Chloride (Normal Saline) 1,000 mls @ 100 mls/hr IV ASDIRECTED [facility] Last Admin: 06/19/20 16:16 Dose: 100 mls/hr Documented by: Levofloxacin/Dextrose 750 mg/ (Premix) 150 mls @ 100 mls/hr IV Q24H [facility] Last Admin: 06/19/20 16:10 Dose: 100 mls/hr Documented by: Iopamidol (Iopamidol 755 Mg/Ml 100 Ml Bottle) 100 ml IV . DIRECTED [facility] Stop: 06/19/20 10:16 Last Admin: 06/19/20 10:57 Dose: 100 ml Documented by: Potassium Chloride (Potassium Chloride 20 Meq Tab.Er) 40 meq PO ONETIME ONE Stop: 06/20/20 08:31 Last Admin: 06/20/20 08:21 Dose: 40 meq Documented by: Sodium Chloride (Sodium Chloride 0.9% 10 Ml Syringe) 10 ml FLUSH ONETIME ONE Stop: 06/19/20 10:08 Last Admin: 06/19/20 10:56 Dose: 10 ml Documented by: - Exam Quality Assessment: No: Supplemental Oxygen General: Alert, Oriented, Cooperative, No Acute Distress Lungs: Normal Respiratory Effort, Crackles (rare left lung base) Cardiovascular: Regular Rate, Regular Rhythm GI/Abdominal Exam: Normal Bowel Sounds, Soft, No Distention Extremities: Pedal Edema. No: Increased Warmth Skin: Warm, Dry Psy/Mental Status: Alert, Normal Affect - Patient Data Lab Results Last 24 hrs: Laboratory Results - last 24 hr 06/19/20 06/19/20 06/20/20 Range/Units 08:55 15:40 05:30 WBC 6.4 (4.5-11.0) K/uL RBC 4.13 L (4.30-5.90) M/uL Hgb 11.7 L (12.0-15.0) g/dL Hct 35.9 L (40.0-54.0) % MCV 87 (80-98) fL MCH 28 (27-31) pg MCHC 33 (32-36) % Plt Count 161 (150-400) K/uL D-Dimer, Quantitative 955.96 H (0.0-500.0) ng/mL Sodium (140-148) mmol/L Potassium (3.6-5.2) mmol/L Chloride (100-108) mmol/L Carbon Dioxide (21-32) mmol/L Anion Gap (5.0-14.0) mmol/L BUN (7-18) mg/dL Creatinine (0.8-1.3) mg/dL Est Cr Clr Drug Dosing mL/min Estimated GFR (MDRD) (>60) Glucose (74-106) mg/dL Calcium (8.5-10.1) mg/dL Magnesium (1.8-2.4) mg/dL Influenza Type A RNA Negative (NEGATIVE) RSV RNA (INAAT) Negative (NEGATIVE) Influenza Type B RNA Negative (NEGATIVE) SARS-CoV-2 RNA (MORIAH) Positive H (NEGATIVE) 06/20/20 Range/Units 05:30 WBC (4.5-11.0) K/uL RBC (4.30-5.90) M/uL Hgb (12.0-15.0) g/dL Hct (40.0-54.0) % MCV (80-98) fL MCH (27-31) pg MCHC (32-36) % Plt Count (150-400) K/uL D-Dimer, Quantitative (0.0-500.0) ng/mL Sodium 137 L (140-148) mmol/L Potassium 3.4 L (3.6-5.2) mmol/L Chloride 99 L (100-108) mmol/L Carbon Dioxide 28 (21-32) mmol/L Anion Gap 13.4 (5.0-14.0) mmol/L BUN 19 H (7-18) mg/dL Creatinine 1.1 (0.8-1.3) mg/dL Est Cr Clr Drug Dosing 38.26 mL/min Estimated GFR (MDRD) > 60 (>60) Glucose 122 H (74-106) mg/dL Calcium 8.7 (8.5-10.1) mg/dL Magnesium 1.6 L (1.8-2.4) mg/dL Influenza Type A RNA (NEGATIVE) RSV RNA (INAAT) (NEGATIVE) Influenza Type B RNA (NEGATIVE) SARS-CoV-2 RNA (MORIAH) (NEGATIVE) Result Diagrams: 06/20/20 05:30 06/20/20 05:30 Sepsis Event Note - Evaluation Sepsis Screening Result: No Definite Risk - Focused Exam Vital Signs: Vital Signs Temp Pulse Pulse Resp BP BP Pulse Ox 06/20/20 09:01 130/52 L 06/20/20 09:00 73 18 116/57 L 97 06/20/20 08:17 68 130/52 L 06/20/20 08:00 36.7 C 70 14 130/52 L 97 06/20/20 07:00 16 124/41 L 96 06/20/20 06:00 15 115/51 L 96 06/20/20 05:00 15 112/50 L 95 06/20/20 04:00 36.7 C 16 129/54 L 96 06/20/20 03:00 19 130/52 L 96 06/20/20 02:00 18 119/47 L 97 06/20/20 01:00 36.2 C 16 118/50 L 97 06/20/20 00:00 13 113/53 L 96 06/19/20 23:00 13 114/52 L 95 06/19/20 22:00 14 119/56 L 94 L - Problem List & Annotations (1) Left lower lobe pneumonia SNOMED Code(s): 384989464 Code(s): J18.9 - PNEUMONIA, UNSPECIFIED ORGANISM Status: Acute Current Visit: Yes Qualifiers: Pneumonia type: due to unspecified organism Qualified Code(s): J18.9 - Pneumonia, unspecified organism (2) Paroxysmal atrial fibrillation with rapid ventricular response SNOMED Code(s): 2243901647 Code(s): I48.0 - PAROXYSMAL ATRIAL FIBRILLATION Status: Acute Current Visit: Yes (3) Diarrhea SNOMED Code(s): 50514137 Code(s): R19.7 - DIARRHEA, UNSPECIFIED Status: Acute Current Visit: Yes Qualifiers: Diarrhea type: presumed infectious Qualified Code(s): R19.7 - Diarrhea, unspecified (4) CAD (coronary artery disease) SNOMED Code(s): 66429747 Code(s): I25.10 - ATHSCL HEART DISEASE OF [place] CORONARY ARTERY W/O ANG PCTRS Status: Chronic Current Visit: No Qualifiers: Coronary Disease-Associated Artery/Lesion type: [place] artery [place] vs. transplanted heart: [place] heart Associated angina: without angina Qualified Code(s): I25.10 - Atherosclerotic heart disease of [place] coronary artery without angina pectoris (5) Aortic stenosis SNOMED Code(s): 88630976 Code(s): I35.0 - NONRHEUMATIC AORTIC (VALVE) STENOSIS Status: Chronic Current Visit: No Qualifiers: Cardiac valve disease etiology: etiology unspecified Qualified Code(s): I35.0 - Nonrheumatic aortic (valve) stenosis - Problem List Review Problem List Initiated/Reviewed/Updated: Yes - My Orders Last 24 Hours: My Active Orders 06/19/20 15:11 Resuscitation Status Routine 06/19/20 15:34 Acetaminophen/HYDROcodone [[place] 325-10 MG] 2 tab PO Q6H PRN Albuterol [Proventil Neb Soln] 2.5 mg NEB Q4H PRN Benzocaine/Cetylpyrd/Menthol [Cepacol Sore Throat] 1 lozenge MUCMEM Q2H PRN Benzonatate [Tessalon Perles] 100 mg PO TID PRN Dextromethorphan/guaiFENesin [Robitussin DM] 10 ml PO Q4H PRN Docusate Sodium/Sennosides [Senna Plus] 1 tab PO BID PRN LORazepam [Ativan] 0.5 mg IVPUSH Q4H PRN LORazepam [Ativan] 0.5 mg PO Q8H PRN Lidocaine 2% [Xylocaine 2% Viscous] 15 ml PO Q4H PRN Magnesium Hydroxide [Milk of Magnesia] 30 ml PO Q12H PRN Morphine 2 mg IVPUSH Q2H PRN Ondansetron [Zofran ODT] 4 mg PO Q6H PRN Ondansetron [Zofran] 4 mg IV Q6H PRN 06/19/20 15:34 Patient Status [ADT] Routine Cardiac Monitoring [RC] Q6H Intake and Output [RC] QSHIFT Notify Provider Vital Signs [RC] ASDIRECTED Oxygen Therapy [RC] PRN RT Aerosol Therapy [RC] ASDIRECTED Up With Assistance [RC] ASDIRECTED VTE/DVT Education [RC] Per Unit Routine Vital Signs [RC] Q1H 06/19/20 16:00 Enoxaparin [Lovenox] 40 mg SUBCUT Q24H 06/19/20 Dinner 2 Gram Sodium Diet [DIET] 06/19/20 18:15 Sodium Chloride 0.9% [Normal Saline] 1,000 ml IV ASDIRECTED 06/19/20 21:00 Lactobacillus Rhamnosus GG [Culturelle] 1 cap PO BID Melatonin 9 mg PO BEDTIME Simvastatin [Zocor] 80 mg PO BEDTIME Tamsulosin [Flomax] 0.4 mg PO BEDTIME hydroCHLOROthiazide 12.5 mg PO BID lisinopriL [Prinivil] 20 mg PO BID 06/20/20 07:00 PT Evaluation and Treatment [CONS] Routine 06/20/20 07:30 Pantoprazole [ProTONIX] 40 mg PO ACBREAKFAST 06/20/20 08:00 Acetaminophen [TylenoL] 650 mg PO ONETIME PRN EPINEPHrine [Adrenalin] 0.3 mg IM ONETIME PRN Famotidine [Pepcid] 20 mg IV ONETIME PRN diphenhydrAMINE [Benadryl] 50 mg IVPUSH ONETIME PRN methylPREDNISolone Sod Succ [Solu-MEDROL] 125 mg IVPUSH ONETIME PRN 06/20/20 09:00 Aspirin [Ecotrin] 325 mg PO DAILY Citalopram [Celexa] 10 mg PO DAILY Diltiazem [Cardizem CD] 180 mg PO DAILY Magnesium Oxide 400 mg PO BID Metoprolol Succinate [Toprol XL] 50 mg PO DAILY 06/20/20 09:30 Casirivimab [Casirivimab (EUA)] 1,200 mg Imdevimab [Imdevimab (EUA)] 1,200 mg Sodium Chloride 0.9% [Normal Saline] 150 ml IV ONETIME 06/21/20 05:00 C-REACTIVE PROTEIN [CHEM] Timed CBC W/O DIFF,HEMOGRAM [HEME] Timed (1) COMPREHENSIVE METABOLIC PN,CMP [CHEM] Timed DD [D-DIMER QUANTITATIVE] [COAG] Timed - Plan Plan:: ASSESSMENT AND PLAN - Paroxysmal atrial fibrillation with rapid ventricular response-he is now back in sinus rhythm and diltiazem infusion has been weaned. Planning transition to oral medications today. -Optimize electrolytes -Transition to oral diltiazem -Continue metoprolol -Continue cardiac monitoring Positive [id number] include fatigue, weakness, cough, shortness of breath, sore throat and diarrhea. Onset of symptoms was 6. The patient is hospitalized but he was hospitalized for the atrial fibrillation, not for his Covid infection. Initially we thought maybe he had a bacterial pneumonia. Given his advanced age, coronary artery disease and chronic kidney disease I believe he has had a very high risk for severe disease and from the Covid infection. We did discuss the potential risks and benefits of monoclonal antibody therapy. I believe he is an appropriate candidate. He is interested in receiving this therapy. -Administer monoclonal antibodies per the protocol this morning -Maintain negative fluid balance -Repeat labs in the morning Coronary artery disease-extensive history. No chest pain overnight. Vital signs stable. -Continue medical management Stage III chronic kidney disease-creatinine near baseline. Maintenance issues - -DVT prophylaxis-enoxaparin -GI prophylaxis-PPI -[id number] CODE STATUS -DNR/DNI Disposition -I anticipate discharge home after the hospital stay Wiliam Franks M.D.
[2020-06-20] MEDS: Enoxaparin 40 MG/0.4 ML Syringe SUBCUT SCH (15:23)
[2020-06-20] MEDS: Tamsulosin 0.4 MG Cap.ER PO SCH (20:24)
[2020-06-20] MEDS: LORazepam 0.5 MG Tab PO PRN (20:24)
[2020-06-20] MEDS: Simvastatin 20 MG Tab PO SCH (20:24)
[2020-06-20] MEDS: Melatonin 3 MG Tab PO SCH (20:25)
[2020-06-20] MEDS ORDERED: Diltiazem 25 MG/5 ML SDV IVPUSH ONE (21:45)
[2020-06-20] MEDS ORDERED: Diltiazem 100 MG AdvVial ONE (21:48)
[2020-06-20] MEDS ORDERED: Diltiazem 25 MG/5 ML SDV ONE (21:49)
[2020-06-20] MEDS ORDERED: Sodium Chloride 0.9% 100 ML ONE (21:50)
[2020-06-20] MEDS ORDERED: Diltiazem 100 MG in Sodium Chloride 0.9% 100 ML IV SCH (22:00)
[2020-06-20] MEDS ORDERED: Bismuth Subsalicylate 262 MG/15 ML Susp 236 ML Bottle PO PRN (22:03)
[2020-06-21] MEDS: Acetaminophen/HYDROcodone 325-10 MG Tab PO PRN ×3 (04:08→23:39)
[2020-06-21] MEDS: Pantoprazole 40 MG Tab.CR PO SCH (08:00)
[2020-06-21] MEDS: Diltiazem 180 MG Cap.CD PO SCH (08:20)
[2020-06-21] MEDS: Lactobacillus Rhamnosus GG (Probiotic) Cap PO SCH ×2 (08:21→21:16)
[2020-06-21] MEDS: Aspirin 325 MG Tab.EC PO SCH (08:21)
[2020-06-21] MEDS: Citalopram 10 MG Tab PO SCH (08:21)
[2020-06-21] MEDS: Metoprolol Succinate 50 MG Tab.ER PO SCH (08:22)
[2020-06-21] MEDS: Magnesium Oxide 400 MG Tab PO SCH ×2 (08:25→21:16)
[2020-06-21] MEDS: Hydrochlorothiazide 12.5 MG Cap PO SCH ×2 (08:25→21:16)
[2020-06-21] MEDS: Lisinopril 20 MG Tab PO SCH ×2 (08:26→21:16)
--- NOTE | 2020-06-21 09:27 | PCM.PN ---
- General Info Date of Service: 06/21/20 Subjective Update: Overnight the patient did have difficulty with some confusion around 9:51 PM. He had an increased respiratory rate and an increased heart rate with more ectopy. Once he settled back into bed his heart rate and oxygenation settled down and he required supplemental oxygen for only a short while. He has not had any fevers. He does not feel short of breath but continues to cough. Sore throat has improved but not quite resolved. Diarrhea seems to have resolved. He tolerated the infusion of monoclonal antibodies well yesterday. He still feels weak and tired but is feeling better. Functional Status: Reports: Pain Controlled, Tolerating Diet - Review of Systems General: Reports: Weakness. Denies: Fever Gastrointestinal: Denies: Diarrhea - Patient Data Vitals - Most Recent: Last Vital Signs Temp 36.9 C 06/21/20 08:00 Pulse 72 06/21/20 08:22 Resp 16 06/21/20 08:00 BP 110/53 L 06/21/20 08:26 Pulse Ox 97 06/21/20 08:00 Weight - Most Recent: 56.109 kg I&O - Last 24 Hours: Intake & Output 06/20/20 06/21/20 06/21/20 22:59 06:59 14:59 Intake Total 1190 600 Output Total 925 200 Balance 265 400 Lab Results Last 24 Hours: Laboratory Results - last 24 hr 06/21/20 06/21/20 06/21/20 Range/Units 06:09 06:09 06:09 WBC 5.6 (4.5-11.0) K/uL RBC 3.65 L (4.30-5.90) M/uL Hgb 10.2 L (12.0-15.0) g/dL Hct 32.0 L (40.0-54.0) % MCV 88 (80-98) fL MCH 28 (27-31) pg MCHC 32 (32-36) % Plt Count 141 L (150-400) K/uL D-Dimer, Quantitative 749.07 H (0.0-500.0) ng/mL Sodium 136 L (140-148) mmol/L Potassium 3.7 (3.6-5.2) mmol/L Chloride 99 L (100-108) mmol/L Carbon Dioxide 28 (21-32) mmol/L Anion Gap 12.7 (5.0-14.0) mmol/L BUN 18 (7-18) mg/dL Creatinine 1.3 (0.8-1.3) mg/dL Est Cr Clr Drug Dosing 32.37 mL/min Estimated GFR (MDRD) 52 L (>60) Glucose 116 H (74-106) mg/dL Calcium 8.1 L (8.5-10.1) mg/dL Total Bilirubin 0.5 (0.2-1.0) mg/dL AST 24 (15-37) U/L ALT 20 (12-78) U/L Alkaline Phosphatase 45 L (46-116) U/L C-Reactive Protein 10.89 H (0.0-0.3) mg/dL Total Protein 5.7 L (6.4-8.2) g/dL Albumin 2.5 L (3.4-5.0) g/dL Globulin 3.2 (2.3-3.5) g/dL Albumin/Globulin Ratio 0.8 L (1.2-2.2) Med Orders - Current: Current Medications Acetaminophen (Acetaminophen 325 Mg Tab) 650 mg PO ONETIME PRN PRN Reason: HEADACHE,CHILLS Hydrocodone Bitart/Acetaminophen (Acetaminophen/Hydrocodone 325-10 Mg Tab) 2 tab PO Q6H PRN PRN Reason: Pain Last Admin: 06/21/20 04:08 Dose: 2 tab Documented by: Albuterol (Albuterol 0.083% 2.5 Mg/3 Ml Neb Soln) 2.5 mg NEB Q4H PRN PRN Reason: Shortness Of Breath/wheezing Aspirin (Aspirin 325 Mg Tab.Ec) 325 mg PO DAILY [facility]ARA Last Admin: 06/21/20 08:21 Dose: 325 mg Documented by: Benzocaine/Menthol (Benzocaine/Cetylpyridinium/Menthol Lozenge) 1 lozenge MUCMEM Q2H PRN PRN Reason: Sore Throat Benzonatate (Benzonatate 100 Mg Cap) 100 mg PO TID PRN PRN Reason: Cough Bismuth Subsalicylate (Bismuth Subsalicylate 262 Mg/15 Ml Susp 236 Ml Bottle) 30 ml PO Q4H PRN PRN Reason: Dyspepsia Citalopram Hydrobromide (Citalopram 10 Mg Tab) 10 mg PO DAILY [facility] Last Admin: 06/21/20 08:21 Dose: 10 mg Documented by: Diltiazem HCl (Diltiazem 180 Mg Cap.Cd) 180 mg PO DAILY [facility] Last Admin: 06/21/20 08:20 Dose: 180 mg Documented by: Enoxaparin Sodium (Enoxaparin 40 Mg/0.4 Ml Syringe) 40 mg SUBCUT Q24H [facility] Last Admin: 06/20/20 15:23 Dose: 40 mg Documented by: Guaifenesin/Dextromethorphan (Guaifenesin/Dextromethorphan 100-10 Mg/5 Ml Soln 10 Ml Cup) 10 ml PO Q4H PRN PRN Reason: Cough Hydrochlorothiazide (Hydrochlorothiazide 12.5 Mg Cap) 12.5 mg PO BID [facility] Last Admin: 06/21/20 08:25 Dose: 12.5 mg Documented by: Lactobacillus Rhamnosus (Lactobacillus Rhamnosus Gg (Probiotic) Cap) 1 cap PO BID [facility] Last Admin: 06/21/20 08:21 Dose: 1 cap Documented by: Lidocaine HCl (Lidocaine 2% Viscous Solution 15 Ml Cup) 15 ml PO Q4H PRN PRN Reason: Sore Throat Lisinopril (Lisinopril 20 Mg Tab) 20 mg PO BID [facility] Last Admin: 06/21/20 08:26 Dose: 20 mg Documented by: Lorazepam (Lorazepam 0.5 Mg Tab) 0.5 mg PO Q8H PRN PRN Reason: Anxiety Last Admin: 06/20/20 20:24 Dose: 0.5 mg Documented by: Lorazepam (Lorazepam 2 Mg/Ml Sdv) 0.5 mg IVPUSH Q4H PRN PRN Reason: Nausea/Vomiting Magnesium Hydroxide (Magnesium Hydroxide 400 Mg/5 Ml Susp 30 Ml Cup) 30 ml PO Q12H PRN PRN Reason: Constipation Magnesium Oxide (Magnesium Oxide 400 Mg Tab) 400 mg PO BID [facility] Last Admin: 06/21/20 08:25 Dose: 400 mg Documented by: Melatonin (Melatonin 3 Mg Tab) 9 mg PO BEDTIME [facility] Last Admin: 06/20/20 20:25 Dose: 9 mg Documented by: Metoprolol Succinate (Metoprolol Succinate 50 Mg Tab.Er) 50 mg PO DAILY [facility] Last Admin: 06/21/20 08:22 Dose: 50 mg Documented by: Morphine Sulfate (Morphine 2 Mg/Ml Syringe) 2 mg IVPUSH Q2H PRN PRN Reason: Pain (severe 7-10) Last Admin: 06/19/20 18:54 Dose: 2 mg Documented by: Ondansetron HCl (Ondansetron 4 Mg/2 Ml Sdv) 4 mg IV Q6H PRN PRN Reason: Nausea/Vomiting Last Admin: 06/20/20 20:26 Dose: 4 mg Documented by: Ondansetron HCl (Ondansetron 4 Mg Tab.Dis) 4 mg PO Q6H PRN PRN Reason: Nausea able to take PO Pantoprazole Sodium (Pantoprazole 40 Mg Tab.Cr) 40 mg PO ACBREAKFAST [facility] Last Admin: 06/21/20 08:00 Dose: 40 mg Documented by: Senna/Docusate Sodium (Docusate Sodium/Sennosides 50-8.6 Mg Tab) 1 tab PO BID PRN PRN Reason: Constipation Simvastatin (Simvastatin 20 Mg Tab) 80 mg PO BEDTIME [facility] Last Admin: 06/20/20 20:24 Dose: 80 mg Documented by: Tamsulosin HCl (Tamsulosin 0.4 Mg Cap.Er) 0.4 mg PO BEDTIME [facility] Last Admin: 06/20/20 20:24 Dose: 0.4 mg Documented by: Discontinued Medications Hydrocodone Bitart/Acetaminophen (Acetaminophen/Hydrocodone 325-10 Mg Tab) 2 tab PO ONETIME ONE Stop: 06/19/20 13:18 Last Admin: 06/19/20 13:26 Dose: 2 tab Documented by: Bismuth Subsalicylate (Bismuth Subsalicylate 262 Mg Tab.Chew) 524 mg PO ONETIME ONE Stop: 06/19/20 15:46 Last Admin: 06/19/20 16:10 Dose: 524 mg Documented by: Diltiazem HCl (Diltiazem 25 Mg/5 Ml Sdv) 15 mg IVPUSH ONETIME ONE Stop: 06/19/20 11:26 Last Admin: 06/19/20 11:33 Dose: 15 mg Documented by: Diltiazem HCl (Diltiazem 25 Mg/5 Ml Sdv) 10 mg IVPUSH ONETIME ONE Stop: 06/20/20 21:46 Last Admin: 04/10/21 22:29 Dose: Not Given Documented by: Diltiazem HCl (Diltiazem 100 Mg Advvial) Confirm Administered Dose 100 mg .ROUTE .STK-MED ONE Stop: 06/20/20 21:49 Last Admin: 06/20/20 22:29 Dose: Not Given Documented by: Diltiazem HCl (Diltiazem 25 Mg/5 Ml Sdv) Confirm Administered Dose 25 mg .ROUTE .STK-MED ONE Stop: 06/20/20 21:50 Last Admin: 06/20/20 22:29 Dose: Not Given Documented by: Diphenhydramine HCl (Diphenhydramine 50 Mg/Ml Sdv) 50 mg IVPUSH ONETIME PRN PRN Reason: ALLERGIC RXN Stop: 06/20/20 16:00 Epinephrine HCl (Epinephrine 1 Mg/Ml Sdv) 0.3 mg IM ONETIME PRN PRN Reason: ALLERGIC RXN Stop: 06/20/20 16:00 Famotidine (Famotidine 20 Mg/2 Ml Sdv) 20 mg IV ONETIME PRN PRN Reason: ALLERGIC RXN Stop: 06/20/20 16:00 Sodium Chloride (Normal Saline) 100 mls @ 4 mls/sec IV ASDIRECTED CLARA Stop: 06/19/20 10:16 Last Admin: 06/19/20 10:56 Dose: 4 mls/sec Documented by: Diltiazem HCl 100 mg/ Sodium (Chloride) 100 mls @ 5 mls/hr IV TITRATE CLARA; Protocol Last Titration: 06/20/20 01:15 Dose: 2.5 mg/hr, 2.5 mls/hr Documented by: Sodium Chloride (Normal Saline) 1,000 mls @ 100 mls/hr IV ASDIRECTED CLARA Last Admin: 06/19/20 16:16 Dose: 100 mls/hr Documented by: Levofloxacin/Dextrose 750 mg/ (Premix) 150 mls @ 100 mls/hr IV Q24H [facility] Last Admin: 06/19/20 16:10 Dose: 100 mls/hr Documented by: Sodium Chloride (Normal Saline) 1,000 mls @ 25 mls/hr IV ASDIRECTED CLARA Non-Formulary Medication 1,200 mg/ Non-Formulary Medication 1,200 mg/ Sodium Chloride 170 mls @ 310 mls/hr IV ONETIME ONE Stop: 06/20/20 10:02 Last Admin: 06/20/20 09:40 Dose: 310 mls/hr Documented by: Diltiazem HCl 100 mg/ Sodium (Chloride) 100 mls @ 5 mls/hr IV TITRATE CLARA; Protocol Sodium Chloride (Normal Saline) Confirm Administered Dose 100 mls @ as directed .ROUTE .STK-MED ONE Stop: 06/20/20 21:51 Last Admin: 06/20/20 22:30 Dose: Not Given Documented by: Iopamidol (Iopamidol 755 Mg/Ml 100 Ml Bottle) 100 ml IV . DIRECTED CLARA Stop: 06/19/20 10:16 Last Admin: 06/19/20 10:57 Dose: 100 ml Documented by: Methylprednisolone Sodium Succinate (Methylprednisolone Sodium Succinate 125 Mg/2 Ml Sdv) 125 mg IVPUSH ONETIME PRN PRN Reason: ALLERGIC RXN Stop: 06/20/20 16:00 Potassium Chloride (Potassium Chloride 20 Meq Tab.Er) 40 meq PO ONETIME ONE Stop: 06/20/20 08:31 Last Admin: 06/20/20 08:21 Dose: 40 meq Documented by: Sodium Chloride (Sodium Chloride 0.9% 10 Ml Syringe) 10 ml FLUSH ONETIME ONE Stop: 06/19/20 10:08 Last Admin: 06/19/20 10:56 Dose: 10 ml Documented by: - Exam Quality Assessment: No: Supplemental Oxygen General: Alert, Oriented, Cooperative, No Acute Distress Lungs: Normal Respiratory Effort. No: Wheezing Cardiovascular: Regular Rate, Regular Rhythm GI/Abdominal Exam: Soft, No Distention Extremities: Pedal Edema. No: Increased Warmth Skin: Warm, Dry Psy/Mental Status: Alert, Normal Affect - Patient Data Lab Results Last 24 hrs: Laboratory Results - last 24 hr 06/21/20 06/21/20 06/21/20 Range/Units 06:09 06:09 06:09 WBC 5.6 (4.5-11.0) K/uL RBC 3.65 L (4.30-5.90) M/uL Hgb 10.2 L (12.0-15.0) g/dL Hct 32.0 L (40.0-54.0) % MCV 88 (80-98) fL MCH 28 (27-31) pg MCHC 32 (32-36) % Plt Count 141 L (150-400) K/uL D-Dimer, Quantitative 749.07 H (0.0-500.0) ng/mL Sodium 136 L (140-148) mmol/L Potassium 3.7 (3.6-5.2) mmol/L Chloride 99 L (100-108) mmol/L Carbon Dioxide 28 (21-32) mmol/L Anion Gap 12.7 (5.0-14.0) mmol/L BUN 18 (7-18) mg/dL Creatinine 1.3 (0.8-1.3) mg/dL Est Cr Clr Drug Dosing 32.37 mL/min Estimated GFR (MDRD) 52 L (>60) Glucose 116 H (74-106) mg/dL Calcium 8.1 L (8.5-10.1) mg/dL Total Bilirubin 0.5 (0.2-1.0) mg/dL AST 24 (15-37) U/L ALT 20 (12-78) U/L Alkaline Phosphatase 45 L (46-116) U/L C-Reactive Protein 10.89 H (0.0-0.3) mg/dL Total Protein 5.7 L (6.4-8.2) g/dL Albumin 2.5 L (3.4-5.0) g/dL Globulin 3.2 (2.3-3.5) g/dL Albumin/Globulin Ratio 0.8 L (1.2-2.2) Result Diagrams: 06/21/20 06:09 06/21/20 06:09 Sepsis Event Note - Evaluation Sepsis Screening Result: No Definite Risk - Focused Exam Vital Signs: Vital Signs Temp Pulse Pulse Resp BP BP Pulse Ox 06/21/20 08:26 110/53 L 06/21/20 08:22 72 110/53 L 06/21/20 08:00 36.9 C 65 16 110/53 L 97 06/21/20 06:00 14 98/45 L 97 06/21/20 04:00 16 114/48 L 100 06/21/20 02:00 36.7 C 15 114/60 97 06/21/20 00:00 36.4 C 14 112/51 L 93 L 06/20/20 22:00 22 H 142/97 H 97 - Problem List & Annotations (1) Left lower lobe pneumonia SNOMED Code(s): 775433053 Code(s): J18.9 - PNEUMONIA, UNSPECIFIED ORGANISM Status: Acute Current Visit: Yes Qualifiers: Pneumonia type: due to unspecified organism Qualified Code(s): J18.9 - Pneumonia, unspecified organism (2) Paroxysmal atrial fibrillation with rapid ventricular response SNOMED Code(s): 6891540928 Code(s): I48.0 - PAROXYSMAL ATRIAL FIBRILLATION Status: Acute Current Visit: Yes (3) Diarrhea SNOMED Code(s): 50605538 Code(s): R19.7 - DIARRHEA, UNSPECIFIED Status: Acute Current Visit: Yes Qualifiers: Diarrhea type: presumed infectious Qualified Code(s): R19.7 - Diarrhea, unspecified (4) CAD (coronary artery disease) SNOMED Code(s): 98572176 Code(s): I25.10 - ATHSCL HEART DISEASE OF [place] CORONARY ARTERY W/O ANG PCTRS Status: Chronic Current Visit: No Qualifiers: Coronary Disease-Associated Artery/Lesion type: [place] artery [place] vs. transplanted heart: [place] heart Associated angina: without angina Qualified Code(s): I25.10 - Atherosclerotic heart disease of [place] coronary artery without angina pectoris (5) Aortic stenosis SNOMED Code(s): 54025298 Code(s): I35.0 - NONRHEUMATIC AORTIC (VALVE) STENOSIS Status: Chronic Current Visit: No Qualifiers: Cardiac valve disease etiology: etiology unspecified Qualified Code(s): I35.0 - Nonrheumatic aortic (valve) stenosis - Problem List Review Problem List Initiated/Reviewed/Updated: Yes - My Orders Last 24 Hours: My Active Orders 06/20/20 09:00 Aspirin [Ecotrin] 325 mg PO DAILY Citalopram [Celexa] 10 mg PO DAILY Diltiazem [Cardizem CD] 180 mg PO DAILY Magnesium Oxide 400 mg PO BID Metoprolol Succinate [Toprol XL] 50 mg PO DAILY 06/20/20 22:03 Bismuth Subsalicylate [Pepto Bismol] 30 ml PO Q4H PRN 06/21/20 09:26 Transfer Patient (Change bed) [ADT] Routine 06/22/20 05:00 BASIC METABOLIC PANEL,BMP [CHEM] Timed C-REACTIVE PROTEIN [CHEM] Timed CBC W/O DIFF,HEMOGRAM [HEME] Timed (1) DD [D-DIMER QUANTITATIVE] [COAG] Timed 06/22/20 07:00 PT Evaluation and Treatment [CONS] Routine - Plan Plan:: ASSESSMENT AND PLAN - Paroxysmal atrial fibrillation with rapid ventricular response-he remains in sinus rhythm with some ectopy though much less so this morning. He has done fairly well off of the diltiazem infusion which was stopped yesterday. -Optimize electrolytes -Continue oral diltiazem -Continue metoprolol -Continue cardiac monitoring Positive [id number] include fatigue, weakness, cough, shortness of breath, sore throat and diarrhea. Onset of symptoms was 06/16. The patient is hospitalized but he was hospitalized for the atrial fibrillation, not for his Covid infection. Given his advanced age, coronary artery disease and chronic kidney disease I believe he had a very high risk for severe disease and from the Covid infection. He tolerated the infusion of monoclonal antibodies well. Seems to be improving. Still weak but other symptoms are improving. -Maintain isolation precautions -Maintain negative fluid balance -Repeat labs in the morning Coronary artery disease-extensive history. No chest pain during the admission. -Continue medical management Stage III chronic kidney disease-creatinine near baseline. Maintenance issues - -DVT prophylaxis-enoxaparin -GI prophylaxis-PPI -[id number] CODE STATUS -DNR/DNI Disposition -I anticipate discharge home possibly with home care after the hospital stay Wiliam Franks M.D.
[2020-06-21] MEDS: Enoxaparin 40 MG/0.4 ML Syringe SUBCUT SCH (16:00)
[2020-06-21] MEDS: Tamsulosin 0.4 MG Cap.ER PO SCH (21:16)
[2020-06-21] MEDS: Melatonin 3 MG Tab PO SCH (21:16)
[2020-06-21] MEDS: Simvastatin 20 MG Tab PO SCH (21:16)
[2020-06-22] MEDS: Acetaminophen/HYDROcodone 325-10 MG Tab PO PRN (05:53)
[2020-06-22] MEDS: Lactobacillus Rhamnosus GG (Probiotic) Cap PO SCH ×2 (08:42→21:25)
[2020-06-22] MEDS: Metoprolol Succinate 50 MG Tab.ER PO SCH (08:42)
[2020-06-22] MEDS: Magnesium Oxide 400 MG Tab PO SCH ×2 (08:43→21:24)
[2020-06-22] MEDS: Aspirin 325 MG Tab.EC PO SCH (08:43)
[2020-06-22] MEDS: Citalopram 10 MG Tab PO SCH (08:43)
[2020-06-22] MEDS: Pantoprazole 40 MG Tab.CR PO SCH (08:43)
[2020-06-22] MEDS: Diltiazem 180 MG Cap.CD PO SCH (08:43)
[2020-06-22] MEDS: Hydrochlorothiazide 12.5 MG Cap PO SCH ×2 (08:43→21:24)
[2020-06-22] MEDS: Lisinopril 20 MG Tab PO SCH ×2 (08:44→21:24)
--- NOTE | 2020-06-22 17:31 | PCM.PN ---
- General Info Date of Service: 06/22/20 Subjective Update: Mr. Medina is felt significantly improved over the last 24 hours. Appetite and overall strength seem to be improving. Heart rate control has been very good with current management. Functional Status: Reports: Tolerating Diet, Ambulating, Urinating - Review of Systems General: Reports: Weakness, Fatigue. Denies: Fever, Chills Pulmonary: Reports: No Symptoms Cardiovascular: Reports: No Symptoms Gastrointestinal: Reports: No Symptoms Genitourinary: Reports: No Symptoms - Patient Data Vitals - Most Recent: Last Vital Signs Temp 98.3 F 06/22/20 14:58 Pulse 62 06/22/20 14:58 Resp 16 06/22/20 14:58 BP 101/43 L 06/22/20 14:58 Pulse Ox 94 L 06/22/20 14:58 Weight - Most Recent: 123 lb I&O - Last 24 Hours: Intake & Output 06/22/20 06/22/20 06/22/20 06:59 14:59 22:59 Output Total 700 Balance -700 Lab Results Last 24 Hours: Laboratory Results - last 24 hr 06/22/20 06/22/20 06/22/20 Range/Units 04:15 04:15 04:15 WBC 3.9 L (4.5-11.0) K/uL RBC 3.63 L (4.30-5.90) M/uL Hgb 10.2 L (12.0-15.0) g/dL Hct 31.7 L (40.0-54.0) % MCV 87 (80-98) fL MCH 28 (27-31) pg MCHC 32 (32-36) % Plt Count 139 L (150-400) K/uL D-Dimer, Quantitative 902.52 H (0.0-500.0) ng/mL Sodium 135 L (140-148) mmol/L Potassium 3.6 (3.6-5.2) mmol/L Chloride 98 L (100-108) mmol/L Carbon Dioxide 27 (21-32) mmol/L Anion Gap 13.6 (5.0-14.0) mmol/L BUN 24 H (7-18) mg/dL Creatinine 1.4 H (0.8-1.3) mg/dL Est Cr Clr Drug Dosing 30.06 mL/min Estimated GFR (MDRD) 48 L (>60) Glucose 105 (74-106) mg/dL Calcium 8.0 L (8.5-10.1) mg/dL C-Reactive Protein 10.64 H (0.0-0.3) mg/dL Med Orders - Current: Current Medications Acetaminophen (Acetaminophen 325 Mg Tab) 650 mg PO ONETIME PRN PRN Reason: HEADACHE,CHILLS Hydrocodone Bitart/Acetaminophen (Acetaminophen/Hydrocodone 325-10 Mg Tab) 2 tab PO Q6H PRN PRN Reason: Pain Last Admin: 06/22/20 05:53 Dose: 2 tab Documented by: Albuterol (Albuterol 0.083% 2.5 Mg/3 Ml Neb Soln) 2.5 mg NEB Q4H PRN PRN Reason: Shortness Of Breath/wheezing Aspirin (Aspirin 325 Mg Tab.Ec) 325 mg PO DAILY [facility] Last Admin: 06/22/20 08:43 Dose: 325 mg Documented by: Benzocaine/Menthol (Benzocaine/Cetylpyridinium/Menthol Lozenge) 1 lozenge MUCME M Q2H PRN PRN Reason: Sore Throat Benzonatate (Benzonatate 100 Mg Cap) 100 mg PO TID PRN PRN Reason: Cough Bismuth Subsalicylate (Bismuth Subsalicylate 262 Mg/15 Ml Susp 236 Ml Bottle) 30 ml PO Q4H PRN PRN Reason: Dyspepsia Citalopram Hydrobromide (Citalopram 10 Mg Tab) 10 mg PO DAILY [facility] Last Admin: 06/22/20 08:43 Dose: 10 mg Documented by: Diltiazem HCl (Diltiazem 180 Mg Cap.Cd) 180 mg PO DAILY [facility] Last Admin: 06/22/20 08:43 Dose: 180 mg Documented by: Enoxaparin Sodium (Enoxaparin 40 Mg/0.4 Ml Syringe) 40 mg SUBCUT Q24H [facility] Last Admin: 06/21/20 16:00 Dose: 40 mg Documented by: Guaifenesin/Dextromethorphan (Guaifenesin/Dextromethorphan 100-10 Mg/5 Ml Soln 10 Ml Cup) 10 ml PO Q4H PRN PRN Reason: Cough Hydrochlorothiazide (Hydrochlorothiazide 12.5 Mg Cap) 12.5 mg PO BID [facility] Last Admin: 06/22/20 08:43 Dose: 12.5 mg Documented by: Lactobacillus Rhamnosus (Lactobacillus Rhamnosus Gg (Probiotic) Cap) 1 cap PO BID [facility] Last Admin: 06/22/20 08:42 Dose: 1 cap Documented by: Lidocaine HCl (Lidocaine 2% Viscous Solution 15 Ml Cup) 15 ml PO Q4H PRN PRN Reason: Sore Throat Lisinopril (Lisinopril 20 Mg Tab) 20 mg PO BID [facility] Last Admin: 06/22/20 08:44 Dose: 20 mg Documented by: Lorazepam (Lorazepam 0.5 Mg Tab) 0.5 mg PO Q8H PRN PRN Reason: Anxiety Last Admin: 06/20/20 20:24 Dose: 0.5 mg Documented by: Lorazepam (Lorazepam 2 Mg/Ml Sdv) 0.5 mg IVPUSH Q4H PRN PRN Reason: Nausea/Vomiting Magnesium Hydroxide (Magnesium Hydroxide 400 Mg/5 Ml Susp 30 Ml Cup) 30 ml PO Q12H PRN PRN Reason: Constipation Magnesium Oxide (Magnesium Oxide 400 Mg Tab) 400 mg PO BID [facility] Last Admin: 06/22/20 08:43 Dose: 400 mg Documented by: Melatonin (Melatonin 3 Mg Tab) 9 mg PO BEDTIME [facility] Last Admin: 06/21/20 21:16 Dose: 9 mg Documented by: Metoprolol Succinate (Metoprolol Succinate 50 Mg Tab.Er) 50 mg PO DAILY [facility] Last Admin: 06/22/20 08:42 Dose: 50 mg Documented by: Morphine Sulfate (Morphine 2 Mg/Ml Syringe) 2 mg IVPUSH Q2H PRN PRN Reason: Pain (severe 7-10) Last Admin: 06/19/20 18:54 Dose: 2 mg Documented by: Ondansetron HCl (Ondansetron 4 Mg/2 Ml Sdv) 4 mg IV Q6H PRN PRN Reason: Nausea/Vomiting Last Admin: 06/20/20 20:26 Dose: 4 mg Documented by: Ondansetron HCl (Ondansetron 4 Mg Tab.Dis) 4 mg PO Q6H PRN PRN Reason: Nausea able to take PO Pantoprazole Sodium (Pantoprazole 40 Mg Tab.Cr) 40 mg PO ACBREAKFAST [facility] Last Admin: 06/22/20 08:43 Dose: 40 mg Documented by: Senna/Docusate Sodium (Docusate Sodium/Sennosides 50-8.6 Mg Tab) 1 tab PO BID PRN PRN Reason: Constipation Simvastatin (Simvastatin 20 Mg Tab) 80 mg PO BEDTIME [facility] Last Admin: 06/21/20 21:16 Dose: 80 mg Documented by: Tamsulosin HCl (Tamsulosin 0.4 Mg Cap.Er) 0.4 mg PO BEDTIME [facility] Last Admin: 06/21/20 21:16 Dose: 0.4 mg Documented by: Discontinued Medications Hydrocodone Bitart/Acetaminophen (Acetaminophen/Hydrocodone 325-10 Mg Tab) 2 tab PO ONETIME ONE Stop: 06/19/20 13:18 Last Admin: 06/19/20 13:26 Dose: 2 tab Documented by: Bismuth Subsalicylate (Bismuth Subsalicylate 262 Mg Tab.Chew) 524 mg PO ONETIME ONE Stop: 06/19/20 15:46 Last Admin: 06/19/20 16:10 Dose: 524 mg Documented by: Diltiazem HCl (Diltiazem 25 Mg/5 Ml Sdv) 15 mg IVPUSH ONETIME ONE Stop: 06/19/20 11:26 Last Admin: 06/19/20 11:33 Dose: 15 mg Documented by: Diltiazem HCl (Diltiazem 25 Mg/5 Ml Sdv) 10 mg IVPUSH ONETIME ONE Stop: 06/20/20 21:46 Last Admin: 06/20/20 22:29 Dose: Not Given Documented by: Diltiazem HCl (Diltiazem 100 Mg Advvial) Confirm Administered Dose 100 mg .ROUTE .STK-MED ONE Stop: 06/20/20 21:49 Last Admin: 06/20/20 22:29 Dose: Not Given Documented by: Diltiazem HCl (Diltiazem 25 Mg/5 Ml Sdv) Confirm Administered Dose 25 mg .ROUTE .STK-MED ONE Stop: 06/20/20 21:50 Last Admin: 06/20/20 22:29 Dose: Not Given Documented by: Diphenhydramine HCl (Diphenhydramine 50 Mg/Ml Sdv) 50 mg IVPUSH ONETIME PRN PRN Reason: ALLERGIC RXN Stop: 06/20/20 16:00 Epinephrine HCl (Epinephrine 1 Mg/Ml Sdv) 0.3 mg IM ONETIME PRN PRN Reason: ALLERGIC RXN Stop: 06/20/20 16:00 Famotidine (Famotidine 20 Mg/2 Ml Sdv) 20 mg IV ONETIME PRN PRN Reason: ALLERGIC RXN Stop: 06/20/20 16:00 Sodium Chloride (Normal Saline) 100 mls @ 4 mls/sec IV ASDIRECTED [facility] Stop: 06/19/20 10:16 Last Admin: 06/19/20 10:56 Dose: 4 mls/sec Documented by: Diltiazem HCl 100 mg/ Sodium (Chloride) 100 mls @ 5 mls/hr IV TITRATE [facility]; Protocol Last Titration: 06/20/20 01:15 Dose: 2.5 mg/hr, 2.5 mls/hr Documented by: Sodium Chloride (Normal Saline) 1,000 mls @ 100 mls/hr IV ASDIRECTED [facility] Last Admin: 06/19/20 16:16 Dose: 100 mls/hr Documented by: Levofloxacin/Dextrose 750 mg/ (Premix) 150 mls @ 100 mls/hr IV Q24H [facility] Last Admin: 06/19/20 16:10 Dose: 100 mls/hr Documented by: Sodium Chloride (Normal Saline) 1,000 mls @ 25 mls/hr IV ASDIRECTED [facility] Non-Formulary Medication 1,200 mg/ Non-Formulary Medication 1,200 mg/ Sodium Chloride 170 mls @ 310 mls/hr IV ONETIME ONE Stop: 06/20/20 10:02 Last Admin: 06/20/20 09:40 Dose: 310 mls/hr Documented by: Diltiazem HCl 100 mg/ Sodium (Chloride) 100 mls @ 5 mls/hr IV TITRATE [facility]; Protocol Sodium Chloride (Normal Saline) Confirm Administered Dose 100 mls @ as directed .ROUTE .STK-MED ONE Stop: 06/20/20 21:51 Last Admin: 06/20/20 22:30 Dose: Not Given Documented by: Iopamidol (Iopamidol 755 Mg/Ml 100 Ml Bottle) 100 ml IV . DIRECTED [facility] Stop: 06/19/20 10:16 Last Admin: 06/19/20 10:57 Dose: 100 ml Documented by: Methylprednisolone Sodium Succinate (Methylprednisolone Sodium Succinate 125 Mg/2 Ml Sdv) 125 mg IVPUSH ONETIME PRN PRN Reason: ALLERGIC RXN Stop: 06/20/20 16:00 Potassium Chloride (Potassium Chloride 20 Meq Tab.Er) 40 meq PO ONETIME ONE Stop: 06/20/20 08:31 Last Admin: 06/20/20 08:21 Dose: 40 meq Documented by: Sodium Chloride (Sodium Chloride 0.9% 10 Ml Syringe) 10 ml FLUSH ONETIME ONE Stop: 06/19/20 10:08 Last Admin: 06/19/20 10:56 Dose: 10 ml Documented by: - Exam Quality Assessment: DVT Prophylaxis General: Alert, Oriented, Cooperative, Mild Distress Lungs: Clear to Auscultation, Normal Respiratory Effort Cardiovascular: Regular Rate, No Murmurs, Irregular Rhythm GI/Abdominal Exam: Soft, Non-Tender, No Organomegaly, No Distention Extremities: Non-Tender, No Pedal Edema - Patient Data Lab Results Last 24 hrs: Laboratory Results - last 24 hr 06/22/20 06/22/20 06/22/20 Range/Units 04:15 04:15 04:15 WBC 3.9 L (4.5-11.0) K/uL RBC 3.63 L (4.30-5.90) M/uL Hgb 10.2 L (12.0-15.0) g/dL Hct 31.7 L (40.0-54.0) % MCV 87 (80-98) fL MCH 28 (27-31) pg MCHC 32 (32-36) % Plt Count 139 L (150-400) K/uL D-Dimer, Quantitative 902.52 H (0.0-500.0) ng/mL Sodium 135 L (140-148) mmol/L Potassium 3.6 (3.6-5.2) mmol/L Chloride 98 L (100-108) mmol/L Carbon Dioxide 27 (21-32) mmol/L Anion Gap 13.6 (5.0-14.0) mmol/L BUN 24 H (7-18) mg/dL Creatinine 1.4 H (0.8-1.3) mg/dL Est Cr Clr Drug Dosing 30.06 mL/min Estimated GFR (MDRD) 48 L (>60) Glucose 105 (74-106) mg/dL Calcium 8.0 L (8.5-10.1) mg/dL C-Reactive Protein 10.64 H (0.0-0.3) mg/dL Result Diagrams: 06/22/20 04:15 06/22/20 04:15 Sepsis Event Note - Evaluation Sepsis Screening Result: No Definite Risk - Focused Exam Vital Signs: Vital Signs Temp Pulse Pulse Resp BP BP Pulse Ox 06/22/20 14:58 98.3 F 62 16 101/43 L 94 L 06/22/20 11:00 16 148/45 H 96 06/22/20 08:44 110/45 L 06/22/20 08:42 70 115/45 L 06/22/20 07:52 97.7 F 70 18 115/45 L 93 L - Problem List Review Problem List Initiated/Reviewed/Updated: Yes - My Orders Last 24 Hours: My Active Orders 06/23/20 05:00 COMPREHENSIVE METABOLIC PN,CMP [CHEM] Timed 06/23/20 05:11 CRP [C-REACTIVE PROTEIN] [CHEM] AM D Dimer [D-DIMER QUANTITATIVE] [COAG] AM - Plan Plan:: ASSESSMENT AND PLAN - Paroxysmal atrial fibrillation with rapid ventricular response-he remains in sinus rhythm with some ectopy though much less so this morning. -Optimize electrolytes -Continue oral diltiazem -Continue metoprolol -Continue cardiac monitoring Positive [id number] improved after he received monoclonal antibody infusion -Maintain isolation precautions -Maintain negative fluid balance -Repeat labs in the morning Coronary artery disease-extensive history. No chest pain during the admission. -Continue medical management Stage III chronic kidney disease-creatinine near baseline. Maintenance issues - -DVT prophylaxis-enoxaparin -GI prophylaxis-PPI -[id number] CODE STATUS -DNR/DNI Disposition -I anticipate discharge home tomorrow
[2020-06-22] MEDS: Enoxaparin 40 MG/0.4 ML Syringe SUBCUT SCH (18:06)
[2020-06-22] MEDS: LORazepam 0.5 MG Tab PO PRN (19:28)
[2020-06-22] MEDS: Melatonin 3 MG Tab PO SCH (21:24)
[2020-06-22] MEDS: Simvastatin 20 MG Tab PO SCH (21:25)
[2020-06-22] MEDS: Tamsulosin 0.4 MG Cap.ER PO SCH (21:25)
[2020-06-23] MEDS: Magnesium Oxide 400 MG Tab PO SCH (08:08)
[2020-06-23] MEDS: Pantoprazole 40 MG Tab.CR PO SCH (08:09)
[2020-06-23] MEDS: Diltiazem 180 MG Cap.CD PO SCH (08:09)
[2020-06-23] MEDS: Hydrochlorothiazide 12.5 MG Cap PO SCH (08:09)
[2020-06-23] MEDS: Lisinopril 20 MG Tab PO SCH (08:10)
[2020-06-23] MEDS: Aspirin 325 MG Tab.EC PO SCH (08:10)
[2020-06-23] MEDS: Metoprolol Succinate 50 MG Tab.ER PO SCH (08:10)
[2020-06-23] MEDS: Citalopram 10 MG Tab PO SCH (08:11)
[2020-06-23] MEDS: Lactobacillus Rhamnosus GG (Probiotic) Cap PO SCH (08:11)
[2020-06-23 10:58] VITALS: BP 123/49; PULSE 62
--- NOTE | 2020-06-23 13:26 | PCM.DCSUM1 ---
Discharge Summary - Hospital Course Brief History: Mr. Medina is an 84-year-old gentleman who was admitted through the emergency department with weakness, diarrhea, cough, syncope, secondary to COVID-19 infection and atrial fibrillation with rapid ventricular response - Discharge Data Discharge Date: 06/23/20 Discharge Disposition: Home, Self-Care 01 Condition: Good - Referral to Home Health Primary Care Physician: Marciano Orlando MD - Discharge Diagnosis/Problem(s) (1) Paroxysmal atrial fibrillation with rapid ventricular response SNOMED Code(s): 7243639648 ICD Code: I48.0 - PAROXYSMAL ATRIAL FIBRILLATION Status: Acute Current Visit: Yes (2) COVID-19 SNOMED Code(s): 262989033 ICD Code: U07.1 - COVID-19 Status: Acute Current Visit: Yes (3) CKD (chronic kidney disease) stage 3, GFR 30-59 ml/min SNOMED Code(s): 065971909 ICD Code: N18.30 - CHRONIC KIDNEY DISEASE, STAGE 3 UNSPECIFIED Status: Acute Current Visit: Yes (4) CAD (coronary artery disease) SNOMED Code(s): 23900498 ICD Code: I25.10 - ATHSCL HEART DISEASE OF [place] CORONARY ARTERY W/O ANG PCTRS Status: Chronic Current Visit: No Qualifiers: Coronary Disease-Associated Artery/Lesion type: [place] artery [place] vs. transplanted heart: [place] heart Associated angina: without angina Qualified Code(s): I25.10 - Atherosclerotic heart disease of [place] coronary artery without angina pectoris - Patient Summary/Data Consults: Consultations 06/22/20 07:00 PT Evaluation and Treatment [CONS] Routine Please Evaluate and Treat. PT Reason for Consult: Strengthening This query below is only for informational purposes and is not editable. Admission Diagnosis/Problem: Pneumonia Hospital Course: Mr. Medina presented to the emergency room after an episode of syncope. He reports several days of diarrhea and poor intake and thinks that he is getting dehydrated because of the diarrhea. He felt a little dizzy before he collapsed on the floor. He feels a little short of breath and has been coughing. He had some chest pain yesterday but none today. He reports intermittent watery diarrhea that is somewhat urgent. He does have some abdominal pain which is mild and crampy. He has been taking his usual pain pills and they do seem to help some. He has aches and pains in most of his joints but this is chronic and stable. He was seen in the emergency room yesterday but work-up was reassuring and he wanted to try it at home. Work-up in the emergency room revealed evidence for mild dehydration. He was in atrial fibrillation with a rapid ventricular response and was started on a diltiazem infusion. His D-dimer was elevated so a CT pulmonary angiogram was obtained. There was no PE but it did show a left lower lobe pneumonia/pneumonitis. COVID-19 testing was done prior to admission and did come back positive. It was felt likely that infiltrate noted on CT scan was secondary to his current Covid infection. He was continued on IV diltiazem after admission and later spontaneously converted to sinus rhythm with frequent premature ventricular complexes. He was not specifically admitted for Covid infection and was found to be at high risk for progression. For this reason he was treated with IV monoclonal antibody after admission to the hospital. He improved significantly following monoclonal antibody infusion. By the time of discharge denied significant shortness of breath with resolution of most of his other symptoms. Follow-up appointment will be scheduled with his primary care provider within 1 week. Activity will be as tolerated and he will resume his usual diet. - Patient Instructions Diet: Usual Diet as Tolerated Activity: As Tolerated Other/Special Instructions: Please schedule follow-up appointment with primary care provider within 1 week. - Discharge Plan *PRESCRIPTION DRUG MONITORING PROGRAM REVIEWED*: Not Applicable *COPY OF PRESCRIPTION DRUG MONITORING REPORT IN PATIENT JOEL: Not Applicable Home Medications: Home Meds Aspirin 81 mg PO DAILY 08/10/13 [History] Lisinopril/Hydrochlorothiazide [Lisinopril-Hctz 20-12.5 mg Tab] 1 each PO BID 08/10/13 [History] Metoprolol Succinate [Toprol XL 50mg] 1 tab PO DAILY 08/10/13 [History] Nitroglycerin 0.4 mg SL ASDIRECTED PRN 08/10/13 [History] dilTIAZem HCL [Diltiazem 12Hr ER] 90 mg PO BID 08/10/13 [History] Hydrocodone/Acetaminophen [Hydrocodon-Acetaminophn 10-325] 2 tab PO Q8H PRN 01/02/19 [History] LORazepam 0.5 mg PO Q8H PRN 10/23/19 [History] Tamsulosin [Flomax] 0.4 mg PO BEDTIME #30 cap.er 09/06/19 [Rx] Citalopram [Citalopram HBr] 10 mg PO DAILY 06/18/20 [History] Pantoprazole [ProTONIX] 40 mg PO DAILY 06/18/20 [History] Simvastatin 80 mg PO BEDTIME 06/18/20 [History] Patient Handouts: Atrial Fibrillation, Prevent the Spread of COVID-19 if You Are Sick - [facility] Referrals: Marciano Orlando MD [Primary Care Provider] - 07/03/20 1:30 pm (Please arrive 15 minutes early to register for your appointment.) - Discharge Summary/Plan Comment DC Time >30 min.: No - Patient Data Vitals - Most Recent: Last Vital Signs Temp 98.1 F 06/23/20 10:56 Pulse 62 06/23/20 10:56 Resp 20 06/23/20 10:56 BP 123/49 L 06/23/20 10:56 Pulse Ox 97 06/23/20 12:56 Weight - Most Recent: 123 lb I&O - Last 24 hours: Intake & Output 06/22/20 06/23/20 06/23/20 22:59 06:59 14:59 Intake Total 500 Balance 500 Lab Results - Last 24 hrs: Laboratory Results - last 24 hr 06/23/20 06/23/20 06/23/20 Range/Units 05:18 05:18 05:18 D-Dimer, Quantitative 1261.19 H (0.0-500.0) ng/mL Sodium 137 L (140-148) mmol/L Potassium 4.1 (3.6-5.2) mmol/L Chloride 99 L (100-108) mmol/L Carbon Dioxide 29 (21-32) mmol/L Anion Gap 13.1 (5.0-14.0) mmol/L BUN 24 H (7-18) mg/dL Creatinine 1.2 (0.8-1.3) mg/dL Est Cr Clr Drug Dosing 34.87 mL/min Estimated GFR (MDRD) 57 L (>60) Glucose 120 H (74-106) mg/dL Calcium 8.6 (8.5-10.1) mg/dL Total Bilirubin 0.6 (0.2-1.0) mg/dL AST 26 (15-37) U/L ALT 28 (12-78) U/L Alkaline Phosphatase 50 (46-116) U/L C-Reactive Protein 5.57 H (0.0-0.3) mg/dL Total Protein 6.1 L (6.4-8.2) g/dL Albumin 2.6 L (3.4-5.0) g/dL Globulin 3.5 (2.3-3.5) g/dL Albumin/Globulin Ratio 0.7 L (1.2-2.2) Med Orders - Current: Current Medications Acetaminophen (Acetaminophen 325 Mg Tab) 650 mg PO ONETIME PRN PRN Reason: HEADACHE,CHILLS Last Admin: 06/22/20 21:15 Dose: 650 mg Documented by: Hydrocodone Bitart/Acetaminophen (Acetaminophen/Hydrocodone 325-10 Mg Tab) 2 tab PO Q6H PRN PRN Reason: Pain Last Admin: 06/22/20 05:53 Dose: 2 tab Documented by: Albuterol (Albuterol 0.083% 2.5 Mg/3 Ml Neb Soln) 2.5 mg NEB Q4H PRN PRN Reason: Shortness Of Breath/wheezing Aspirin (Aspirin 325 Mg Tab.Ec) 325 mg PO DAILY [facility] Last Admin: 06/23/20 08:10 Dose: 325 mg Documented by: Benzocaine/Menthol (Benzocaine/Cetylpyridinium/Menthol Lozenge) 1 lozenge MUCMEM Q2H PRN PRN Reason: Sore Throat Benzonatate (Benzonatate 100 Mg Cap) 100 mg PO TID PRN PRN Reason: Cough Bismuth Subsalicylate (Bismuth Subsalicylate 262 Mg/15 Ml Susp 236 Ml Bottle) 30 ml PO Q4H PRN PRN Reason: Dyspepsia Last Admin: 06/23/20 12:37 Dose: 30 ml Documented by: Citalopram Hydrobromide (Citalopram 10 Mg Tab) 10 mg PO DAILY [facility] Last Admin: 06/23/20 08:11 Dose: 10 mg Documented by: Diltiazem HCl (Diltiazem 180 Mg Cap.Cd) 180 mg PO DAILY [facility] Last Admin: 06/23/20 08:09 Dose: 180 mg Documented by: Enoxaparin Sodium (Enoxaparin 40 Mg/0.4 Ml Syringe) 40 mg SUBCUT Q24H [facility] Last Admin: 06/22/20 18:06 Dose: 40 mg Documented by: Guaifenesin/Dextromethorphan (Guaifenesin/Dextromethorphan 100-10 Mg/5 Ml Soln 10 Ml Cup) 10 ml PO Q4H PRN PRN Reason: Cough Hydrochlorothiazide (Hydrochlorothiazide 12.5 Mg Cap) 12.5 mg PO BID [facility] Last Admin: 06/23/20 08:09 Dose: 12.5 mg Documented by: Lactobacillus Rhamnosus (Lactobacillus Rhamnosus Gg (Probiotic) Cap) 1 cap PO BID [facility] Last Admin: 06/23/20 08:11 Dose: 1 cap Documented by: Lidocaine HCl (Lidocaine 2% Viscous Solution 15 Ml Cup) 15 ml PO Q4H PRN PRN Reason: Sore Throat Lisinopril (Lisinopril 20 Mg Tab) 20 mg PO BID [facility] Last Admin: 06/23/20 08:10 Dose: 20 mg Documented by: Lorazepam (Lorazepam 0.5 Mg Tab) 0.5 mg PO Q8H PRN PRN Reason: Anxiety Last Admin: 06/22/20 19:28 Dose: 0.5 mg Documented by: Lorazepam (Lorazepam 2 Mg/Ml Sdv) 0.5 mg IVPUSH Q4H PRN PRN Reason: Nausea/Vomiting Magnesium Hydroxide (Magnesium Hydroxide 400 Mg/5 Ml Susp 30 Ml Cup) 30 ml PO Q12H PRN PRN Reason: Constipation Magnesium Oxide (Magnesium Oxide 400 Mg Tab) 400 mg PO BID [facility] Last Admin: 06/23/20 08:08 Dose: 400 mg Documented by: Melatonin (Melatonin 3 Mg Tab) 9 mg PO BEDTIME [facility] Last Admin: 06/22/20 21:24 Dose: 9 mg Documented by: Metoprolol Succinate (Metoprolol Succinate 50 Mg Tab.Er) 50 mg PO DAILY [facility] Last Admin: 06/23/20 08:10 Dose: 50 mg Documented by: Morphine Sulfate (Morphine 2 Mg/Ml Syringe) 2 mg IVPUSH Q2H PRN PRN Reason: Pain (severe 7-10) Last Admin: 06/19/20 18:54 Dose: 2 mg Documented by: Ondansetron HCl (Ondansetron 4 Mg/2 Ml Sdv) 4 mg IV Q6H PRN PRN Reason: Nausea/Vomiting Last Admin: 06/20/20 20:26 Dose: 4 mg Documented by: Ondansetron HCl (Ondansetron 4 Mg Tab.Dis) 4 mg PO Q6H PRN PRN Reason: Nausea able to take PO Last Admin: 06/23/20 13:00 Dose: 4 mg Documented by: Pantoprazole Sodium (Pantoprazole 40 Mg Tab.Cr) 40 mg PO ACBREAKFAST [facility] Last Admin: 06/23/20 08:09 Dose: 40 mg Documented by: Senna/Docusate Sodium (Docusate Sodium/Sennosides 50-8.6 Mg Tab) 1 tab PO BID PRN PRN Reason: Constipation Simvastatin (Simvastatin 20 Mg Tab) 80 mg PO BEDTIME [facility] Last Admin: 06/22/20 21:25 Dose: 80 mg Documented by: Tamsulosin HCl (Tamsulosin 0.4 Mg Cap.Er) 0.4 mg PO BEDTIME [facility] Last Admin: 06/22/20 21:25 Dose: 0.4 mg Documented by: Discontinued Medications Hydrocodone Bitart/Acetaminophen (Acetaminophen/Hydrocodone 325-10 Mg Tab) 2 tab PO ONETIME ONE Stop: 06/19/20 13:18 Last Admin: 06/19/20 13:26 Dose: 2 tab Documented by: Bismuth Subsalicylate (Bismuth Subsalicylate 262 Mg Tab.Chew) 524 mg PO ONETIME ONE Stop: 06/19/20 15:46 Last Admin: 06/19/20 16:10 Dose: 524 mg Documented by: Diltiazem HCl (Diltiazem 25 Mg/5 Ml Sdv) 15 mg IVPUSH ONETIME ONE Stop: 06/19/20 11:26 Last Admin: 06/19/20 11:33 Dose: 15 mg Documented by: Diltiazem HCl (Diltiazem 25 Mg/5 Ml Sdv) 10 mg IVPUSH ONETIME ONE Stop: 06/20/20 21:46 Last Admin: 06/20/20 22:29 Dose: Not Given Documented by: Diltiazem HCl (Diltiazem 100 Mg Advvial) Confirm Administered Dose 100 mg .ROUTE .STK-MED ONE Stop: 06/20/20 21:49 Last Admin: 06/20/20 22:29 Dose: Not Given Documented by: Diltiazem HCl (Diltiazem 25 Mg/5 Ml Sdv) Confirm Administered Dose 25 mg .ROUTE .STK-MED ONE Stop: 06/20/20 21:50 Last Admin: 06/20/20 22:29 Dose: Not Given Documented by: Diphenhydramine HCl (Diphenhydramine 50 Mg/Ml Sdv) 50 mg IVPUSH ONETIME PRN PRN Reason: ALLERGIC RXN Stop: 06/20/20 16:00 Epinephrine HCl (Epinephrine 1 Mg/Ml Sdv) 0.3 mg IM ONETIME PRN PRN Reason: ALLERGIC RXN Stop: 06/20/20 16:00 Famotidine (Famotidine 20 Mg/2 Ml Sdv) 20 mg IV ONETIME PRN PRN Reason: ALLERGIC RXN Stop: 06/20/20 16:00 Sodium Chloride (Normal Saline) 100 mls @ 4 mls/sec IV ASDIRECTED CLARA Stop: 06/19/20 10:16 Last Admin: 06/19/20 10:56 Dose: 4 mls/sec Documented by: Diltiazem HCl 100 mg/ Sodium (Chloride) 100 mls @ 5 mls/hr IV TITRATE CLARA; Protocol Last Titration: 06/20/20 01:15 Dose: 2.5 mg/hr, 2.5 mls/hr Documented by: Sodium Chloride (Normal Saline) 1,000 mls @ 100 mls/hr IV ASDIRECTED CLARA Last Admin: 06/19/20 16:16 Dose: 100 mls/hr Documented by: Levofloxacin/Dextrose 750 mg/ (Premix) 150 mls @ 100 mls/hr IV Q24H CLARA Last Admin: 06/19/20 16:10 Dose: 100 mls/hr Documented by: Sodium Chloride (Normal Saline) 1,000 mls @ 25 mls/hr IV ASDIRECTED [facility] Non-Formulary Medication 1,200 mg/ Non-Formulary Medication 1,200 mg/ Sodium Chloride 170 mls @ 310 mls/hr IV ONETIME ONE Stop: 06/20/20 10:02 Last Admin: 06/20/20 09:40 Dose: 310 mls/hr Documented by: Diltiazem HCl 100 mg/ Sodium (Chloride) 100 mls @ 5 mls/hr IV TITRATE CLARA; Protocol Sodium Chloride (Normal Saline) Confirm Administered Dose 100 mls @ as directed .ROUTE .STK-MED ONE Stop: 06/20/20 21:51 Last Admin: 06/20/20 22:30 Dose: Not Given Documented by: Iopamidol (Iopamidol 755 Mg/Ml 100 Ml Bottle) 100 ml IV . DIRECTED CLARA Stop: 06/19/20 10:16 Last Admin: 06/19/20 10:57 Dose: 100 ml Documented by: Methylprednisolone Sodium Succinate (Methylprednisolone Sodium Succinate 125 Mg/2 Ml Sdv) 125 mg IVPUSH ONETIME PRN PRN Reason: ALLERGIC RXN Stop: 06/20/20 16:00 Potassium Chloride (Potassium Chloride 20 Meq Tab.Er) 40 meq PO ONETIME ONE Stop: 06/20/20 08:31 Last Admin: 06/20/20 08:21 Dose: 40 meq Documented by: Sodium Chloride (Sodium Chloride 0.9% 10 Ml Syringe) 10 ml FLUSH ONETIME ONE Stop: 06/19/20 10:08 Last Admin: 06/19/20 10:56 Dose: 10 ml Documented by: - Exam General: Reports: Alert, Oriented, Cooperative, Mild Distress Lungs: Reports: Clear to Auscultation, Normal Respiratory Effort Cardiovascular: Reports: Regular Rate, Regular Rhythm, No Murmurs GI/Abdominal Exam: Soft, Non-Tender, No Organomegaly, No Distention Extremities: Non-Tender, No Pedal Edema
== END 2020-06-23 14:20 | disposition home or self-care (01) | DRG 177 ==
LOC: JP.ED 08:03 → JP.ICU 15:08 → JP.MS 06-21 13:40 → JP.2SS 06-22 11:00
PROVIDERS: ADMIT Internal Medicine; ATTEND Hospitalist
PROC: XW033H6 Introduction of Other New Technology Monoclonal Antibody into Peripheral Vein, Percutaneous Approach, New Technology Group 6 (ICD-10-PCS; principal; 2020-06-19)
PROC: 8E0ZXY6 Isolation (ICD-10-PCS; 2020-06-19)
DX: I48.91 Unspecified atrial fibrillation (principal); U07.1 COVID-19; J12.82 Pneumonia due to coronavirus disease 2019; H54.7 Unspecified visual loss; Z95.5 Presence of coronary angioplasty implant and graft; Z95.1 Presence of aortocoronary bypass graft; I10 Essential (primary) hypertension; K57.90 Diverticulosis of intestine, part unspecified, without perforation or abscess without bleeding; K21.9 Gastro-esophageal reflux disease without esophagitis; M19.90 Unspecified osteoarthritis, unspecified site; I48.0 Paroxysmal atrial fibrillation; M54.9 Dorsalgia, unspecified; F32.9 Major depressive disorder, single episode, unspecified; F41.9 Anxiety disorder, unspecified; Z85.828 Personal history of other malignant neoplasm of skin; Z87.891 Personal history of nicotine dependence; Z66 Do not resuscitate; N18.30 Chronic kidney disease, stage 3 unspecified; I25.10 Atherosclerotic heart disease of native coronary artery without angina pectoris; E86.0 Dehydration; G89.29 Other chronic pain; R79.1 Abnormal coagulation profile; Z79.82 Long term (current) use of aspirin; Z79.899 Other long term (current) drug therapy; R19.7 Diarrhea, unspecified; I35.0 Nonrheumatic aortic (valve) stenosis; I49.3 Ventricular premature depolarization
CPT/HCPCS: 0241U; 36415; 71275; 80048; 80053; 83605; 83735; 84484; 85025; 85027; 85379; 86140; 93005; 94762; 96374; 96375; 97162; 97530; 99285; 99223; 99232; 99238; A9270-GY; J1650; J1956; J2270; J2405; J3490; J7030; Q0243; Q9967

== ENCOUNTER 2020-07-13 21:03 | Inpatient (IN) | payer MEDICARE, BC ==
[2020-07-13] MEDS ORDERED: Sodium Chloride 0.9% 10 ML Syringe FLUSH PRN (21:15)
[2020-07-13] MEDS ORDERED: fentaNYL 100 MCG/2 ML SDV IVPUSH ONE (21:16)
[2020-07-13] MEDS ORDERED: Ondansetron 4 MG/2 ML SDV IVPUSH ONE (21:16)
--- NOTE | 2020-07-13 21:19 | EDM.PDOC ---
ED HPI GENERAL MEDICAL PROBLEM - General Chief Complaint: Abdominal Pain Stated Complaint: [facility] Time Seen by Provider: 07/13/20 21:12 Source of Information: Reports: Patient, RN Notes Reviewed History Limitations: Reports: No Limitations - History of Present Illness INITIAL COMMENTS - FREE TEXT/NARRATIVE: 84-year-old gentleman presents emergency department day complaint of abdominal pain with distention, he states that abdominal pain over the last day or so but today his abdomen started getting more and more distended and he stopped passing gas has some nausea significant history of multiple surgeries Abdomen Pain Score (Numeric/FACES): 10 - Related Data Allergies Allergy/AdvReac Type Severity Reaction Status Date / Time No Known Allergies Allergy Verified 06/19/20 08:18 Home Meds: Home Meds Aspirin 81 mg PO DAILY 08/10/13 [History] Lisinopril/Hydrochlorothiazide [Lisinopril-Hctz 20-12.5 mg Tab] 1 each PO BID 08/10/13 [History] Metoprolol Succinate [Toprol XL 50mg] 1 tab PO DAILY 08/10/13 [History] Nitroglycerin 0.4 mg SL ASDIRECTED PRN 08/10/13 [History] dilTIAZem HCL [Diltiazem 12Hr ER] 90 mg PO BID 08/10/13 [History] Hydrocodone/Acetaminophen [Hydrocodon-Acetaminophn 10-325] 2 tab PO Q8H PRN 01/02/19 [History] LORazepam 0.5 mg PO Q8H PRN 01/02/19 [History] Tamsulosin [Flomax] 0.4 mg PO BEDTIME #30 cap.er 09/06/19 [Rx] Citalopram [Citalopram HBr] 10 mg PO DAILY 06/18/20 [History] Pantoprazole [ProTONIX] 40 mg PO DAILY 06/18/20 [History] Simvastatin 80 mg PO BEDTIME 06/18/20 [History] Past Medical History HEENT History: Reports: Impaired Vision Cardiovascular History: Reports: Bypass, CAD, Hypertension, Stents Gastrointestinal History: Reports: Diverticulosis, GERD, Other (See Below) Other Gastrointestinal History: bowel obstruction Genitourinary History: Reports: Prostate Disorder Musculoskeletal History: Reports: Arthritis, Back Pain, Chronic Psychiatric History: Reports: Anxiety, Depression Other Oncologic History: skin Other Dermatologic History: skin cancer - Infectious Disease History Infectious Disease History: Reports: Chicken Pox, Measles, Mumps - Past Surgical History Cardiovascular Surgical History: Reports: Valve Replacement, Other (See Below) Other Cardiovascular Surgeries/Procedures: 2 open heart surgeries GI Surgical History: Reports: Appendectomy, Cholecystectomy, Colonoscopy, EGD, Hernia Repair/Other Male Surgical History: Reports: None Social & Family History - Family History Cardiac: Reports: CAD, NE : Reports: Renal Disease/Insufficiency Oncologic: Reports: Brain - Tobacco Use Tobacco Use Status *Q: Never Tobacco User - Caffeine Use Caffeine Use: Reports: Coffee Caffeine Use Comment: rarely - Recreational Drug Use Recreational Drug Use: No ED ROS GENERAL - Review of Systems Review Of Systems: See Below Constitutional: Reports: No Symptoms HEENT: Reports: No Symptoms Respiratory: Reports: No Symptoms Cardiovascular: Reports: No Symptoms GI/Abdominal: Reports: Abdominal Pain, Distension. Denies: Flatus : Reports: No Symptoms ED EXAM, GI/ABD - Physical Exam Exam: See Below Exam Limited By: No Limitations General Appearance: Alert, WD/WN, No Apparent Distress Respiratory/Chest: No Respiratory Distress, Lungs Clear, Normal Breath Sounds, No Accessory Muscle Use, Chest Non-Tender Cardiovascular: Regular Rate, Rhythm, No Murmur GI/Abdominal Exam: Normal Bowel Sounds, Soft, Distended, Tender Course - Vital Signs Last Recorded V/S: Last Vital Signs Temp 97.2 F 07/13/20 21:04 Pulse 60 07/13/20 21:04 Resp 16 07/13/20 21:04 BP 142/56 H 07/13/20 21:04 Pulse Ox 96 07/13/20 21:04 - Orders/Labs/Meds Orders: Active Orders 24 hr Category Date Time Status Peripheral IV Care [RC] . DIRECTED Care 07/13/20 21:16 Active Sodium Chloride 0.9% [Normal Saline] 1,000 ml Med 07/13/20 21:15 Active IV ASDIRECTED Sodium Chloride 0.9% [Normal Saline] 70 ml Med 07/13/20 21:30 Active IV ASDIRECTED Sodium Chloride 0.9% [Saline Flush] Med 07/13/20 21:15 Active 10 ml FLUSH ASDIRECTED PRN Peripheral IV Insertion Adult [OM.PC] Urgent Oth 07/13/20 21:15 Ordered Medication Orders Sodium Chloride (Normal Saline) 1,000 mls @ 125 mls/hr IV ASDIRECTED CLARA Last Admin: 07/13/20 21:22 Dose: 125 mls/hr Documented by: GEOVANNA Sodium Chloride (Normal Saline) 70 mls @ 3.5 mls/sec IV ASDIRECTED CLARA Last Admin: 07/13/20 22:07 Dose: 3 mls/sec Documented by: PATRICIA Sodium Chloride (Sodium Chloride 0.9% 10 Ml Syringe) 10 ml FLUSH ASDIRECTED PRN PRN Reason: Keep Vein Open Last Admin: 07/13/20 21:22 Dose: 10 ml Documented by: GEOVANNA Labs: Laboratory Tests 07/13/20 07/13/20 07/13/20 Range/Units 21:30 21:30 21:30 WBC 7.1 (4.5-11.0) K/uL RBC 3.16 L (4.30-5.90) M/uL Hgb 9.2 L (12.0-15.0) g/dL Hct 28.7 L (40.0-54.0) % MCV 91 (80-98) fL MCH 29 (27-31) pg MCHC 32 (32-36) % Plt Count 247 (150-400) K/uL Neut % (Auto) 73 H (36-66) % Lymph % (Auto) 11 L (24-44) % [place] % (Auto) 12 H (2-6) % Eos % (Auto) 5 H (2-4) % Baso % (Auto) 0 (0-1) % Sodium 137 L (140-148) mmol/L Potassium 4.1 (3.6-5.2) mmol/L Chloride 98 L (100-108) mmol/L Carbon Dioxide 30 (21-32) mmol/L Anion Gap 13.1 (5.0-14.0) mmol/L BUN 16 (7-18) mg/dL Creatinine 1.3 (0.8-1.3) mg/dL Est Cr Clr Drug Dosing 36.37 mL/min Estimated GFR (MDRD) 52 L (>60) Glucose 141 H (74-106) mg/dL Lactic Acid 1.2 (0.4-2.0) mmol/L Calcium 8.9 (8.5-10.1) mg/dL Total Bilirubin 0.9 (0.2-1.0) mg/dL AST 17 (15-37) U/L ALT 17 (12-78) U/L Alkaline Phosphatase 103 D (46-116) U/L Total Protein 7.1 (6.4-8.2) g/dL Albumin 3.4 (3.4-5.0) g/dL Globulin 3.7 H (2.3-3.5) g/dL Albumin/Globulin Ratio 0.9 L (1.2-2.2) Lipase 68 L (73-393) U/L Meds: Medications Generic Name Dose Route Start Last Admin Trade Name Freq PRN Reason Stop Dose Admin Sodium Chloride 1,000 mls @ 125 mls/hr 07/13/20 21:15 07/13/20 21:22 Normal Saline IV 125 mls/hr ASDIRECTED CLARA Administration Sodium Chloride 70 mls @ 3.5 mls/sec 07/13/20 21:30 07/13/20 22:07 Normal Saline IV 3 mls/sec ASDIRECTED CLARA Administration Sodium Chloride 10 ml 07/13/20 21:15 07/13/20 21:22 Sodium Chloride 0.9% 10 Ml Syringe FLUSH 10 ml ASDIRECTED PRN Administration Keep Vein Open Discontinued Medications Generic Name Dose Route Start Last Admin Trade Name Freq PRN Reason Stop Dose Admin Fentanyl 50 mcg 07/13/20 21:16 07/13/20 21:19 Fentanyl 100 Mcg/2 Ml Sdv IVPUSH 07/13/20 21:17 50 mcg ONETIME ONE Administration Iopamidol 94 ml 07/13/20 21:26 07/13/20 22:07 Iopamidol 612 Mg/Ml 500 Ml Multipack Bottle IV 07/13/20 21:27 94 ml ONETIME ONE Administration Ondansetron HCl 4 mg 07/13/20 21:16 07/13/20 21:21 Ondansetron 4 Mg/2 Ml Sdv IVPUSH 07/13/20 21:17 4 mg ONETIME ONE Administration Sodium Chloride 10 ml 07/13/20 21:26 07/13/20 22:07 Sodium Chloride 0.9% 10 Ml Syringe FLUSH 07/13/20 21:27 10 ml ONETIME ONE Administration Departure - Departure Time of Disposition: 22:58 Disposition: Admitted As Inpatient 64 Condition: Fair Clinical Impression: Partial small bowel obstruction - Discharge Information Sepsis Event Note (ED) - Evaluation Sepsis Screening Result: No Definite Risk - Focused Exam Vital Signs: Vital Signs Temp Pulse Resp BP Pulse Ox 07/13/20 21:04 97.2 F 60 16 142/56 H 96 - My Orders Last 24 Hours: My Active Orders 07/13/20 21:15 Sodium Chloride 0.9% [Normal Saline] 1,000 ml IV ASDIRECTED Sodium Chloride 0.9% [Saline Flush] 10 ml FLUSH ASDIRECTED PRN Peripheral IV Insertion Adult [OM.PC] Urgent 07/13/20 21:16 Peripheral IV Care [RC] . DIRECTED 07/13/20 21:30 Sodium Chloride 0.9% [Normal Saline] 70 ml IV ASDIRECTED - Assessment/Plan Last 24 Hours: My Active Orders 07/13/20 21:15 Sodium Chloride 0.9% [Normal Saline] 1,000 ml IV ASDIRECTED Sodium Chloride 0.9% [Saline Flush] 10 ml FLUSH ASDIRECTED PRN Peripheral IV Insertion Adult [OM.PC] Urgent 07/13/20 21:16 Peripheral IV Care [RC] . DIRECTED 07/13/20 21:30 Sodium Chloride 0.9% [Normal Saline] 70 ml IV ASDIRECTED Plan: Assessment Acuity = acute Site and laterality = partial small bowel obstruction Etiology = unknown Manifestations = abdominal distention Location of injury = Home Lab values = hemoglobin low at 9.[address] scan describes small bowel obstruction above Plan Call discussed case with hospitalist on-call at [phone] can agreed to come evaluate patient emergency department for admission This note was dictated using [employer] voice recognition software please call with any questions on syntax or grammar.
[2020-07-13] MEDS: Sodium Chloride 0.9% 1,000 ML IV SCH (21:22)
[2020-07-13] MEDS ORDERED: Sodium Chloride 0.9% 10 ML Syringe FLUSH ONE (21:26)
[2020-07-13] MEDS ORDERED: Iopamidol 612 MG/ML 500 ML Multipack Bottle IV ONE (21:26)
--- NOTE | 2020-07-13 22:44 | PCM.HP.2 ---
H&P History of Present Illness - General Date of Service: 07/13/20 Admit Problem/Dx: Admission Diagnosis/Problem Admission Diagnosis/Problem Small bowel obstruction Source of Information: Patient, Provider, RN History Limitations: Reports: No Limitations - History of Present Illness Initial Comments - Free Text/Narative: chief complaint: abdominal pain This is a 84 male presents to the ER via EMS with a two day history of abdominal pain and bloating. He reports diarrhea stools X3 this morning, urinating his usual amounts, last meal at 7 pm this evening- had "[employer] Whe[employer]" steak, mashed potatoes, and string beans. no nausea or vomiting- just acute pain. In ER CT abdomen-pelvis shows a partial small bowel obstruction. will plan to admit for further care and treatment. Mr. Medina will consent to treatment to reduce bowel obstruction, declines any surgical intervention or heroic measure. If that happens request comfort cares only and to have a natural . Symptom Onset Date: 07/12/20 Duration of Symptoms: Reports: Day(s): (two), Getting Worse Location: Reports: Abdomen (generalized abdominal pain) Quality: Reports: Pressure, Same as Previous Episode, Sharp Severity: Severe (rates pain at 8 out of 10) Improves with: Reports: None Worsens with: Reports: Eating (last meal today at 7 pm) Context: Reports: Other (past history of small bowel obstruction. without surgical intervention) Associated Symptoms: Reports: Other (abdominal pain). Denies: Nausea/Vomiting (denies any nausea or vomiting) Abdomen Pain Score (Numeric/FACES): 10 - Related Data Allergies/Adverse Reactions: Allergies Allergy/AdvReac Type Severity Reaction Status Date / Time No Known Allergies Allergy Verified 06/19/20 08:18 Home Medications: Home Meds Aspirin 81 mg PO DAILY 08/10/13 [History] Lisinopril/Hydrochlorothiazide [Lisinopril-Hctz 20-12.5 mg Tab] 1 each PO BID 08/10/13 [History] Metoprolol Succinate [Toprol XL 50mg] 1 tab PO DAILY 08/10/13 [History] Nitroglycerin 0.4 mg SL ASDIRECTED PRN 08/10/13 [History] dilTIAZem HCL [Diltiazem 12Hr ER] 90 mg PO BID 08/10/13 [History] Hydrocodone/Acetaminophen [Hydrocodon-Acetaminophn 10-325] 2 tab PO Q8H PRN 01/02/19 [History] LORazepam 0.5 mg PO Q8H PRN 01/02/19 [History] Tamsulosin [Flomax] 0.4 mg PO BEDTIME #30 cap.er 09/06/19 [Rx] Citalopram [Citalopram HBr] 10 mg PO DAILY 06/18/20 [History] Pantoprazole [ProTONIX] 40 mg PO DAILY 06/18/20 [History] Simvastatin 80 mg PO BEDTIME 06/18/20 [History] Past Medical History HEENT History: Reports: Impaired Vision Cardiovascular History: Reports: Bypass, CAD, Hypertension, Stents Gastrointestinal History: Reports: Diverticulosis, GERD, Other (See Below) Other Gastrointestinal History: bowel obstruction Genitourinary History: Reports: Prostate Disorder Musculoskeletal History: Reports: Arthritis, Back Pain, Chronic Psychiatric History: Reports: Anxiety, Depression Other Oncologic History: skin Other Dermatologic History: skin cancer - Infectious Disease History Infectious Disease History: Reports: Chicken Pox, Measles, Mumps - Past Surgical History Cardiovascular Surgical History: Reports: Valve Replacement, Other (See Below) Other Cardiovascular Surgeries/Procedures: 2 open heart surgeries GI Surgical History: Reports: Appendectomy, Cholecystectomy, Colonoscopy, EGD, Hernia Repair/Other Male Surgical History: Reports: None Social & Family History - Family History Cardiac: Reports: CAD, [place] : Reports: Renal Disease/Insufficiency Oncologic: Reports: Brain - Tobacco Use Tobacco Use Status *Q: Never Tobacco User - Caffeine Use Caffeine Use: Reports: Coffee Caffeine Use Comment: rarely - Recreational Drug Use Recreational Drug Use: No - Living Situation & Occupation Living situation: Reports: Occupation: Retired (still and [employer] for 52 years, - is disabled, has one Son in [place], one Daughter in [place], [place].) H&P Review of Systems - Review of Systems: Review Of Systems: See Below General: Reports: Other (reports two days of abdominal pain, worse this evening.) HEENT: Reports: Glasses, Other (natural teeth.) Pulmonary: Reports: No Symptoms Cardiovascular: Reports: No Symptoms Gastrointestinal: Reports: Abdominal Pain, Diarrhea, Distension Genitourinary: Reports: No Symptoms Musculoskeletal: Reports: Leg Pain (chronic bilateral lower leg pain with edema, red, cracked, flaking of skin. ambulates with wheelchair or canes due to painful legs and feet), Other (chronic pain in lower legs due to severe dry skin) Skin: Reports: Dryness, Other (bilateral lower legs with skin conditions causing pain and shedding of skin in dry flakes.) Psychiatric: Reports: No Symptoms Neurological: Reports: No Symptoms Hematologic/Lymphatic: Reports: No Symptoms Immunologic: Reports: No Symptoms Exam - Exam Exam: See Below - Vital Signs Vital Signs: Last Vital Signs Temp 97.2 F 07/13/20 21:04 Pulse 60 07/13/20 21:04 Resp 16 07/13/20 21:04 BP 142/56 H 07/13/20 21:04 Pulse Ox 96 07/13/20 21:04 Weight: 139 lb - Exam Quality Assessment: DVT Prophylaxis General: Alert, Oriented, Cooperative, Other (frail appearing male with excellent recall, AOX3.) HEENT: PERRLA, Conjunctiva Clear, Hearing Intact, Glasses Neck: Supple, Trachea Midline Lungs: Clear to Auscultation, Normal Respiratory Effort Cardiovascular: Normal S1, Normal S2, Other ([place] present) GI/Abdominal Exam: Distended (abdomen is firm, bowel sounds are present, generalized pain), Tender (Male) Exam: Deferred Rectal (Males) Exam: Deferred Extremities: Pedal Edema, Leg Pain (builateral chronic), Other (bilateral lower legs with flaking of skin, red, dry cracked. white flakes. edema present.) Skin: Other (chronic skin condition of lower legs-red, cracked, flakes of skin, painful) Neurological: Strength Equal Bilateral, Normal Speech, Normal Tone, Other (reports use of cane or wheelchair) Neuro Extensive - Mental Status: Alert, Oriented x3, Normal Mood/Affect, Normal Cognition, Memory Intact Psychiatric: Alert, Normal Affect, Normal Mood - Patient Data Lab Results Last 24 hrs: Laboratory Results - last 24 hr 07/13/20 07/13/20 07/13/20 Range/Units 21:30 21:30 21:30 WBC 7.1 (4.5-11.0) K/uL RBC 3.16 L (4.30-5.90) M/uL Hgb 9.2 L (12.0-15.0) g/dL Hct 28.7 L (40.0-54.0) % MCV 91 (80-98) fL MCH 29 (27-31) pg MCHC 32 (32-36) % Plt Count 247 (150-400) K/uL Neut % (Auto) 73 H (36-66) % Lymph % (Auto) 11 L (24-44) % [place] % (Auto) 12 H (2-6) % Eos % (Auto) 5 H (2-4) % Baso % (Auto) 0 (0-1) % Sodium 137 L (140-148) mmol/L Potassium 4.1 (3.6-5.2) mmol/L Chloride 98 L (100-108) mmol/L Carbon Dioxide 30 (21-32) mmol/L Anion Gap 13.1 (5.0-14.0) mmol/L BUN 16 (7-18) mg/dL Creatinine 1.3 (0.8-1.3) mg/dL Est Cr Clr Drug Dosing 36.37 mL/min Estimated GFR (MDRD) 52 L (>60) Glucose 141 H (74-106) mg/dL Lactic Acid 1.2 (0.4-2.0) mmol/L Calcium 8.9 (8.5-10.1) mg/dL Total Bilirubin 0.9 (0.2-1.0) mg/dL AST 17 (15-37) U/L ALT 17 (12-78) U/L Alkaline Phosphatase 103 D (46-116) U/L Total Protein 7.1 (6.4-8.2) g/dL Albumin 3.4 (3.4-5.0) g/dL Globulin 3.7 H (2.3-3.5) g/dL Albumin/Globulin Ratio 0.9 L (1.2-2.2) Lipase 68 L (73-393) U/L Result Diagrams: 07/13/20 21:30 07/13/20 21:30 Sepsis Event Note - Evaluation Sepsis Screening Result: No Definite Risk - Focused Exam Vital Signs: Vital Signs Temp Pulse Resp BP Pulse Ox 07/13/20 21:04 97.2 F 60 16 142/56 H 96 - Problem List (1) Partial small bowel obstruction SNOMED Code(s): 501777606 ICD Code: K56.600 - PARTIAL INTESTINAL OBSTRUCTION, UNSPECIFIED TO CAUSE Status: Acute Priority: High Current Visit: Yes (2) CKD (chronic kidney disease) stage 3, GFR 30-59 ml/min SNOMED Code(s): 006280141 ICD Code: N18.30 - CHRONIC KIDNEY DISEASE, STAGE 3 UNSPECIFIED Status: Acute Priority: High Current Visit: Yes (3) CAD (coronary artery disease) SNOMED Code(s): 83612286 ICD Code: I25.10 - ATHSCL HEART DISEASE OF [place] CORONARY ARTERY W/O ANG PCTRS Status: Chronic Priority: High Current Visit: Yes Qualifiers: Coronary Disease-Associated Artery/Lesion type: [place] artery [place] vs. transplanted heart: [place] heart Associated angina: without angina Qualified Code(s): I25.10 - Atherosclerotic heart disease of [place] coronary artery without angina pectoris (4) Dermatitis, atopic SNOMED Code(s): 92268778 ICD Code: L20.9 - ATOPIC DERMATITIS, UNSPECIFIED Status: Acute Priority: High Current Visit: Yes Qualifiers: Atopic dermatitis type: unspecified Qualified Code(s): L20.9 - Atopic dermatitis, unspecified Problem List Initiated/Reviewed/Updated: Yes Orders Last 24hrs: Active Orders 24 hr Category Date Time Status Patient Status Manage Transfer [TRANSFER] Routine ADT 07/13/20 22:28 Active Peripheral IV Care [RC] . DIRECTED Care 07/13/20 21:16 Active Abdomen Pelvis w Cont [CT] Urgent Exams 07/13/20 21:15 Taken Sodium Chloride 0.9% [Normal Saline] 1,000 ml Med 07/13/20 21:15 Active IV ASDIRECTED Sodium Chloride 0.9% [Normal Saline] 70 ml Med 07/13/20 21:30 Active IV ASDIRECTED Sodium Chloride 0.9% [Saline Flush] Med 07/13/20 21:15 Active 10 ml FLUSH ASDIRECTED PRN Peripheral IV Insertion Adult [OM.PC] Urgent Oth 07/13/20 21:15 Ordered Resuscitation Status Routine Resus Stat 07/13/20 22:30 Ordered Medication Orders Sodium Chloride (Normal Saline) 1,000 mls @ 125 mls/hr IV ASDIRECTED CLARA Last Admin: 07/13/20 21:22 Dose: 125 mls/hr Documented by: GEOVANNA Sodium Chloride (Normal Saline) 70 mls @ 3.5 mls/sec IV ASDIRECTED CLARA Last Admin: 07/13/20 22:07 Dose: 3 mls/sec Documented by: PATRICIA Sodium Chloride (Sodium Chloride 0.9% 10 Ml Syringe) 10 ml FLUSH ASDIRECTED PRN PRN Reason: Keep Vein Open Last Admin: 07/13/20 21:22 Dose: 10 ml Documented by: GEOVANNA Assessment/Plan Comment:: ASSESSMENT AND PLAN OF CARE- PARTIAL SMALL BOWEL OBSTRUCTION Partial Small bowel obstruction-CT scan show small bowel obstruction. -IV fluids- Normal Saline at 125ml/hr -Pain and nausea management -NG tube to intermittent suction -patient declines any Surgical intervention if condition deteriorates- will request comfort cares. -Nothing by mouth Essential Hypertension -continue outpatient medications CAD -continue outpatient medications CKD stage 3 -monitor I&O closely, adjust fluids as indicated. Atopic dermatitis -daily lotions and skin care. Maintenance issues - - DVT prophylaxis - SCD - GI prophylaxis -PPI - Nutrition -nothing by mouth - James catheter -not indicated CODE STATUS -DNR/DNI Admission justification - this patient will be admitted for inpatient services and is medically appropriate meeting medical necessity for inpatient admission as outlined in my documentation. I reasonably expect the patient will require inpatient services that span a period time over 2 midnights. I reasonably expect this patient to be discharged or transferred within 96 hours [facility]. Disposition -I would anticipate discharge home after the hospital stay Primary care physician - , [facility] Hospitalist- Wiliam Franks M.D. - Mortality Measure- good - Mortality Measure Prognosis:: Good
--- NOTE | 2020-07-13 22:55 | CRLCT ---
INDICATION: Pain and abdominal distention. History of obstruction. COMPARISON: CT of the abdomen and pelvis without contrast from 06/18/2020. CT of the abdomen and pelvis with contrast from 09/03/2019 TECHNIQUE: CT examination of the abdomen and pelvis was performed with the uneventful intravenous administration of 94 cc of Isovue-300 while 3 mm thick axial sections were obtained from the lung bases through the pubic symphysis. Oral contrast was not administered. Please note that all CT scans at this facility use dose modulation, iterative reconstruction, and/or weight-based dosing when appropriate to reduce radiation dose to as low as reasonably achievable. FINDINGS: There is increased dilatation of multiple small bowel loops, now with moderate distention with gas and fluid, representing worsening partial small-bowel obstruction. The point of transition appears to be in the left lower abdomen on axial image 68 series 3 and coronal image 59 series 4, where there is a focal area of thickening of the wall of the small bowel, suggesting a stricture. The small bowel distal to this is normal in caliber. In the abdomen, the liver is again seen to have moderate intrahepatic ductal dilatation when compared to the previous contrast enhanced exam This is associated with stable severe dilatation of the common bile duct to 16 millimeters and surgical clips from cholecystectomy. The findings are consistent with post-cholecystectomy status. The liver is otherwise normal in appearance. The spleen, pancreas, and adrenals are normal in appearance. Again seen is moderate atrophy of the left kidney with a 1.5 centimeter cyst in the upper pole of the left kidney. The right kidney remains normal in appearance. The abdominal aorta is normal in caliber with no sign of dilatation. There is no sign of retroperitoneal mass or adenopathy. The stomach is now filled with gas and is moderately distended. The previously-seen fullness in the area of the gastric fundus is no longer present and was simply the result of underdistention. The colon in the abdomen is relatively decompressed and is otherwise normal in appearance. In the pelvis, the appendix is nonvisualized, but there is no sign of an inflammatory process in the area of the appendix. The loops of small bowel and colon in the pelvis are normal in appearance. The prostate remains prominently enlarged but is otherwise normal in appearance. The urinary bladder is now seen to be mildly distended, significantly improved in appearance compared to the previous study. There continue to be multiple small bladder diverticuli along the posterior margin of the urinary bladder consistent with bladder outlet obstruction. There is no sign of pelvic or inguinal mass or adenopathy. Again seen are postoperative changes of right inguinal hernia repair with multiple surgical clips. There is no sign of recurrence of a hernia. There is no sign of free air or free fluid in the abdomen or pelvis. There is new mild patchy density in the posterior lung bases consistent with atelectasis. Again seen is severe L5-S1 and moderate at L3-4 and L4-5 disc degenerative disease. Mild disc degenerative disease is again seen throughout the rest of the lumbar spine. Again seen is mild anterior wedging of the T11 and T12 vertebral bodies consistent with old mild compression fractures. IMPRESSION: Worsening of partial small-bowel obstruction, now with moderate dilatation of the small bowel extending to what appears to be a stricture located in the left lower abdomen. No sign of bowel perforation or free fluid. CT of the abdomen shows continued moderate intrahepatic and severe extrahepatic biliary ductal dilatation consistent with post cholecystectomy status. Stable moderate left renal atrophy. CT of the pelvis shows stable severe enlargement of the prostate. Decreased distention of the urinary bladder, now mild. Again seen are multiple posterior urinary bladder diverticuli. Please note that all CT scans at this facility use dose modulation, iterative reconstruction, and/or weight-based dosing when appropriate to reduce radiation dose to as low as reasonably achievable. Dictated by Yougn Vuong MD @ 07/13/2020 10:53:[address] Young Vuong @ Jul 13 2020 10:53PM
[2020-07-13] MEDS ORDERED: Lidocaine 2% Jelly 10 ML Urojet MUCMEM ONE (23:12)
[2020-07-13] MEDS ORDERED: Lidocaine 2% Jelly 10 ML Urojet ONE (23:14)
[2020-07-13] MEDS ORDERED: Albuterol 0.083% 2.5 MG/3 ML Neb Soln NEB PRN (23:54)
[2020-07-13] MEDS ORDERED: Albuterol/Ipratropium 3.0-0.5 MG/3 ML Neb Soln NEB PRN (23:54)
[2020-07-13] MEDS ORDERED: Ondansetron 4 MG/2 ML SDV IV PRN (23:54)
[2020-07-13] MEDS ORDERED: Nitroglycerin 0.4 MG Tab.SL SL PRN (23:54)
[2020-07-13] MEDS ORDERED: Morphine 2 MG/ML SYRINGE IVPUSH PRN (23:54)
[2020-07-13] MEDS ORDERED: Non-Formulary Medication 1 Each (Lisinopril/Hydrochlorothiazide [Lisinopril-Hctz 20-12.5 M PO SCH (23:54)
[2020-07-13] MEDS ORDERED: LORazepam 2 MG/ML SDV IV PRN (23:54)
[2020-07-14] MEDS: Lisinopril 10 MG Tab ONE ×2 (01:36→01:44)
[2020-07-14] MEDS: Hydrochlorothiazide 12.5 MG Cap PO SCH ×3 (01:36→21:11)
[2020-07-14] MEDS: Lisinopril 20 MG Tab PO SCH ×3 (01:43→21:11)
[2020-07-14] MEDS: Sodium Chloride 0.9% 1,000 ML IV SCH (05:38)
[2020-07-14] MEDS: Metoprolol Succinate 50 MG Tab.ER PO SCH (08:56)
[2020-07-14] MEDS: Diltiazem 180 MG Cap.CD PO SCH (08:56)
[2020-07-14] MEDS: Citalopram 10 MG Tab PO SCH (08:56)
[2020-07-14] MEDS ORDERED: Pantoprazole 40 MG Vial IV SCH (09:00)
--- NOTE | 2020-07-14 09:11 | CR ---
CHEST: 2 view CLINICAL HISTORY:NG tube COMPARISON:CT 06/19/2020 FINDINGS: Patient has an NG tube in the distal esophagus at the level of the GE junction. There is gaseous distention of the stomach small bowel and colon. Patient has had previous sternotomy. There is patchy density in both lung bases. The there was some pneumonitis seen on the CT in June. 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
--- NOTE | 2020-07-14 13:01 | PCM.PN ---
- General Info Date of Service: 07/14/20 Subjective Update: No acute events overnight. Minimal output from the NG tube. He has a sore throat from the NG tube. No significant abdominal pain since last night. He is passing gas. He did have a bowel movement in the emergency room but none since. Abdomen is smaller today than yesterday and back to baseline. We performed a clamping trial this afternoon and there was no significant output from the NG tube so it will be removed. Functional Status: Reports: Pain Controlled - Review of Systems General: Denies: Fever Gastrointestinal: Reports: Flatus. Denies: Abdominal Pain, Nausea - Patient Data Vitals - Most Recent: Last Vital Signs Temp 36.1 C 07/14/20 10:43 Pulse 62 07/14/20 10:43 Resp 18 07/14/20 10:43 BP 157/85 H 07/14/20 10:43 Pulse Ox 97 07/14/20 12:55 Weight - Most Recent: 64.41 kg I&O - Last 24 Hours: Intake & Output 07/13/20 07/14/20 07/14/20 22:59 06:59 14:59 Intake Total 676 Output Total 950 400 Balance -274 -400 Lab Results Last 24 Hours: Laboratory Results - last 24 hr 07/13/20 07/13/20 07/13/20 Range/Units 21:30 21:30 21:30 WBC 7.1 (4.5-11.0) K/uL RBC 3.16 L (4.30-5.90) M/uL Hgb 9.2 L (12.0-15.0) g/dL Hct 28.7 L (40.0-54.0) % MCV 91 (80-98) fL MCH 29 (27-31) pg MCHC 32 (32-36) % Plt Count 247 (150-400) K/uL Neut % (Auto) 73 H (36-66) % Lymph % (Auto) 11 L (24-44) % [place] % (Auto) 12 H (2-6) % Eos % (Auto) 5 H (2-4) % Baso % (Auto) 0 (0-1) % Sodium 137 L (140-148) mmol/L Potassium 4.1 (3.6-5.2) mmol/L Chloride 98 L (100-108) mmol/L Carbon Dioxide 30 (21-32) mmol/L Anion Gap 13.1 (5.0-14.0) mmol/L BUN 16 (7-18) mg/dL Creatinine 1.3 (0.8-1.3) mg/dL Est Cr Clr Drug Dosing 36.37 mL/min Estimated GFR (MDRD) 52 L (>60) Glucose 141 H (74-106) mg/dL Lactic Acid 1.2 (0.4-2.0) mmol/L Calcium 8.9 (8.5-10.1) mg/dL Total Bilirubin 0.9 (0.2-1.0) mg/dL AST 17 (15-37) U/L ALT 17 (12-78) U/L Alkaline Phosphatase 103 D (46-116) U/L Total Protein 7.1 (6.4-8.2) g/dL Albumin 3.4 (3.4-5.0) g/dL Globulin 3.7 H (2.3-3.5) g/dL Albumin/Globulin Ratio 0.9 L (1.2-2.2) Lipase 68 L (73-393) U/L Urine Color (YELLOW) Urine Appearance (CLEAR) Urine pH (5.0-8.0) Ur Specific [place] (1.008-1.030) Urine Protein (NEGATIVE) mg/dL Urine Glucose (UA) (NEGATIVE) mg/dL Urine Ketones (NEGATIVE) mg/dL Urine Occult Blood (NEGATIVE) Urine Nitrite (NEGATIVE) Urine Bilirubin (NEGATIVE) Urine Urobilinogen (0.2-1.0) EU/dL Ur Leukocyte Esterase (NEGATIVE) Urine RBC (0-5) Urine WBC (0-5) Ur Epithelial Cells Amorphous Sediment Urine Bacteria Urine Mucus 07/14/20 07/14/20 07/14/20 Range/Units 02:05 04:05 04:05 WBC 5.1 (4.5-11.0) K/uL RBC 3.17 L (4.30-5.90) M/uL Hgb 9.2 L (12.0-15.0) g/dL Hct 28.9 L (40.0-54.0) % MCV 91 (80-98) fL MCH 29 (27-31) pg MCHC 32 (32-36) % Plt Count 235 (150-400) K/uL Neut % (Auto) 67 H (36-66) % Lymph % (Auto) 17 L (24-44) % [place] % (Auto) 13 H (2-6) % Eos % (Auto) 3 (2-4) % Baso % (Auto) 0 (0-1) % Sodium 140 (140-148) mmol/L Potassium 4.1 (3.6-5.2) mmol/L Chloride 102 (100-108) mmol/L Carbon Dioxide 29 (21-32) mmol/L Anion Gap 9.3 (5.0-14.0) mmol/L BUN 14 (7-18) mg/dL Creatinine 1.2 (0.8-1.3) mg/dL Est Cr Clr Drug Dosing 40.26 mL/min Estimated GFR (MDRD) 57 L (>60) Glucose 112 H (74-106) mg/dL Lactic Acid (0.4-2.0) mmol/L Calcium 8.8 (8.5-10.1) mg/dL Total Bilirubin (0.2-1.0) mg/dL AST (15-37) U/L ALT (12-78) U/L Alkaline Phosphatase (46-116) U/L Total Protein (6.4-8.2) g/dL Albumin (3.4-5.0) g/dL Globulin (2.3-3.5) g/dL Albumin/Globulin Ratio (1.2-2.2) Lipase (73-393) U/L Urine Color Yellow (YELLOW) Urine Appearance Clear (CLEAR) Urine pH 8.5 H (5.0-8.0) Ur Specific [place] 1.015 (1.008-1.030) Urine Protein Trace H (NEGATIVE) mg/dL Urine Glucose (UA) Negative (NEGATIVE) mg/dL Urine Ketones Negative (NEGATIVE) mg/dL Urine Occult Blood Trace-intact H (NEGATIVE) Urine Nitrite Negative (NEGATIVE) Urine Bilirubin Negative (NEGATIVE) Urine Urobilinogen 0.2 (0.2-1.0) EU/dL Ur Leukocyte Esterase Negative (NEGATIVE) Urine RBC 0-5 (0-5) Urine WBC 0-5 (0-5) Ur Epithelial Cells Not seen Amorphous Sediment Rare Urine Bacteria Rare Urine Mucus Not seen Med Orders - Current: Current Medications Albuterol (Albuterol 0.083% 2.5 Mg/3 Ml Neb Soln) 2.5 mg NEB Q4H PRN PRN Reason: Shortness Of Breath/wheezing Albuterol/Ipratropium (Albuterol/Ipratropium 3.0-0.5 Mg/3 Ml Neb Soln) 3 ml NEB QID PRN PRN Reason: Shortness Of Breath/wheezing Citalopram Hydrobromide (Citalopram 10 Mg Tab) 10 mg PO DAILY [facility] Last Admin: 07/14/20 08:56 Dose: 10 mg Documented by: Diltiazem HCl (Diltiazem 180 Mg Cap.Cd) 180 mg PO DAILY [facility] Last Admin: 07/14/20 08:56 Dose: 180 mg Documented by: Hydrochlorothiazide (Hydrochlorothiazide 12.5 Mg Cap) 12.5 mg PO BID [facility] Last Admin: 07/14/20 08:56 Dose: 12.5 mg Documented by: Sodium Chloride (Normal Saline) 1,000 mls @ 125 mls/hr IV ASDIRECTED [facility] Last Admin: 07/14/20 05:38 Dose: 125 mls/hr Documented by: Lisinopril (Lisinopril 20 Mg Tab) 20 mg PO BID [facility] Last Admin: 07/14/20 08:57 Dose: 20 mg Documented by: Lorazepam (Lorazepam 2 Mg/Ml Sdv) 1 mg IV Q6H PRN PRN Reason: Anxiety Last Admin: 07/14/20 01:13 Dose: 1 mg Documented by: Metoprolol Succinate (Metoprolol Succinate 50 Mg Tab.Er) 50 mg PO DAILY [facility] Last Admin: 07/14/20 08:56 Dose: 50 mg Documented by: Morphine Sulfate (Morphine 2 Mg/Ml Syringe) 2 mg IVPUSH Q2H PRN PRN Reason: Pain (severe 7-10) Last Admin: 07/14/20 01:13 Dose: 2 mg Documented by: Nitroglycerin (Nitroglycerin 0.4 Mg Tab.Sl) 0.4 mg SL ASDIRECTED PRN PRN Reason: Chest Pain Ondansetron HCl (Ondansetron 4 Mg/2 Ml Sdv) 4 mg IV Q4H PRN PRN Reason: Nausea/Vomiting Pantoprazole Sodium (Pantoprazole 40 Mg Vial) 40 mg IV DAILY [facility] Last Admin: 07/14/20 08:57 Dose: 40 mg Documented by: Sodium Chloride (Sodium Chloride 0.9% 10 Ml Syringe) 10 ml FLUSH ASDIRECTED PRN PRN Reason: Keep Vein Open Last Admin: 07/13/20 21:22 Dose: 10 ml Documented by: Tamsulosin HCl (Tamsulosin 0.4 Mg Cap.Er) 0.4 mg PO BEDTIME [facility] Discontinued Medications Fentanyl (Fentanyl 100 Mcg/2 Ml Sdv) 50 mcg IVPUSH ONETIME ONE Stop: 07/13/20 21:17 Last Admin: 07/13/20 21:19 Dose: 50 mcg Documented by: Sodium Chloride (Normal Saline) 70 mls @ 3.5 mls/sec IV ASDIRECTED [facility] Last Admin: 07/13/20 22:07 Dose: 3 mls/sec Documented by: Iopamidol (Iopamidol 612 Mg/Ml 500 Ml Multipack Bottle) 94 ml IV ONETIME ONE Stop: 07/13/20 21:27 Last Admin: 07/13/20 22:07 Dose: 94 ml Documented by: Lidocaine HCl (Lidocaine 2% Jelly 10 Ml Urojet) 10 ml MUCMEM ONETIME ONE Stop: 07/13/20 23:13 Last Admin: 07/13/20 23:15 Dose: 10 ml Documented by: Lidocaine HCl (Lidocaine 2% Jelly 10 Ml Urojet) Confirm Administered Dose 10 ml .ROUTE .STK-MED ONE Stop: 07/13/20 23:15 Last Admin: 07/14/20 01:44 Dose: Not Given Documented by: Lisinopril (Lisinopril 10 Mg Tab) Confirm Administered Dose 20 mg .ROUTE .STK- MED ONE Stop: 07/14/20 01:32 Last Admin: 07/14/20 01:44 Dose: Not Given Documented by: Non-Formulary Medication (Lisinopril/Hydrochlorothiazide [Lisinopril-Hctz 20- 12.5 Mg Tab]) 1 each PO BID [facility] Last Admin: 07/14/20 02:48 Dose: Not Given Documented by: Ondansetron HCl (Ondansetron 4 Mg/2 Ml Sdv) 4 mg IVPUSH ONETIME ONE Stop: 07/13/20 21:17 Last Admin: 07/13/20 21:21 Dose: 4 mg Documented by: Sodium Chloride (Sodium Chloride 0.9% 10 Ml Syringe) 10 ml FLUSH ONETIME ONE Stop: 07/13/20 21:27 Last Admin: 07/13/20 22:07 Dose: 10 ml Documented by: - Exam Quality Assessment: No: Supplemental Oxygen General: Alert, Oriented, Cooperative, No Acute Distress HEENT: Other (NG tube left side) Lungs: Normal Respiratory Effort Cardiovascular: Regular Rate, Regular Rhythm GI/Abdominal Exam: Normal Bowel Sounds, Soft, No Distention, Tender (mild suprepubic ) Extremities: No Pedal Edema. No: Increased Warmth Skin: Warm, Dry Psy/Mental Status: Alert, Normal Affect - Patient Data Lab Results Last 24 hrs: Laboratory Results - last 24 hr 07/13/20 07/13/20 07/13/20 Range/Units 21:30 21:30 21:30 WBC 7.1 (4.5-11.0) K/uL RBC 3.16 L (4.30-5.90) M/uL Hgb 9.2 L (12.0-15.0) g/dL Hct 28.7 L (40.0-54.0) % MCV 91 (80-98) fL MCH 29 (27-31) pg MCHC 32 (32-36) % Plt Count 247 (150-400) K/uL Neut % (Auto) 73 H (36-66) % Lymph % (Auto) 11 L (24-44) % [place] % (Auto) 12 H (2-6) % Eos % (Auto) 5 H (2-4) % Baso % (Auto) 0 (0-1) % Sodium 137 L (140-148) mmol/L Potassium 4.1 (3.6-5.2) mmol/L Chloride 98 L (100-108) mmol/L Carbon Dioxide 30 (21-32) mmol/L Anion Gap 13.1 (5.0-14.0) mmol/L BUN 16 (7-18) mg/dL Creatinine 1.3 (0.8-1.3) mg/dL Est Cr Clr Drug Dosing 36.37 mL/min Estimated GFR (MDRD) 52 L (>60) Glucose 141 H (74-106) mg/dL Lactic Acid 1.2 (0.4-2.0) mmol/L Calcium 8.9 (8.5-10.1) mg/dL Total Bilirubin 0.9 (0.2-1.0) mg/dL AST 17 (15-37) U/L ALT 17 (12-78) U/L Alkaline Phosphatase 103 D (46-116) U/L Total Protein 7.1 (6.4-8.2) g/dL Albumin 3.4 (3.4-5.0) g/dL Globulin 3.7 H (2.3-3.5) g/dL Albumin/Globulin Ratio 0.9 L (1.2-2.2) Lipase 68 L (73-393) U/L Urine Color (YELLOW) Urine Appearance (CLEAR) Urine pH (5.0-8.0) Ur Specific [place] (1.008-1.030) Urine Protein (NEGATIVE) mg/dL Urine Glucose (UA) (NEGATIVE) mg/dL Urine Ketones (NEGATIVE) mg/dL Urine Occult Blood (NEGATIVE) Urine Nitrite (NEGATIVE) Urine Bilirubin (NEGATIVE) Urine Urobilinogen (0.2-1.0) EU/dL Ur Leukocyte Esterase (NEGATIVE) Urine RBC (0-5) Urine WBC (0-5) Ur Epithelial Cells Amorphous Sediment Urine Bacteria Urine Mucus 07/14/20 07/14/20 07/14/20 Range/Units 02:05 04:05 04:05 WBC 5.1 (4.5-11.0) K/uL RBC 3.17 L (4.30-5.90) M/uL Hgb 9.2 L (12.0-15.0) g/dL Hct 28.9 L (40.0-54.0) % MCV 91 (80-98) fL MCH 29 (27-31) pg MCHC 32 (32-36) % Plt Count 235 (150-400) K/uL Neut % (Auto) 67 H (36-66) % Lymph % (Auto) 17 L (24-44) % [place] % (Auto) 13 H (2-6) % Eos % (Auto) 3 (2-4) % Baso % (Auto) 0 (0-1) % Sodium 140 (140-148) mmol/L Potassium 4.1 (3.6-5.2) mmol/L Chloride 102 (100-108) mmol/L Carbon Dioxide 29 (21-32) mmol/L Anion Gap 9.3 (5.0-14.0) mmol/L BUN 14 (7-18) mg/dL Creatinine 1.2 (0.8-1.3) mg/dL Est Cr Clr Drug Dosing 40.26 mL/min Estimated GFR (MDRD) 57 L (>60) Glucose 112 H (74-106) mg/dL Lactic Acid (0.4-2.0) mmol/L Calcium 8.8 (8.5-10.1) mg/dL Total Bilirubin (0.2-1.0) mg/dL AST (15-37) U/L ALT (12-78) U/L Alkaline Phosphatase (46-116) U/L Total Protein (6.4-8.2) g/dL Albumin (3.4-5.0) g/dL Globulin (2.3-3.5) g/dL Albumin/Globulin Ratio (1.2-2.2) Lipase (73-393) U/L Urine Color Yellow (YELLOW) Urine Appearance Clear (CLEAR) Urine pH 8.5 H (5.0-8.0) Ur Specific [place] 1.015 (1.008-1.030) Urine Protein Trace H (NEGATIVE) mg/dL Urine Glucose (UA) Negative (NEGATIVE) mg/dL Urine Ketones Negative (NEGATIVE) mg/dL Urine Occult Blood Trace-intact H (NEGATIVE) Urine Nitrite Negative (NEGATIVE) Urine Bilirubin Negative (NEGATIVE) Urine Urobilinogen 0.2 (0.2-1.0) EU/dL Ur Leukocyte Esterase Negative (NEGATIVE) Urine RBC 0-5 (0-5) Urine WBC 0-5 (0-5) Ur Epithelial Cells Not seen Amorphous Sediment Rare Urine Bacteria Rare Urine Mucus Not seen Result Diagrams: 07/14/20 04:05 07/14/20 04:05 Sepsis Event Note - Evaluation Sepsis Screening Result: No Definite Risk - Focused Exam Vital Signs: Vital Signs Temp Pulse Pulse Resp BP BP Pulse Ox 07/14/20 12:55 97 07/14/20 10:43 36.1 C 62 18 157/85 H 95 07/14/20 08:57 145/51 H 07/14/20 08:56 71 145/51 H 07/14/20 07:29 95 07/14/20 07:27 94 L 07/14/20 07:06 35.9 C L 71 18 145/51 H 92 L 07/14/20 04:00 35.7 C L 71 16 138/59 L 95 07/14/20 01:55 95 07/14/20 01:43 149/61 H - Problem List Review Problem List Initiated/Reviewed/Updated: Yes - My Orders Last 24 Hours: My Active Orders 07/14/20 12:59 Communication Order [RC] ROUTINE - Plan Plan:: ASSESSMENT AND PLAN - Partial Small bowel obstruction-CT scan show small bowel obstruction. Intermittent issues over the last several months. Improving with nonsurgical management. No NG tube drainage. Symptomatically much better today. Passed clamping trial. -Saline lock IV -Remove NG tube -Pain and nausea management -Trial of clear liquids -Dietary consult tomorrow for info about low residual/low fiber diet Essential Hypertension-stable. -continue outpatient medications CAD-stable. -continue outpatient medications CKD stage 3-stable. -monitor I&O closely, adjust fluids as indicated. Atopic dermatitis -daily lotions and skin care. Maintenance issues - - DVT prophylaxis - SCD - GI prophylaxis -PPI - Nutrition -nothing by mouth Disposition -I would anticipate discharge home with home care after the hospital stay Wiliam Franks M.D.
[2020-07-14] MEDS ORDERED: Tamsulosin 0.4 MG Cap.ER PO SCH (21:00)
[2020-07-15] MEDS ORDERED: Acetaminophen/HYDROcodone 325-10 MG Tab PO PRN (05:35)
[2020-07-15 07:06] VITALS: PULSE 62
[2020-07-15] MEDS ORDERED: Pantoprazole 40 MG Tab.CR PO SCH (07:30)
[2020-07-15] MEDS: Diltiazem 180 MG Cap.CD PO SCH (08:33)
[2020-07-15] MEDS: Metoprolol Succinate 50 MG Tab.ER PO SCH (08:33)
[2020-07-15] MEDS: Lisinopril 20 MG Tab PO SCH (08:33)
[2020-07-15] MEDS: Hydrochlorothiazide 12.5 MG Cap PO SCH (08:33)
[2020-07-15] MEDS: Citalopram 10 MG Tab PO SCH (08:43)
[2020-07-15 10:10] VITALS: BP 145/53
--- NOTE | 2020-07-15 12:26 | PCM.DCSUM1 ---
Discharge Summary - Hospital Course Brief History: 84-year-old male with history of paroxysmal atrial fibrillation, coronary artery disease, previous partial bowel obstruction who presented with increasing abdominal pain and distention. He was admitted for management of a partial small bowel obstruction. Diagnosis: Stroke: No - Discharge Data Discharge Date: 07/15/20 Discharge Disposition: Home, W Home Health Agency 06 Condition: Fair - Referral to Home Health Date of Face to Face Encounter: 07/15/20 Reason for Homebound Status: partial SBO due to adhesions, weakness Primary Care Physician: Marciano Orlando MD Skilled Need: Nursing and PT - Discharge Diagnosis/Problem(s) (1) Partial small bowel obstruction SNOMED Code(s): 686095546 ICD Code: K56.600 - PARTIAL INTESTINAL OBSTRUCTION, UNSPECIFIED TO CAUSE Status: Acute Priority: High (2) Paroxysmal atrial fibrillation SNOMED Code(s): 775418302 ICD Code: I48.0 - PAROXYSMAL ATRIAL FIBRILLATION Status: Chronic (3) CKD (chronic kidney disease) stage 3, GFR 30-59 ml/min SNOMED Code(s): 987770948 ICD Code: N18.30 - CHRONIC KIDNEY DISEASE, STAGE 3 UNSPECIFIED Status: Chronic Priority: High Qualifiers: Chronic kidney disease stage 3 subtype: stage 3a (GFR 45-59) Qualified Code(s): N18.31 - Chronic kidney disease, stage 3a (4) CAD (coronary artery disease) SNOMED Code(s): 17047975 ICD Code: I25.10 - ATHSCL HEART DISEASE OF [place] CORONARY ARTERY W/O ANG PCTRS Status: Chronic Priority: High Qualifiers: Coronary Disease-Associated Artery/Lesion type: [place] artery [place] vs. transplanted heart: [place] heart Associated angina: without angina Qualified Code(s): I25.10 - Atherosclerotic heart disease of [place] coronary artery without angina pectoris - Patient Summary/Data Consults: Consultations 07/14/20 15:59 Consult to Dietary [Consult to Surgical Supplies Sterilizer] [CONS] Routine Comment: Physician Instructions: Quantity: Reason for Consult: GI low residual/low fiber diet info Hospital Course: Al presented to the emergency room with progressive abdominal pain and nausea. Work-up in the emergency room revealed evidence for dehydration as well as at least a partial small bowel obstruction with probable transition point in the right lower abdomen. 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 An NG tube was placed and he was admitted to the hospital for additional management. He received symptomatic management of both pain and nausea. Fortunately shortly after admission he started to have bowel movements and pass gas. This continued through the night. The next day we performed a clamping trial and there was no significant output from the NG tube during that time. The NG tube was removed and he was advanced to clear liquids. He tolerated the clear liquids well and did not have any additional pain since the early portion of the hospital stay. On the day of discharge we tried a GI soft/low residual diet and he tolerated this well. We did have dietary come see him regarding good food options with the suspected stricture causing a partial and intermittent obstruction. We did talk about potential for surgical intervention. At this point the patient feels like he is too old and not in good enough shape to survive a bowel surgery and would like to try to manage this with his diet. He is stable and safe for discharge at this time. He would benefit from early follow-up. He was interested in home care and this was arranged. - Patient Instructions Diet: GI Soft/Low Residue/Low Fiber Activity: As Tolerated Showering/Bathing: May Shower Notify Provider of: Increased Pain, Nausea and/or Vomiting Other/Special Instructions: 1. You were in the hospital for management of a partial small bowel obstruction probably related to old postoperative adhesions. Your condition has improved with nonsurgical management including NG tube decompression and IV fluid hydration. I suspect that this condition will remain and could remained stable or could potentially get worse. To help reduce the risk of future events I recommend a diet that is soft and has low fiber. We have provided information and there is additional information available from the dietitian. 2. Continue your usual home medications as previously prescribed. 3. I have placed a referral to home health care. They will provide nursing and physical therapy services to help ease your transition home after the hospital stay. - Discharge Plan *PRESCRIPTION DRUG MONITORING PROGRAM REVIEWED*: Not Applicable *COPY OF PRESCRIPTION DRUG MONITORING REPORT IN PATIENT JOEL: Not Applicable Home Medications: Home Meds Aspirin 81 mg PO DAILY 08/10/13 [History] Lisinopril/Hydrochlorothiazide [Lisinopril-Hctz 20-12.5 mg Tab] 1 each PO BID 08/10/13 [History] Metoprolol Succinate [Toprol XL 50mg] 1 tab PO DAILY 08/10/13 [History] Nitroglycerin 0.4 mg SL ASDIRECTED PRN 08/10/13 [History] dilTIAZem HCL [Diltiazem 12Hr ER] 90 mg PO BID 08/10/13 [History] Hydrocodone/Acetaminophen [Hydrocodon-Acetaminophn 10-325] 2 tab PO Q8H PRN 01/02/19 [History] LORazepam 0.5 mg PO Q8H PRN 01/02/19 [History] Tamsulosin [Flomax] 0.4 mg PO BEDTIME #30 cap.er 09/06/19 [Rx] Citalopram [Citalopram HBr] 10 mg PO DAILY 06/18/20 [History] Pantoprazole [ProTONIX] 40 mg PO DAILY 06/18/20 [History] Simvastatin 80 mg PO BEDTIME 06/18/20 [History] Patient Handouts: Soft-Food Eating Plan, Bowel Obstruction Referrals: Marciano Orlando MD [Primary Care Provider] - 07/22/20 1:30 pm - Discharge Summary/Plan Comment DC Time >30 min.: Yes (35-set up home care, diet info ) - Patient Data Vitals - Most Recent: Last Vital Signs Temp 35.9 C L 07/15/20 09:00 Pulse 62 07/15/20 09:00 Resp 18 07/15/20 09:00 BP 145/53 H 07/15/20 09:00 Pulse Ox 97 07/15/20 09:00 Weight - Most Recent: 64.41 kg I&O - Last 24 hours: Intake & Output 07/14/20 07/15/20 07/15/20 22:59 06:59 14:59 Intake Total 520 480 Output Total 350 300 Balance 170 180 Med Orders - Current: Current Medications Hydrocodone Bitart/Acetaminophen (Acetaminophen/Hydrocodone 325-10 Mg Tab) 1 - 2 tab PO Q6H PRN PRN Reason: Pain Last Admin: 07/15/20 05:54 Dose: 2 tab Documented by: Albuterol (Albuterol 0.083% 2.5 Mg/3 Ml Neb Soln) 2.5 mg NEB Q4H PRN PRN Reason: Shortness Of Breath/wheezing Albuterol/Ipratropium (Albuterol/Ipratropium 3.0-0.5 Mg/3 Ml Neb Soln) 3 ml NEB QID PRN PRN Reason: Shortness Of Breath/wheezing Citalopram Hydrobromide (Citalopram 10 Mg Tab) 10 mg PO DAILY [facility] Last Admin: 07/15/20 08:43 Dose: 10 mg Documented by: Diltiazem HCl (Diltiazem 180 Mg Cap.Cd) 180 mg PO DAILY [facility] Last Admin: 07/15/20 08:33 Dose: 180 mg Documented by: Hydrochlorothiazide (Hydrochlorothiazide 12.5 Mg Cap) 12.5 mg PO BID [facility] Last Admin: 07/15/20 08:33 Dose: 12.5 mg Documented by: Lisinopril (Lisinopril 20 Mg Tab) 20 mg PO BID [facility] Last Admin: 07/15/20 08:33 Dose: 20 mg Documented by: Lorazepam (Lorazepam 2 Mg/Ml Sdv) 1 mg IV Q6H PRN PRN Reason: Anxiety Last Admin: 07/14/20 01:13 Dose: 1 mg Documented by: Metoprolol Succinate (Metoprolol Succinate 50 Mg Tab.Er) 50 mg PO DAILY [facility] Last Admin: 07/15/20 08:33 Dose: 50 mg Documented by: Morphine Sulfate (Morphine 2 Mg/Ml Syringe) 2 mg IVPUSH Q2H PRN PRN Reason: Pain (severe 7-10) Last Admin: 07/14/20 01:13 Dose: 2 mg Documented by: Nitroglycerin (Nitroglycerin 0.4 Mg Tab.Sl) 0.4 mg SL ASDIRECTED PRN PRN Reason: Chest Pain Ondansetron HCl (Ondansetron 4 Mg/2 Ml Sdv) 4 mg IV Q4H PRN PRN Reason: Nausea/Vomiting Pantoprazole Sodium (Pantoprazole 40 Mg Tab.Cr) 40 mg PO ACBREAKFAST [facility] Last Admin: 07/15/20 08:33 Dose: 40 mg Documented by: Sodium Chloride (Sodium Chloride 0.9% 10 Ml Syringe) 10 ml FLUSH ASDIRECTED PRN PRN Reason: Keep Vein Open Last Admin: 07/13/20 21:22 Dose: 10 ml Documented by: Tamsulosin HCl (Tamsulosin 0.4 Mg Cap.Er) 0.4 mg PO BEDTIME [facility] Last Admin: 07/14/20 21:10 Dose: 0.4 mg Documented by: Discontinued Medications Fentanyl (Fentanyl 100 Mcg/2 Ml Sdv) 50 mcg IVPUSH ONETIME ONE Stop: 07/13/20 21:17 Last Admin: 07/13/20 21:19 Dose: 50 mcg Documented by: Sodium Chloride (Normal Saline) 1,000 mls @ 125 mls/hr IV ASDIRECTED [facility] Last Admin: 07/14/20 05:38 Dose: 125 mls/hr Documented by: Sodium Chloride (Normal Saline) 70 mls @ 3.5 mls/sec IV ASDIRECTED [facility] Last Admin: 07/13/20 22:07 Dose: 3 mls/sec Documented by: Iopamidol (Iopamidol 612 Mg/Ml 500 Ml Multipack Bottle) 94 ml IV ONETIME ONE Stop: 07/13/20 21:27 Last Admin: 07/13/20 22:07 Dose: 94 ml Documented by: Lidocaine HCl (Lidocaine 2% Jelly 10 Ml Urojet) 10 ml MUCMEM ONETIME ONE Stop: 07/13/20 23:13 Last Admin: 07/13/20 23:15 Dose: 10 ml Documented by: Lidocaine HCl (Lidocaine 2% Jelly 10 Ml Urojet) Confirm Administered Dose 10 ml .ROUTE .STK-MED ONE Stop: 07/13/20 23:15 Last Admin: 07/14/20 01:44 Dose: Not Given Documented by: Lisinopril (Lisinopril 10 Mg Tab) Confirm Administered Dose 20 mg .ROUTE .STK- MED ONE Stop: 07/14/20 01:32 Last Admin: 07/14/20 01:44 Dose: Not Given Documented by: Non-Formulary Medication (Lisinopril/Hydrochlorothiazide [Lisinopril-Hctz 20- 12.5 Mg Tab]) 1 each PO BID [facility] Last Admin: 07/14/20 02:48 Dose: Not Given Documented by: Ondansetron HCl (Ondansetron 4 Mg/2 Ml Sdv) 4 mg IVPUSH ONETIME ONE Stop: 07/13/20 21:17 Last Admin: 07/13/20 21:21 Dose: 4 mg Documented by: Pantoprazole Sodium (Pantoprazole 40 Mg Vial) 40 mg IV DAILY [facility] Last Admin: 07/14/20 08:57 Dose: 40 mg Documented by: Sodium Chloride (Sodium Chloride 0.9% 10 Ml Syringe) 10 ml FLUSH ONETIME ONE Stop: 07/13/20 21:27 Last Admin: 07/13/20 22:07 Dose: 10 ml Documented by:
== END 2020-07-15 14:00 | disposition home health service (06) | DRG 390 ==
LOC: JP.ED 21:03 → JP.MS 22:28
PROVIDERS: ADMIT Internal Medicine; ATTEND Internal Medicine
PROC: 0D9670Z Drainage of Stomach with Drainage Device, Via Natural or Artificial Opening (ICD-10-PCS; principal; 2020-07-13)
DX: K56.600 Partial intestinal obstruction, unspecified as to cause (principal); I48.0 Paroxysmal atrial fibrillation; I10 Essential (primary) hypertension; N18.31 Chronic kidney disease, stage 3a; I25.10 Atherosclerotic heart disease of native coronary artery without angina pectoris; E86.0 Dehydration; Z66 Do not resuscitate; H54.7 Unspecified visual loss; I12.9 Hypertensive chronic kidney disease with stage 1 through stage 4 chronic kidney disease, or unspecified chronic kidney disease; K21.9 Gastro-esophageal reflux disease without esophagitis; K57.90 Diverticulosis of intestine, part unspecified, without perforation or abscess without bleeding; M19.90 Unspecified osteoarthritis, unspecified site; G89.29 Other chronic pain; N42.9 Disorder of prostate, unspecified; M54.9 Dorsalgia, unspecified; F41.9 Anxiety disorder, unspecified; L20.9 Atopic dermatitis, unspecified; F32.9 Major depressive disorder, single episode, unspecified; Z85.828 Personal history of other malignant neoplasm of skin; Z95.2 Presence of prosthetic heart valve; Z90.49 Acquired absence of other specified parts of digestive tract; Z95.5 Presence of coronary angioplasty implant and graft; Z95.1 Presence of aortocoronary bypass graft; Z98.890 Other specified postprocedural states; Z79.82 Long term (current) use of aspirin; Z79.899 Other long term (current) drug therapy
CPT/HCPCS: 36415; 71045; 71045-26; 74177; 80048; 80053; 81001; 83605; 83690; 85025; 94762; 96374; 96375; 99284; 99285-25; A9270-GY; C9113; J2060; J2270; J2405; J3010; J7030; Q9967

== ENCOUNTER 2021-08-08 00:49 | Emergency (ER) | payer MEDICARE, BC ==
[2021-08-08 01:06] VITALS: BP 168/67; PULSE 69
== END 2021-08-08 10:51 | disposition home or self-care (01) ==
LOC: JP.ED 00:49
DX: K59.01 Slow transit constipation (principal); R33.9 Retention of urine, unspecified; I25.10 Atherosclerotic heart disease of native coronary artery without angina pectoris; I10 Essential (primary) hypertension; K21.9 Gastro-esophageal reflux disease without esophagitis; Z79.899 Other long term (current) drug therapy; Z79.82 Long term (current) use of aspirin; Z90.49 Acquired absence of other specified parts of digestive tract
CPT/HCPCS: 36415; 74176; 80053; 81001; 85025; 99282; 99284-25

== ENCOUNTER 2021-12-16 01:45 | Emergency (ER) | payer MEDICARE, BC ==
[2021-12-16] MEDS ORDERED: Nitroglycerin 0.4 MG Tab.SL ONE (19:05)
[2022-01-10 20:46] LABS: ESTIMATED GFR 41 mL/min (>60)
== END 2021-12-16 19:20 | disposition home or self-care (01) ==
LOC: JP.ED 01:45
DX: R53.1 Weakness (principal); R60.0 Localized edema; Z20.822 Contact with and (suspected) exposure to COVID-19
CPT/HCPCS: 36415; 80048; 85027; 99284; A9270; U0002

== ENCOUNTER 2022-02-19 04:42 | Emergency (ER) | payer MEDICARE, BC ==
[2022-02-19 04:48] VITALS: BP 111/46; PULSE 61
[2022-02-19] MEDS ORDERED: Lidocaine 1% with EPINEPHrine 1:100,000 50 ML MDV INFILT STA (04:59)
[2022-02-19] MEDS ORDERED: Bacitracin Oint 1 GM U/D Packet TOP ONE (05:14)
[2022-02-19] MEDS ORDERED: Diphtheria,Pertussis(Acell),Tetanus Vaccine 0.5 ML Syringe IM ONE (05:17)
== END 2022-02-19 09:24 | disposition home or self-care (01) ==
LOC: JP.ED 04:42
DX: S01.01XA Laceration without foreign body of scalp, initial encounter (principal); I25.10 Atherosclerotic heart disease of native coronary artery without angina pectoris; I10 Essential (primary) hypertension; Z95.1 Presence of aortocoronary bypass graft; Z79.82 Long term (current) use of aspirin; Z79.899 Other long term (current) drug therapy; Z23 Encounter for immunization; W07.XXXA Fall from chair, initial encounter
CPT/HCPCS: 12002; 70450; 90471; 90715; 99284-25

== ENCOUNTER 2022-02-25 15:33 | Emergency (ER) | payer MEDICARE, BC ==
[2022-02-25 16:32] LABS: CORONAVIRUS COVID-19 NAA NEGATIVE (NEGATIVE)
[2022-02-25 16:41] VITALS: BP 165/63; PULSE 69
[2022-02-25 16:57] LABS: ESTIMATED GFR 41 mL/min (>60)
== END 2022-02-25 19:57 | disposition home or self-care (01) ==
LOC: JP.ED 15:33
DX: R53.1 Weakness (principal); I25.10 Atherosclerotic heart disease of native coronary artery without angina pectoris; I10 Essential (primary) hypertension; Z79.82 Long term (current) use of aspirin; Z79.899 Other long term (current) drug therapy; Z90.49 Acquired absence of other specified parts of digestive tract; Z20.822 Contact with and (suspected) exposure to COVID-19
CPT/HCPCS: 0241U; 36415; 71046; 80053; 83605; 84484; 85025; 99285

== ENCOUNTER 2022-06-14 10:51 | Inpatient (IN) | payer MEDICARE, BC ==
[2022-06-14 11:51] LABS: ESTIMATED GFR 34 mL/min (>60); TROPONIN I HIGH SENSITIVITY 15.8 pg/mL (<=60.3)
[2022-06-14] MEDS ORDERED: Ketorolac 30 MG/ML SDV IVPUSH ONE (13:14)
[2022-06-14] MEDS ORDERED: cefTRIAXone 1 GM in Sodium Chloride 0.9% 50 ML IV ONE (13:14)
[2022-06-14] MEDS ORDERED: Sodium Chloride 0.9% 10 ML Syringe FLUSH PRN (13:14)
[2022-06-14] MEDS ORDERED: Acetaminophen/HYDROcodone 325-10 MG Tab PO ONE (13:56)
[2022-06-14 14:09] LABS: CORONAVIRUS COVID-19 NAA POSITIVE (NEGATIVE)
[2022-06-14] MEDS: Sodium Chloride 0.9% 1,000 ML IV SCH ×2 (14:16→22:33)
[2022-06-14] MEDS ORDERED: Ondansetron 4 MG Tab.DIS PO PRN (15:25)
[2022-06-14] MEDS ORDERED: Magnesium Hydroxide 400 MG/5 ML Susp 30 ML Cup PO PRN (15:25)
[2022-06-14] MEDS ORDERED: Ondansetron 4 MG/2 ML SDV IV PRN (15:25)
[2022-06-14] MEDS: Enoxaparin 30 MG/0.3 ML Syringe SUBCUT SCH (15:56)
[2022-06-14] MEDS: Lactobacillus Rhamnosus GG (Probiotic) Cap PO SCH (21:17)
[2022-06-14] MEDS: Acetaminophen 325 MG Tab PO PRN (21:17)
[2022-06-14] MEDS: Melatonin 3 MG Tab PO SCH (21:17)
[2022-06-15] MEDS: Sodium Chloride 0.9% 1,000 ML IV SCH (06:38)
[2022-06-15] MEDS: Lactobacillus Rhamnosus GG (Probiotic) Cap PO SCH ×2 (09:05→20:20)
[2022-06-15] MEDS: Acetaminophen 325 MG Tab PO PRN (09:06)
[2022-06-15] MEDS: cefTRIAXone 1 GM in Sodium Chloride 0.9% 50 ML IV SCH (13:43)
[2022-06-15] MEDS ORDERED: Calcium Carbonate 500 MG Tab.Chew PO ONE (14:00)
[2022-06-15] MEDS: Enoxaparin 30 MG/0.3 ML Syringe SUBCUT SCH (15:45)
[2022-06-15] MEDS: Simethicone 125 MG Tab.Chew PO PRN (15:46)
[2022-06-15] MEDS: Calcium Carbonate 500 MG Tab.Chew PO PRN (18:34)
[2022-06-15] MEDS: Pantoprazole 40 MG Tab.CR PO SCH (20:15)
[2022-06-15] MEDS: Melatonin 3 MG Tab PO SCH (20:20)
[2022-06-15] MEDS: guaiFENesin/Dextromethorphan 100-10 MG/5 ML Soln 10 ML Cup PO PRN (21:04)
[2022-06-16] MEDS: Lactobacillus Rhamnosus GG (Probiotic) Cap PO SCH ×2 (08:27→20:51)
[2022-06-16] MEDS: Pantoprazole 40 MG Tab.CR PO SCH (08:27)
[2022-06-16] MEDS: Acetaminophen 325 MG Tab PO PRN ×2 (08:43→23:24)
[2022-06-16] MEDS: Benzonatate 100 MG Cap PO PRN ×2 (08:44→21:09)
[2022-06-16] MEDS: Simethicone 125 MG Tab.Chew PO PRN ×2 (08:44→18:32)
[2022-06-16] MEDS: cefTRIAXone 1 GM in Sodium Chloride 0.9% 50 ML IV SCH (14:23)
[2022-06-16] MEDS: Calcium Carbonate 500 MG Tab.Chew PO PRN (15:12)
[2022-06-16] MEDS: Enoxaparin 30 MG/0.3 ML Syringe SUBCUT SCH (15:12)
[2022-06-16] MEDS: Melatonin 3 MG Tab PO SCH (20:51)
[2022-06-16] MEDS: guaiFENesin/Dextromethorphan 100-10 MG/5 ML Soln 10 ML Cup PO PRN (21:09)
[2022-06-17] MEDS: Pantoprazole 40 MG Tab.CR PO SCH (08:31)
[2022-06-17] MEDS: Lactobacillus Rhamnosus GG (Probiotic) Cap PO SCH ×2 (08:31→20:58)
[2022-06-17] MEDS: Acetaminophen 325 MG Tab PO PRN ×2 (10:02→14:11)
[2022-06-17] MEDS: Amoxicillin/Clavulanate K 500-125 MG Tab PO SCH ×2 (10:02→20:58)
[2022-06-17] MEDS: Simethicone 125 MG Tab.Chew PO PRN (14:11)
[2022-06-17] MEDS: Enoxaparin 30 MG/0.3 ML Syringe SUBCUT SCH (15:23)
[2022-06-17] MEDS: Melatonin 3 MG Tab PO SCH (20:59)
[2022-06-17] MEDS: LORazepam 0.5 MG Tab PO PRN (21:00)
[2022-06-17] MEDS: Benzocaine/Cetylpyridinium/Menthol Lozenge MUCMEM PRN (21:00)
[2022-06-18] MEDS: Pantoprazole 40 MG Tab.CR PO SCH (08:08)
[2022-06-18] MEDS: Amoxicillin/Clavulanate K 500-125 MG Tab PO SCH ×2 (08:08→20:28)
[2022-06-18] MEDS: Lactobacillus Rhamnosus GG (Probiotic) Cap PO SCH ×2 (08:08→20:28)
[2022-06-18] MEDS: Benzocaine/Cetylpyridinium/Menthol Lozenge MUCMEM PRN (09:29)
[2022-06-18] MEDS: Calcium Carbonate 500 MG Tab.Chew PO PRN (10:44)
[2022-06-18] MEDS ORDERED: Phenazopyridine 95 MG Tab PO ONE (13:21)
[2022-06-18] MEDS: Metoprolol Succinate 50 MG Tab.ER PO SCH (14:36)
[2022-06-18] MEDS: Diltiazem 180 MG Cap.CD PO SCH (14:36)
[2022-06-18] MEDS: Finasteride 5 MG Tab PO SCH (14:36)
[2022-06-18] MEDS: Enoxaparin 30 MG/0.3 ML Syringe SUBCUT SCH (16:02)
[2022-06-18] MEDS: Lisinopril 20 MG Tab PO SCH (20:27)
[2022-06-18] MEDS: atorvaSTATin 20 MG Tab PO SCH (20:27)
[2022-06-18] MEDS: Hydrochlorothiazide 12.5 MG Cap PO SCH (20:28)
[2022-06-18] MEDS: LORazepam 0.5 MG Tab PO PRN (20:28)
[2022-06-18] MEDS: Melatonin 3 MG Tab PO SCH (20:28)
[2022-06-18] MEDS: Tamsulosin 0.4 MG Cap.ER PO SCH (20:28)
[2022-06-18] MEDS ORDERED: DILTIAZEM HCL 90 MG PO SCH (21:00)
[2022-06-19] MEDS: Pantoprazole 40 MG Tab.CR PO SCH (07:37)
[2022-06-19] MEDS: Citalopram 20 MG Tab PO SCH (08:49)
[2022-06-19] MEDS: Amoxicillin/Clavulanate K 500-125 MG Tab PO SCH ×2 (08:49→20:15)
[2022-06-19] MEDS: Diltiazem 180 MG Cap.CD PO SCH (08:49)
[2022-06-19] MEDS: Lactobacillus Rhamnosus GG (Probiotic) Cap PO SCH ×2 (08:50→20:15)
[2022-06-19] MEDS: Hydrochlorothiazide 12.5 MG Cap PO SCH ×2 (08:50→20:15)
[2022-06-19] MEDS: Lisinopril 20 MG Tab PO SCH ×2 (08:50→20:15)
[2022-06-19] MEDS: Finasteride 5 MG Tab PO SCH (08:50)
[2022-06-19] MEDS: Aspirin 81 MG Tab.EC PO SCH (08:50)
[2022-06-19] MEDS: Metoprolol Succinate 50 MG Tab.ER PO SCH (08:51)
[2022-06-19] MEDS: Acetaminophen 325 MG Tab PO PRN (12:37)
[2022-06-19] MEDS ORDERED: Loperamide 2 MG Cap PO PRN (13:28)
[2022-06-19] MEDS: Enoxaparin 30 MG/0.3 ML Syringe SUBCUT SCH (15:15)
[2022-06-19] MEDS: Tamsulosin 0.4 MG Cap.ER PO SCH (20:14)
[2022-06-19] MEDS: Melatonin 3 MG Tab PO SCH (20:14)
[2022-06-19] MEDS: LORazepam 0.5 MG Tab PO PRN (20:15)
[2022-06-19] MEDS: atorvaSTATin 20 MG Tab PO SCH (20:15)
[2022-06-20] MEDS: Pantoprazole 40 MG Tab.CR PO SCH (07:42)
[2022-06-20] MEDS: Citalopram 20 MG Tab PO SCH (08:41)
[2022-06-20] MEDS: Lactobacillus Rhamnosus GG (Probiotic) Cap PO SCH (08:41)
[2022-06-20] MEDS: Aspirin 81 MG Tab.EC PO SCH (08:41)
[2022-06-20] MEDS: Diltiazem 180 MG Cap.CD PO SCH (08:41)
[2022-06-20] MEDS: Hydrochlorothiazide 12.5 MG Cap PO SCH (08:42)
[2022-06-20] MEDS: Lisinopril 20 MG Tab PO SCH (08:42)
[2022-06-20] MEDS: Metoprolol Succinate 50 MG Tab.ER PO SCH (08:42)
[2022-06-20] MEDS: Finasteride 5 MG Tab PO SCH (08:43)
[2022-06-20] MEDS: Amoxicillin/Clavulanate K 500-125 MG Tab PO SCH (08:43)
[2022-06-20 09:50] VITALS: BP 117/41; PULSE 75
== END 2022-06-20 10:50 | disposition home health service (06) | DRG 689 ==
LOC: JP.ED 10:51 → JP.MS 13:57
PROVIDERS: ADMIT Internal Medicine; ATTEND Internal Medicine
PROC: 8E0ZXY6 Isolation (ICD-10-PCS; principal; 2022-06-14)
DX: N39.0 Urinary tract infection, site not specified (principal); N30.00 Acute cystitis without hematuria; I10 Essential (primary) hypertension; U07.1 COVID-19; I25.10 Atherosclerotic heart disease of native coronary artery without angina pectoris; I48.0 Paroxysmal atrial fibrillation; E86.0 Dehydration; B95.2 Enterococcus as the cause of diseases classified elsewhere; Z95.5 Presence of coronary angioplasty implant and graft; K21.9 Gastro-esophageal reflux disease without esophagitis; I12.9 Hypertensive chronic kidney disease with stage 1 through stage 4 chronic kidney disease, or unspecified chronic kidney disease; M19.90 Unspecified osteoarthritis, unspecified site; N18.32 Chronic kidney disease, stage 3b; M54.9 Dorsalgia, unspecified; N40.1 Benign prostatic hyperplasia with lower urinary tract symptoms; G89.29 Other chronic pain; F41.9 Anxiety disorder, unspecified; F32.A Depression, unspecified; Z90.49 Acquired absence of other specified parts of digestive tract; Z79.82 Long term (current) use of aspirin; Z79.899 Other long term (current) drug therapy; Z95.1 Presence of aortocoronary bypass graft; Z98.890 Other specified postprocedural states; Z87.891 Personal history of nicotine dependence
CPT/HCPCS: 0241U; 36415; 74018; 80048; 80053; 81001; 83605; 84484; 85025; 85027; 87086; 87088; 87186; 87493; 93005; 96361; 96365; 96375; 97110; 97162; 97165; 97530; 97535; 99284; 99285; A9270-GY; J0696; J1650; J1885; J3490; J7030

== ENCOUNTER 2022-06-24 10:08 | Emergency (ER) | payer MEDICARE, BC ==
[2022-06-24] MEDS ORDERED: Amoxicillin/Clavulanate K 875-125 MG Tab PO ONE (10:11)
[2022-06-24 10:12] VITALS: BP 129/43; PULSE 77
[2022-06-24] MEDS ORDERED: Diphtheria,Pertussis(Acell),Tetanus Vaccine 0.5 ML Syringe IM ONE (10:12)
== END 2022-06-24 14:19 | disposition home or self-care (01) ==
LOC: JP.ED 10:08
DX: S61.412A Laceration without foreign body of left hand, initial encounter (principal); S61.411A Laceration without foreign body of right hand, initial encounter; S40.012A Contusion of left shoulder, initial encounter; S00.01XA Abrasion of scalp, initial encounter; R10.9 Unspecified abdominal pain; G89.29 Other chronic pain; I25.10 Atherosclerotic heart disease of native coronary artery without angina pectoris; I10 Essential (primary) hypertension; R29.6 Repeated falls; Z95.1 Presence of aortocoronary bypass graft; Z79.82 Long term (current) use of aspirin; Z79.899 Other long term (current) drug therapy; Z23 Encounter for immunization; W19.XXXA Unspecified fall, initial encounter
CPT/HCPCS: 36415; 70450; 70450-26; 71045; 71045-26; 73030-26-LT; 73030-LT; 80048; 85025; 90471; 90715; 99284; 99285-25

== ENCOUNTER 2022-08-27 11:07 | Emergency (ER) | payer MEDICARE, BC ==
[2022-08-27 11:11] VITALS: BP 151/64; PULSE 78
[2022-08-27 11:30] LABS: BASOPHILS ABSOLUTE AUTO 0.03 K/uL (0.00-0.10); BASOPHILS PERCENT AUTO 0.3 % (0.1-1.3); EOSINOPHILS ABSOLUTE AUTO 0.18 K/uL (0.00-0.40); EOSINOPHILS PERCENT AUTO 1.8 % (0.0-5.4); HEMATOCRIT 30.3 % (38.4-49.7); IMMATURE GRAN ABSOLUTE AUTO 0.07 K/uL (0.00-0.23); IMMATURE GRAN PERCENT AUTO 0.7 % (0.0-0.7); LYMPHOCYTES ABSOLUTE AUTO 0.85 K/uL (0.8-3.3); LYMPHOCYTES PERCENT AUTO 8.7 % (11.4-47.7); MEAN CORPUSCULAR HEMOGLOBIN 29.6 pg (31.6-35.5); MEAN CORPUSCULAR VOLUME 89.6 fL (81.4-99.0); MONOCYTES ABSOLUTE AUTO 0.86 K/uL (0.20-0.90); MONOCYTES PERCENT AUTO 8.8 % (3.3-12.6); NEUTROPHILS ABSOLUTE AUTO 7.82 K/uL (1.0-7.6); NEUTROPHILS PERCENT AUTO 79.7 % (40.0-78.1); PLATELET COUNT,PLT 244 K/uL (130-375); RED BLOOD CELL COUNT 3.38 M/uL (4.14-5.76); WHITE BLOOD CELL COUNT,WBC 9.8 K/uL (3.2-11.0)
[2022-08-27 11:49] LABS: CALCIUM 9.2 mg/dL (8.5-10.1); CREATININE 1.4 mg/dL (0.8-1.3); EST CRCL DRUG DOSING (CG) 33.7 mL/min
[2022-08-27 11:56] LABS: ANION GAP 12.9 mmol/L (5.0-14.0); POTASSIUM,K 3.9 mmol/L (3.6-5.2)
[2022-08-27] MEDS ORDERED: Glycerin 2.1 GM Supp RECTAL ONE (12:13)
[2022-08-27 12:14] LABS: APPEARANCE,URINE TURBID (CLEAR); BILIRUBIN,URINE NEGATIVE (NEGATIVE); COLOR,URINE YELLOW (YELLOW); GLUCOSE,URINE NEGATIVE (NEGATIVE); KETONES,URINE NEGATIVE (NEGATIVE); LEUKOCYTE ESTERASE,URINE LARGE (NEGATIVE); NITRITE,URINE NEGATIVE (NEGATIVE); OCCULT BLOOD,URINE MODERATE (NEGATIVE); PH,URINE 5.5 (5.0-8.0); PROTEIN,URINE NEGATIVE (NEGATIVE); UROBILINOGEN,URINE 0.2 EU/dL (0.2-1.0)
[2022-08-27 12:24] LABS: AMORPHOUS SEDIMENT,URINE FEW; BACTERIA,URINE MODERATE; EPITHELIAL CELLS,URINE NOT SEEN; MUCUS,URINE FEW; WBC,URINE PACKED (0-5)
== END 2022-08-27 12:54 | disposition home or self-care (01) ==
LOC: JP.ED 11:07
DX: N40.1 Benign prostatic hyperplasia with lower urinary tract symptoms (principal); R33.8 Other retention of urine; K59.00 Constipation, unspecified; D64.9 Anemia, unspecified; I25.10 Atherosclerotic heart disease of native coronary artery without angina pectoris; I10 Essential (primary) hypertension; Z79.82 Long term (current) use of aspirin; Z79.899 Other long term (current) drug therapy; Z95.1 Presence of aortocoronary bypass graft
CPT/HCPCS: 36415; 51702; 80048; 81001; 85025; 87077; 87086; 87088; 87186; 99284; A9270

== ENCOUNTER 2022-09-23 06:33 | Emergency (ER) | payer MEDICARE, BC ==
[2022-09-23 06:36] VITALS: BP 135/59; PULSE 73
[2022-09-23] MEDS ORDERED: Acetaminophen/HYDROcodone 325-5 MG Tab PO ONE (07:30)
[2022-09-23] MEDS ORDERED: Bacitracin Oint 1 GM U/D Packet TOP ONE ×2 (07:31→07:34)
== END 2022-09-23 10:30 | disposition home or self-care (01) ==
LOC: JP.ED 06:33
DX: S80.01XA Contusion of right knee, initial encounter (principal); I25.810 Atherosclerosis of coronary artery bypass graft(s) without angina pectoris; I10 Essential (primary) hypertension; M19.90 Unspecified osteoarthritis, unspecified site; Z86.16 Personal history of COVID-19; Z79.82 Long term (current) use of aspirin; Z79.899 Other long term (current) drug therapy; W18.30XA Fall on same level, unspecified, initial encounter; Y92.009 Unspecified place in unspecified non-institutional (private) residence as the place of occurrence of the external cause
CPT/HCPCS: 73502; 73562; 99283; A9270

== ENCOUNTER 2022-09-26 21:36 | Emergency (ER) | payer MEDICARE, BC ==
[2022-09-26 22:56] VITALS: BP 142/67; PULSE 71
[2022-09-26] MEDS: Acetaminophen 325 MG Tab PO ONE (23:53)
== END 2022-09-27 02:11 | disposition home or self-care (01) ==
LOC: JP.ED 21:36
DX: S00.03XA Contusion of scalp, initial encounter (principal); S00.81XA Abrasion of other part of head, initial encounter; R29.6 Repeated falls; I25.10 Atherosclerotic heart disease of native coronary artery without angina pectoris; I10 Essential (primary) hypertension; Z86.16 Personal history of COVID-19; Z95.5 Presence of coronary angioplasty implant and graft; Z79.82 Long term (current) use of aspirin; Z79.899 Other long term (current) drug therapy; W05.0XXA Fall from non-moving wheelchair, initial encounter
CPT/HCPCS: 70450; 73562; 99284; A9270

== ENCOUNTER 2022-10-03 09:51 | Inpatient (IN) | payer OTHER, MEDICARE, BC ==
[2022-10-03] MEDS ORDERED: Acetaminophen 500 MG Tab PO ONE (10:41)
[2022-10-03 11:37] LABS: BASOPHILS ABSOLUTE AUTO 0.03 K/uL (0.00-0.10); BASOPHILS PERCENT AUTO 0.3 % (0.1-1.3); EOSINOPHILS ABSOLUTE AUTO 0.15 K/uL (0.00-0.40); EOSINOPHILS PERCENT AUTO 1.6 % (0.0-5.4); HEMATOCRIT 32.6 % (38.4-49.7); HEMOGLOBIN 11.1 g/dL (12.9-16.9); IMMATURE GRAN ABSOLUTE AUTO 0.12 K/uL (0.00-0.23); IMMATURE GRAN PERCENT AUTO 1.2 % (0.0-0.7); LYMPHOCYTES PERCENT AUTO 13.5 % (11.4-47.7); MEAN CORPUSCULAR HEMOGLOBIN 29.1 pg (31.6-35.5); MEAN CORPUSCULAR VOLUME 85.6 fL (81.4-99.0); MONOCYTES ABSOLUTE AUTO 0.97 K/uL (0.20-0.90); MONOCYTES PERCENT AUTO 10.1 % (3.3-12.6); NEUTROPHILS ABSOLUTE AUTO 7.08 K/uL (1.0-7.6); NEUTROPHILS PERCENT AUTO 73.3 % (40.0-78.1); PLATELET COUNT,PLT 264 K/uL (130-375); RED BLOOD CELL COUNT 3.81 M/uL (4.14-5.76); WHITE BLOOD CELL COUNT,WBC 9.7 K/uL (3.2-11.0)
[2022-10-03 11:52] LABS: ANION GAP 14.6 mmol/L (5.0-14.0); CREATININE 1.6 mg/dL (0.8-1.3); EST CRCL DRUG DOSING (CG) 26.11 mL/min; POTASSIUM,K 3.6 mmol/L (3.6-5.2)
[2022-10-03 14:04] LABS: APPEARANCE,URINE SLIGHTLY CLOUDY (CLEAR); BILIRUBIN,URINE NEGATIVE (NEGATIVE); COLOR,URINE YELLOW (YELLOW); GLUCOSE,URINE NEGATIVE (NEGATIVE); KETONES,URINE NEGATIVE (NEGATIVE); LEUKOCYTE ESTERASE,URINE SMALL (NEGATIVE); NITRITE,URINE NEGATIVE (NEGATIVE); OCCULT BLOOD,URINE SMALL (NEGATIVE); PH,URINE 5.5 (5.0-8.0); PROTEIN,URINE 30 mg/dL (NEGATIVE); UROBILINOGEN,URINE 0.2 EU/dL (0.2-1.0)
[2022-10-03 14:08] LABS: BASE EXCESS VENOUS -2.4 mm/L; BICARBONATE,VENOUS 21.4 mmol/L; CARBOXYHEMOGLOBIN 2.6 % (0.0-1.6); O2 SATURATION VENOUS 74.5; OXYHEMOGLOBIN 71.8 %; PCO2 VENOUS 35.4 mm/Hg; PH,VENOUS 7.398 (7.350-7.450); PO2 VENOUS 43.3 mm/Hg; TOTAL HEMOGLOBIN 11.3 g/dL (13.5-18.0)
[2022-10-03 14:12] LABS: BACTERIA,URINE MODERATE; EPITHELIAL CELLS,URINE RARE; MUCUS,URINE NOT SEEN; WBC,URINE 30-40 (0-5)
[2022-10-03 14:13] LABS: AMORPHOUS SEDIMENT,URINE NOT SEEN
[2022-10-03] MEDS ORDERED: Bacitracin Oint 1 GM U/D Packet TOP ONE (14:28)
[2022-10-03] MEDS ORDERED: cefTRIAXone 1 GM in Sodium Chloride 0.9% 50 ML IV ONE (14:30)
[2022-10-03] MEDS ORDERED: Sodium Chloride 0.9% 10 ML Syringe FLUSH PRN (14:30)
[2022-10-03 14:56] LABS: TSH ULTRASENSITIVE 0.623 uIU/mL (0.358-3.740)
[2022-10-03 19:09] LABS: CORONAVIRUS COVID-19 NAA NEGATIVE (NEGATIVE); INFLUENZA A NAA NEGATIVE (NEGATIVE); INFLUENZA B NAA NEGATIVE (NEGATIVE); RESPIRATORY SYNCYTIAL VIR NAA NEGATIVE (NEGATIVE)
[2022-10-03] MEDS ORDERED: Sennosides/Docusate Sodium 50-8.6 MG Tab PO PRN (19:58)
[2022-10-03] MEDS ORDERED: Naloxone 0.4 MG/ML SDV IVPUSH PRN (19:58)
[2022-10-03] MEDS ORDERED: Ondansetron 4 MG Tab.DIS PO PRN (19:58)
[2022-10-03] MEDS ORDERED: Morphine 2 MG/ML SYRINGE IVPUSH PRN (19:58)
[2022-10-03] MEDS ORDERED: Nitroglycerin 0.4 MG Tab.SL SL PRN (19:58)
[2022-10-03] MEDS ORDERED: Acetaminophen 325 MG Tab PO PRN (19:58)
[2022-10-03] MEDS ORDERED: Ondansetron 4 MG/2 ML SDV IV PRN (19:58)
[2022-10-03] MEDS ORDERED: DILTIAZEM HCL 90 MG PO SCH (21:00)
[2022-10-03] MEDS ORDERED: Pantoprazole 40 MG Vial IV SCH (21:00)
[2022-10-03] MEDS ORDERED: Non-Formulary Medication 1 Each (Lisinopril/Hydrochlorothiazide [Lisinopril-Hctz 20-12.5 M PO SCH (21:00)
[2022-10-03] MEDS: Hydrochlorothiazide 12.5 MG Cap PO SCH (23:23)
[2022-10-03] MEDS: Tamsulosin 0.4 MG Cap.ER PO SCH (23:27)
[2022-10-03] MEDS: atorvaSTATin 20 MG Tab PO SCH (23:27)
[2022-10-03] MEDS: Lisinopril 20 MG Tab PO SCH (23:28)
[2022-10-03] MEDS: Melatonin 3 MG Tab PO PRN (23:37)
[2022-10-03] MEDS: Acetaminophen/HYDROcodone 325-10 MG Tab PO PRN (23:37)
[2022-10-03] MEDS: LORazepam 0.5 MG Tab PO PRN (23:42)
[2022-10-04 05:48] LABS: BASOPHILS PERCENT AUTO 0.3 % (0.1-1.3); EOSINOPHILS ABSOLUTE AUTO 0.27 K/uL (0.00-0.40); EOSINOPHILS PERCENT AUTO 3.5 % (0.0-5.4); HEMATOCRIT 31.2 % (38.4-49.7); HEMOGLOBIN 10.5 g/dL (12.9-16.9); IMMATURE GRAN ABSOLUTE AUTO 0.08 K/uL (0.00-0.23); LYMPHOCYTES ABSOLUTE AUTO 1.88 K/uL (0.8-3.3); LYMPHOCYTES PERCENT AUTO 24.6 % (11.4-47.7); MEAN CORPUSCULAR HEMOGLOBIN 29.2 pg (31.6-35.5); MEAN CORPUSCULAR HGB CONC 33.7 g/dL (31.6-35.5); MEAN CORPUSCULAR VOLUME 86.9 fL (81.4-99.0); MONOCYTES PERCENT AUTO 10.5 % (3.3-12.6); NEUTROPHILS PERCENT AUTO 60.1 % (40.0-78.1); PLATELET COUNT,PLT 251 K/uL (130-375); RED BLOOD CELL COUNT 3.59 M/uL (4.14-5.76); WHITE BLOOD CELL COUNT,WBC 7.7 K/uL (3.2-11.0)
[2022-10-04 05:58] LABS: BASOPHILS ABSOLUTE AUTO 0.02 K/uL (0.00-0.10)
[2022-10-04 06:10] LABS: CALCIUM 8.3 mg/dL (8.5-10.1); CREATININE 1.3 mg/dL (0.8-1.3); EST CRCL DRUG DOSING (CG) 34.6 mL/min; POTASSIUM,K 3.6 mmol/L (3.6-5.2)
[2022-10-04 06:14] LABS: ANION GAP 13.6 mmol/L (5.0-14.0)
[2022-10-04] MEDS ORDERED: Potassium Chloride 20 MEQ Tab.ER PO ONE (09:00)
[2022-10-04] MEDS: Diltiazem 180 MG Cap.CD PO SCH (09:37)
[2022-10-04] MEDS: Citalopram 20 MG Tab PO SCH (09:37)
[2022-10-04] MEDS: Hydrochlorothiazide 12.5 MG Cap PO SCH ×2 (09:37→21:25)
[2022-10-04] MEDS: Aspirin 81 MG Tab.EC PO SCH (09:37)
[2022-10-04] MEDS: Finasteride 5 MG Tab PO SCH (09:38)
[2022-10-04] MEDS: Lisinopril 20 MG Tab PO SCH ×2 (09:38→21:26)
[2022-10-04] MEDS: Metoprolol Succinate 50 MG Tab.ER PO SCH (09:38)
[2022-10-04] MEDS: Sodium Chloride 0.9% 1,000 ML IV SCH ×2 (12:26→12:44)
[2022-10-04] MEDS: cefTRIAXone 1 GM in Sodium Chloride 0.9% 50 ML IV SCH (13:45)
[2022-10-04] MEDS: Acetaminophen/HYDROcodone 325-10 MG Tab PO PRN (19:50)
[2022-10-04] MEDS: atorvaSTATin 20 MG Tab PO SCH (21:25)
[2022-10-04] MEDS: Tamsulosin 0.4 MG Cap.ER PO SCH (21:25)
[2022-10-04] MEDS: Pantoprazole 40 MG Tab.CR PO SCH (21:26)
[2022-10-04] MEDS: Melatonin 3 MG Tab PO PRN (22:17)
[2022-10-05] MEDS: LORazepam 0.5 MG Tab PO PRN ×2 (01:34→22:03)
[2022-10-05 04:36] LABS: BASOPHILS ABSOLUTE AUTO 0.03 K/uL (0.00-0.10); BASOPHILS PERCENT AUTO 0.4 % (0.1-1.3); EOSINOPHILS PERCENT AUTO 4.8 % (0.0-5.4); HEMATOCRIT 30.2 % (38.4-49.7); IMMATURE GRAN ABSOLUTE AUTO 0.11 K/uL (0.00-0.23); IMMATURE GRAN PERCENT AUTO 1.3 % (0.0-0.7); LYMPHOCYTES ABSOLUTE AUTO 1.78 K/uL (0.8-3.3); LYMPHOCYTES PERCENT AUTO 21.5 % (11.4-47.7); MEAN CORPUSCULAR HEMOGLOBIN 28.9 pg (31.6-35.5); MEAN CORPUSCULAR HGB CONC 33.1 g/dL (31.6-35.5); MEAN CORPUSCULAR VOLUME 87.3 fL (81.4-99.0); MONOCYTES ABSOLUTE AUTO 0.86 K/uL (0.20-0.90); MONOCYTES PERCENT AUTO 10.4 % (3.3-12.6); NEUTROPHILS ABSOLUTE AUTO 5.09 K/uL (1.0-7.6); NEUTROPHILS PERCENT AUTO 61.6 % (40.0-78.1); PLATELET COUNT,PLT 236 K/uL (130-375); RED BLOOD CELL COUNT 3.46 M/uL (4.14-5.76); WHITE BLOOD CELL COUNT,WBC 8.3 K/uL (3.2-11.0)
[2022-10-05 04:53] LABS: CALCIUM 8.2 mg/dL (8.5-10.1); CREATININE 1.1 mg/dL (0.8-1.3); EST CRCL DRUG DOSING (CG) 40.89 mL/min; POTASSIUM,K 4.3 mmol/L (3.6-5.2)
[2022-10-05 05:13] LABS: ANION GAP 14.3 mmol/L (5.0-14.0)
[2022-10-05] MEDS: Aspirin 81 MG Tab.EC PO SCH (08:29)
[2022-10-05] MEDS: Finasteride 5 MG Tab PO SCH (08:30)
[2022-10-05] MEDS: Lisinopril 20 MG Tab PO SCH ×2 (08:30→22:15)
[2022-10-05] MEDS: Hydrochlorothiazide 12.5 MG Cap PO SCH ×2 (08:30→21:55)
[2022-10-05] MEDS: Diltiazem 180 MG Cap.CD PO SCH (08:30)
[2022-10-05] MEDS: Citalopram 20 MG Tab PO SCH (08:30)
[2022-10-05] MEDS: Metoprolol Succinate 50 MG Tab.ER PO SCH (08:30)
[2022-10-05] MEDS: Acetaminophen/HYDROcodone 325-10 MG Tab PO PRN ×2 (09:39→18:49)
[2022-10-05] MEDS: cefTRIAXone 1 GM in Sodium Chloride 0.9% 50 ML IV SCH (12:36)
[2022-10-05] MEDS ORDERED: Cefdinir 300 MG Cap PO SCH (21:00)
[2022-10-05] MEDS: atorvaSTATin 20 MG Tab PO SCH (21:54)
[2022-10-05] MEDS: Pantoprazole 40 MG Tab.CR PO SCH (21:54)
[2022-10-05] MEDS: Tamsulosin 0.4 MG Cap.ER PO SCH (22:04)
[2022-10-05] MEDS: Melatonin 3 MG Tab PO PRN (22:40)
[2022-10-06] MEDS: Acetaminophen/HYDROcodone 325-10 MG Tab PO PRN ×2 (05:52→13:35)
[2022-10-06] MEDS: Hydrochlorothiazide 12.5 MG Cap PO SCH ×2 (08:35→20:36)
[2022-10-06] MEDS: Aspirin 81 MG Tab.EC PO SCH (08:35)
[2022-10-06] MEDS: Citalopram 20 MG Tab PO SCH (08:35)
[2022-10-06] MEDS: Finasteride 5 MG Tab PO SCH (08:36)
[2022-10-06] MEDS: Diltiazem 180 MG Cap.CD PO SCH (08:37)
[2022-10-06] MEDS: Lisinopril 20 MG Tab PO SCH ×2 (08:38→20:34)
[2022-10-06] MEDS: Metoprolol Succinate 50 MG Tab.ER PO SCH (08:40)
[2022-10-06] MEDS: Pantoprazole 40 MG Tab.CR PO SCH (20:34)
[2022-10-06] MEDS: Tamsulosin 0.4 MG Cap.ER PO SCH (20:34)
[2022-10-06] MEDS: atorvaSTATin 20 MG Tab PO SCH (20:36)
[2022-10-06] MEDS: Melatonin 3 MG Tab PO PRN (20:37)
[2022-10-07 05:37] VITALS: BP 114/74
[2022-10-07] MEDS: Metoprolol Succinate 50 MG Tab.ER PO SCH (09:06)
[2022-10-07] MEDS: Lisinopril 20 MG Tab PO SCH (09:07)
[2022-10-07 09:09] VITALS: PULSE 64
[2022-10-07] MEDS: Citalopram 20 MG Tab PO SCH (10:17)
[2022-10-07] MEDS: Hydrochlorothiazide 12.5 MG Cap PO SCH (10:18)
[2022-10-07] MEDS: Diltiazem 180 MG Cap.CD PO SCH (10:18)
[2022-10-07] MEDS: Finasteride 5 MG Tab PO SCH (10:18)
[2022-10-07] MEDS: Aspirin 81 MG Tab.EC PO SCH (10:18)
== END 2022-10-07 12:40 | disposition hospice, home (50) | DRG 690 ==
LOC: JP.ED 09:51 → JP.MS 19:10 → EEVIPCON 19:10
PROVIDERS: ADMIT Internal Medicine; ATTEND Internal Medicine
DX: N39.0 Urinary tract infection, site not specified (principal); Z74.1 Need for assistance with personal care; F32.2 Major depressive disorder, single episode, severe without psychotic features; S21.109A Unspecified open wound of unspecified front wall of thorax without penetration into thoracic cavity, initial encounter; E87.1 Hypo-osmolality and hyponatremia; G93.49 Other encephalopathy; N13.8 Other obstructive and reflux uropathy; F41.9 Anxiety disorder, unspecified; S51.811A Laceration without foreign body of right forearm, initial encounter; N40.1 Benign prostatic hyperplasia with lower urinary tract symptoms; Z66 Do not resuscitate; G30.9 Alzheimer's disease, unspecified; S00.03XA Contusion of scalp, initial encounter; F02.80 Dementia in other diseases classified elsewhere, unspecified severity, without behavioral disturbance, psychotic disturbance, mood disturbance, and anxiety; I12.9 Hypertensive chronic kidney disease with stage 1 through stage 4 chronic kidney disease, or unspecified chronic kidney disease; R29.6 Repeated falls; D63.1 Anemia in chronic kidney disease; E86.0 Dehydration; G89.29 Other chronic pain; M54.2 Cervicalgia; I13.0 Hypertensive heart and chronic kidney disease with heart failure and stage 1 through stage 4 chronic kidney disease, or unspecified chronic kidney disease; Z20.822 Contact with and (suspected) exposure to COVID-19; E11.22 Type 2 diabetes mellitus with diabetic chronic kidney disease; Z96.649 Presence of unspecified artificial hip joint; I50.9 Heart failure, unspecified; Z85.828 Personal history of other malignant neoplasm of skin; N18.31 Chronic kidney disease, stage 3a; I25.10 Atherosclerotic heart disease of native coronary artery without angina pectoris; Z97.3 Presence of spectacles and contact lenses; Z90.49 Acquired absence of other specified parts of digestive tract; Z98.890 Other specified postprocedural states; Z78.9 Other specified health status; K21.9 Gastro-esophageal reflux disease without esophagitis; Z86.16 Personal history of COVID-19; M25.561 Pain in right knee; M25.562 Pain in left knee; M54.50 Low back pain, unspecified; Z79.82 Long term (current) use of aspirin; Z79.899 Other long term (current) drug therapy; Z95.1 Presence of aortocoronary bypass graft; Z95.2 Presence of prosthetic heart valve; W18.30XA Fall on same level, unspecified, initial encounter; Z95.5 Presence of coronary angioplasty implant and graft
CPT/HCPCS: 0241U; 36415; 70450; 70450-26; 80048; 80307; 81001; 82140; 82607; 82803; 84443; 85025; 87086; 96365; 97110-GP; 97116-GP; 97161-GP; 97530-GP; 99222; 99232; 99238; 99285; 99285-25; A9270-GY; C9113; J0696; J3490; J7030